=== PATIENT | male | born 1950 | race Caucasian/White ===

== ENCOUNTER 2016-04-19 01:25 | Emergency (ER) | payer OTHER ==
[~2016-04-19] VITALS: Ht 160 cm; Wt 86.2 kg
[~2016-04-19 01:25] MED LIST: ADVAIR 250-501 EACH INH; ADVAIR DISKUS 21 DSK INH; ALBUTEROL 3 ML3 ML INH; ALBUTEROL0.09 MG/A1 INH; ASPIR 8181 MG PO; ATIVAN1 M1 PO; ATROVENT 0.02%2.5 ML INH; BYSTOLIC10 MG PO; BYSTOLIC20 MG PO; CEFTIN500 M1 PO; CILOSTAZOL100 MG PO; CRESTOR20 M2 PO; FUROSEMIDE40 MG PO; GABAPENTIN100 M2 PO; HYDRODIURIL 112.5 MG PO; HYDROXYZINE PAM25 MG PO; KLOR-CON 10MEQ10 MEQ PO; LASIX20 MG PO; LASIX40 MG PO; LIDOCAINE1 EACH TOP; METOLAZONE2.5 M1 PO; METOLAZONE5 M1 PO; MORPHINE SULFAT10 M1 PO; MORPHINE SULFAT15 M2 PO; NAC600 MG PO; NATURAL IRON65 MG PO; NITROSTAT0.4 M1 SL; NOVOLOG FL100 UNIT/1 SC; Nitro-Bid TOP; OMEPRAZOLE10 M1 PO; OMEPRAZOLE40 MG PO; PLAVIX 75MG TAB75 MG PO; PREDNISONE 10MG10 M1 PO; PREDNISONE10 M2 PO; RANEXA1000 MG PO; ROCEPHIN1000 MG IV; TUDORZA PR400 MCG/Ac INH; VALSARTAN AND H1 TA1 PO; VALSARTAN320 MG PO; VITAMIN D1000 IU PO; ZETIA10 MG PO; ZITHROMAX500 M2 PO; ZOFRAN4 M1 SL; ZONTIVITY2.08 MG PO
--- NOTE | 2016-04-19 01:32 | ED UPPER/LOWER EXTREMITY COMPL ---
History of Present Illness General Chief Complaint: Foot or Ankle Injury Stated Complaint: RIGHT ANKLE PAIN Source: patient Exam Limitations: no limitations Vital Signs & Intake/Output Vital Signs & Intake/Output Vital Signs Date Time Temp Pulse Resp B/P Pulse O2 O2 Flow FiO2 Ox Delivery Rate 04/19 0130 97.0 73 20 111/63 91 Nasal 2.0L Cannula Allergies Coded Allergies: amoxicillin (Severe, TROUBLE BREATHING AND RASH 08/01/15) Penicillins (UNKNOWN 08/01/15) Opioids - Morphine Analogues (SENSITIVITY 08/01/15) Uncoded Allergies: ANTIBIOTIC THAT STARTS WITH AN "A" (UNKNOWN 05/05/12) Reconcile Medications Aclidinium [place] (Tudorza Pressair) 400 MCG/Actuation MARTIN 400 MCG INH BID BRTH (Reported) Albuterol Sulfate (Albuterol Sulfate Hfa) 0.09 MG/Actuation MARTIN 2 PUFF INH Q4- 6 PRN PRN SHORTNESS OF BREATH (Reported) 90 MCG PER PUFF Aspirin (Ecotrin) 81 MG TABLET.DR 1 TAB PO DAILY HEART (Reported) Cefuroxime Axetil (Ceftin) 500 MG TABLET 1 TAB PO BID PNUEMONIA with food Cholecalciferol (Vitamin D3) 1,000 IU TAB 1,000 IU PO DAILY VITAMIN D SUPPLEMET (Reported) Clopidogrel Bisulfate (Plavix) 75 MG TABLET 1 TAB PO DAILY HEART (Reported) FERROUS SULFATE (IRON) 325 MG (65 MG IRON) TABLET 1 TAB PO DAILY SUPPLEMENT ( Reported) FLUTICASONE/SALMETEROL (Advair 250-50 Diskus) 250 MCG-50 MCG/DOSE BLST.W.DEV 1 PUF INH BID copd (Reported) Furosemide 40 MG TAB 1 TAB PO DAILY WATER PILL (Reported) Gabapentin 100 MG CAPSULE 1 CAP PO TID BACK PAIN Hydromorphone HCl (Dilaudid) 4 MG TABLET 1 TAB PO 4XDP PRN PAIN TEN...[id number] Insulin Aspart, Recombinant (Novolog Flexpen) 100 UNIT/1 ML INSULN.PEN 1 UNIT SC SI steroid induced hyperglycemia BEFORE MEALS Blood Insulin Sugar Units <80 0 81-100 0 101-200 2 201-250 4 251-300 6 301-350 8 351-400 10 >400 Call Doctor AT BEDTIME Blood Insulin Sugar Units <80 0 81-100 0 101-200 0 201-250 2 251-300 3 301-350 4 351-400 5 >400 Call Doctor Lidocaine 1 EACH ADH..PATCH 1 PAT TOP DAILY PRN DIABETIC NUEROPATHY PLEASE PUT PATCH EVERYDAY IN THE AREA OF PAIN(WHEN IN PAIN), KEEP IT FOR 10 TO 12 HOURS AMD REMOVE IT NIGHT TIME OR FOR FEW HOURS BEFORE USING THE NEXT PATCH THE FOLLOWING DAY. Lorazepam (Ativan) 1 MG TABLET 1 TAB PO BID PRN anxiety (Reported) Metolazone 5 MG TABLET 1 TAB PO EOD WATERPILL (Reported) Nebivolol Hydrochloride (Bystolic) 10 MG TAB 1 TAB PO DAILY HEART (Reported) Nitroglycerin (Nitrostat) 0.4 MG TAB.SUBL 1 TAB SL SI chest pain (Reported) 1st sign of attack; may repeat every 5 minutes until relief; if pain persists after 3 tablets in 15 minutes, prompt medical att Omeprazole 40 MG CAPSULE.DR 1 TAB PO DAILY STOMACH (Reported) Omeprazole 10 MG CAPSULE.DR 1 CAP PO DAILY STOMACH UPSET PLEASE TAKE ONE TABLET 30 MINS PRIOR TO TAKING PAIN MEDICATION TO PREVENT STOMACH UPSET. POTASSIUM CHLORIDE (KLOR-CON 10mEq TAB) 10 MEQ TABLET.ER 2 TAB PO DAILY SUPPLEMENT (Reported) Prednisone 10 MG TABLET 1 TAB PO SI SHORTNESS OF BREATH On Take 11/27-11/28 3 TABS 11/29-11/30 2 TABS 12/01-12/02 1 TAB, THEN STOP Rosuvastatin Calcium (Crestor) 20 MG TABLET 1 TAB PO DAILY hld (Reported) Valsartan 320 MG TAB 1 TAB PO DAILY HEART (Reported) Vorapaxar Sulfate (Zontivity) 2.08 MG TABLET 1 TAB PO DAILY blood thinner ( Reported) Triage Nurses Notes Reviewed? yes Onset: Abrupt Duration: day(s):, constant Timing: recent history Severity: mild, moderate Pain/Injury Location: Right: Ankle. Method of Injury: fall Modifying Factors: Improves With: rest. Worsens With: movement. HPI: 66-year-old gentleman history of O2 dependent COPD presents with right ankle pain. He states that yesterday he stepped off a step. He felt that his right ankle twisted. During the day continued to her all he walked. He comes to the emergency department, "just to get it checked out to make sure it is not broken. " He notes no other injury. He notes his right ankle is slightly swollen and hurts when he moves it. He is otherwise well Past History Travel History Traveled to [place] past 21 day No Medical History Any Pertinent Medical History? 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 No Review of Systems Review of Systems Constitutional: Reports: no symptoms. EENTM: Reports: no symptoms. Respiratory: Reports: no symptoms. Cardiovascular: Reports: no symptoms. Gastrointestinal/Abdominal: Reports: no symptoms. Genitourinary: Reports: no symptoms. Musculoskeletal: Reports: no symptoms. Skin: Reports: no symptoms. Neurological/Psychological: Reports: no symptoms. Hematologic/Endocrine: Reports: no symptoms. Immunological: Reports: no symptoms. All Other Systems: Reviewed and Negative Physical Exam Physical Exam General Appearance: well developed/nourished, mild distress Head: atraumatic Eyes: Bilateral: normal appearance. Ears, Nose, Throat: normal pharynx, normal ENT inspection, hearing grossly normal Neck: normal inspection, supple Cardiovascular/Respiratory: regular rate/rhythm Back: normal inspection Foot Right: diffuse tenderness around right ankle. Mild swelling around the right lateral malleolus with mild tenderness to palpation. Skin: intact, normal color, warm/dry Lymphatic: no anterior cervical magnolia Progress Differential Diagnosis: contusion, fracture, sprain, tendon injury Plan of Care: Orders Procedure Date/time Status XRY-ANKLE 3 OR MORE VIEWS R 04/19 138 Active Comments: PATIENT: MARY FLORES JR PRESENT AGE: 66 PATIENT ACCOUNT NO: [id number] : 51 LOCATION: [facility] ORDERING PHYSICIAN: SAM KHALIL MD SERVICE DATE: 04/19/16 EXAM TYPE: RAD - XRY-ANKLE 3 OR MORE VIEWS R EXAMINATION: 3 views of the right ankle CLINICAL INFORMATION: Right ankle pain COMPARISON: None TECHNIQUE: AP, lateral, and mortise views of the right ankle. FINDINGS: No fractures. Bony articulations are maintained. There is soft tissue swelling overlying the medial malleolus. Ankle mortise is intact. No ankle joint effusion. No radiopaque foreign bodies. IMPRESSION: Soft tissue swelling overlying the left medial malleolus. There are no acute osseous findings. DICTATED BY: NABEEL FERGUSON MD DATE/TIME DICTATED:04/19/16225 GUEST SERVICES ATTENDANT:CRESENCIO DATE/TIME TRANSCRIBED:04/19/16225 CONFIDENTIAL, DO NOT COPY WITHOUT APPROPRIATE AUTHORIZATION. <Electronically signed in Other Vendor System> SIGNED BY: NABEEL FERGUSON MD 04/19/16229 Departure Departure Disposition: HOME OR SELF CARE Condition: Stable Clinical Impression Primary Impression: Sprained ankle Referrals: RICHIE BARRIENTOS,SHANNON Maldonado (PCP/Family) Departure Forms: Customer Survey General Discharge Information Prescriptions: Current Visit Scripts Hydromorphone HCl (Dilaudid) 1 TAB PO 4XDP PRN PAIN #10 TAB TEN...[id number] Comments 04/19/16, 2:45am... pt without fx... discussed at length... pt to follow up with his orthopedist. Rx for dilaudid sent in to pharmacy. Close follow up advised.
--- NOTE | 2016-04-19 02:30 | RADIOLOGY REPORT ---
EXAMINATION: 3 views of the right ankle CLINICAL INFORMATION: Right ankle pain COMPARISON: None TECHNIQUE: AP, lateral, and mortise views of the right ankle. FINDINGS: No fractures. Bony articulations are maintained. There is soft tissue swelling overlying the medial malleolus. Ankle mortise is intact. No ankle joint effusion. No radiopaque foreign bodies. IMPRESSION: Soft tissue swelling overlying the left medial malleolus. There are no acute osseous findings.
[2016-04-19] MEDS ORDERED: DILAUDID4 M1 PO (02:38)
[2016-04-19] MEDS ORDERED: ZOFRAN ODT4 M1 SL (02:58)
[2016-04-19 03:05] VITALS: BP 115/74
== END 2016-04-19 03:06 ==
LOC: ERH 01:25
DX: S93.401A Sprain of unspecified ligament of right ankle, initial encounter (principal); W18.43XA Slipping, tripping and stumbling without falling due to stepping from one level to another, initial encounter
CPT/HCPCS: 73610-RT

== ENCOUNTER 2016-09-27 05:47 | Inpatient (IN) | payer OTHER ==
[~2016-09-27] VITALS: Ht 157.5 cm; Wt 87.5 kg
[~2016-09-27 05:47] MED LIST changes: +DILAUDID4 M1 PO; +ZOFRAN ODT4 M1 SL
[2016-09-27 06:34] LABS: ABSOLUTE BASOPHIL COUNT 0 /CUMM (0.0-0.2); ABSOLUTE EOSINOPHIL COUNT 0.2 /CUMM (0.0-0.7); ABSOLUTE GRANULOCYTE CT 10.1 /CUMM (1.4-6.5); ABSOLUTE LYMPH COUNT 0.6 /CUMM (1.2-3.4); ABSOLUTE MONOCYTE COUNT 1.1 /CUMM (0.10-0.60); BASOPHIL % 0.1 % (0.0-2.0); EOSINOPHIL % 1.8 % (0-5); GRANULOCYTE % 83.5 % (42.2-75.2); HEMATOCRIT 41.5 % (42-52); MEAN CORPUSCULAR HGB 32.3 PG (27.0-31.0); MEAN CORPUSCULAR HGB CONC 33.7 G/DL (33.0-37.0); MEAN CORPUSCULAR VOLUME 95.7 FL (80.0-94.0); MEAN PLATELET VOLUME 8.3 FL (7.4-10.4); PLATELET COUNT 111 /CUMM (130-400); RBC DISTRIBUTION WIDTH 14.1 % (11.5-14.5); RED BLOOD CELL CT 4.33 /CUMM (4.70-6.10); WHITE BLOOD CELL COUNT 12.1 /CUMM (4.8-10.8)
[2016-09-27 06:40] LABS: PT 11.5 SEC (9.4-12.5); PTT 32 SEC (25-37)
--- NOTE | 2016-09-27 06:52 | ED DYSPNEA/ASTHMA COMPLAINT ---
History of Present Illness General Chief Complaint: Dyspnea (COPD, CHF, Other) Stated Complaint: "PER PT COPD, TROUBLE BREATHING" Source: patient Exam Limitations: no limitations Vital Signs & Intake/Output Vital Signs & Intake/Output Vital Signs Date Time Temp Pulse Resp B/P B/P Pulse O2 O2 Flow FiO2 Mean Ox Delivery Rate 09/27 1107 100 20 140/80 93 Nasal 2.0L Cannula 09/27 1039 99.0 101 22 166/66 92 Nasal 2.0L Cannula 09/27 0945 98.7 103 20 140/80 / 0937 103 20 140/80 97 Nasal 2.0L Cannula 09/27 0729 94 Nasal 2.0L Cannula 09/27 0728 98.7 73 20 170/90 97 Nasal 2.0L Cannula 09/27 0607 98.6 102 24 186/77 88 Nasal 2.0L Cannula Allergies Coded Allergies: amoxicillin (Severe, TROUBLE BREATHING AND RASH 08/01/15) Penicillins (UNKNOWN 08/01/15) Opioids - Morphine Analogues (SENSITIVITY 08/01/15) Uncoded Allergies: ANTIBIOTIC THAT STARTS WITH AN "A" (UNKNOWN 05/05/12) Triage Note: PER PT SOB X 2 DAYS, REPORTS USUUALLY ON 2LITERS NC WITH GOOD SATS THIS AM "LOW READINGS" EKG DONE O2 SAT 8 ON USUAL 2 LITERS Triage Nurses Notes Reviewed? yes HPI: Patient presents for evaluation of moderate to severe and worsening shortness of breath secondary to COPD began gradually over the past 2 days. Patient states his COPD has been exacerbated due to a combination of seasonal allergy symptoms (runny nose, sneezing) and the humidity. He is on chronic home O2 therapy. He has had a cough productive of a whitish phlegm. He felt chills this morning prompting him to come to the emergency department because of a concern over pneumonia (patient has had pneumonia in the past). He denies any associated chest pain. Although he has chronic leg swelling that has been no acute change. (LIDA BARRIENTOS,NABEEL Travis) Reconcile Medications Aclidinium [place] (Tudorza Pressair) 400 MCG/Actuation MARTIN 400 MCG INH BID BRTH (Reported) Aspirin (Ecotrin) 81 MG TABLET.DR 1 TAB PO DAILY HEART (Reported) Cholecalciferol (Vitamin D3) 1,000 IU TAB 1,000 IU PO DAILY VITAMIN D SUPPLEMET (Reported) Clopidogrel Bisulfate (Plavix) 75 MG TABLET 1 TAB PO DAILY HEART (Reported) FERROUS SULFATE (IRON) 325 MG (65 MG IRON) TABLET 1 TAB PO DAILY SUPPLEMENT ( Reported) FLUTICASONE/SALMETEROL (Advair 250-50 Diskus) 250 MCG-50 MCG/DOSE BLST.W.DEV 1 PUF INH BID copd (Reported) Furosemide 40 MG TAB 1 TAB PO DAILY WATER PILL (Reported) Lorazepam (Ativan) 1 MG TABLET 1 TAB PO BID PRN anxiety (Reported) Metolazone 5 MG TABLET 1 TAB PO EOD WATERPILL (Reported) Nebivolol Hydrochloride (Bystolic) 10 MG TAB 1 TAB PO DAILY HEART (Reported) POTASSIUM CHLORIDE (KLOR-CON 10mEq TAB) 10 MEQ TABLET.ER 2 TAB PO DAILY SUPPLEMENT (Reported) Rosuvastatin Calcium (Crestor) 20 MG TABLET 1 TAB PO DAILY hld (Reported) Valsartan 320 MG TAB 1 TAB PO DAILY HEART (Reported) (GERMAINE BARRIENTOS,ORLANDO Canchola) Past History Travel History Traveled to [place] past 21 day No Medical History Any Pertinent Medical History? 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 No (LIDA BARRIENTOS,NABEEL Travis) Review of Systems Review of Systems Constitutional: Reports: no symptoms. EENTM: Reports: no symptoms. Respiratory: Reports: see HPI. Cardiovascular: Reports: no symptoms. GI: Reports: no symptoms. Genitourinary: Reports: no symptoms. Musculoskeletal: Reports: no symptoms. Skin: Reports: no symptoms. Neurological/Psychological: Reports: no symptoms. Hematologic/Endocrine: Reports: no symptoms. Immunologic/Allergic: Reports: no symptoms. All Other Systems: Reviewed and Negative (LDIA BARRIENTOS,NABEEL Travis) Physical Exam Physical Exam Respiratory: see below Comments: Gen.: Well-nourished, well-developed, no acute respiratory distress. Head: Normocephalic, atraumatic. Eyes: Normal inspection bilaterally Ears: Normal inspection bilaterally Nose: Normal inspection Throat/mouth : Moist mucosa Neck: Supple, full range of motion, no goiter Heart: Regular rate and rhythm, no murmurs rubs or gallops Lungs: Globally diminished air entry with rales and rhonchi over the left chest and scattered end expiratory wheezing posteriorly Chest: Nontender Back: Normal range of motion Abdomen: Soft, nontender, nondistended, normal bowel sounds Extremities: Normal range of motion grossly, equal radial pulses, no cyanosis, mild pitting pretibial edema bilaterally Neurologic: Cranial nerves grossly intact, speech is clear Skin: warm and dry Psychiatric: Calm, cooperative, no apparent delusions or hallucinations (LIDA BARRIENTOS,NABEEL Travis) Core Measures ACS in differential dx? No Severe Sepsis Present: No Septic Shock Present: No (GERMAINE BARRIENTOS,OR[place]O Canchola) Progress Differential Diagnosis: asthma, AMI, bronchitis, CHF, COPD, pneumonia, unstable angina Plan of Care: Orders Procedure Date/time Status Regular Diet 09/27 L Active Add-on Test (ER Only) 09/27 0624 Active PARTIAL THROMBOPLASTIN TIME 09/27 0620 Complete PROTHROMBIN TIME 09/27 0620 Complete TROPONIN LEVEL 09/27 0609 Complete COMPREHENSIVE METABOLIC PANEL 09/27 0609 Complete CBC WITHOUT DIFFERENTIAL 09/27 0609 Complete B-TYPE NATRIURETIC PEP (BNP) 09/27 0609 Complete EKG 09/27 0550 Active Current Medications Sig/Carlito Start time Last Medication Dose Stop Time Status Admin Aspirin Buffered 81 MG DAILY 09/27 1000 UNVr 09/27 (Ecotrin) 0945 Budesonide/ 2 PUF BID 09/27 1000 AC 09/27 Formoterol Fumarate 0945 (Symbicort) Clopidogrel Bisulfate 75 MG DAILY 09/27 1000 UNVr 09/27 (Plavix) 0945 Ferrous Sulfate 325 MG DAILY 09/27 1000 UNVr 09/27 (Feosol) 0945 Furosemide 40 MG DAILY 09/27 1000 UNVr 09/27 (Lasix) 0945 Metolazone 5 MG DAILY 09/27 1000 UNVr 09/27 (Zaroxolyn) 0945 Nebivolol 10 MG DAILY 09/27 1000 UNVr 09/27 (Bystolic) 0945 Laboratory Tests 09/27/16 0620: Anion Gap 13, Estimated GFR 44 L, BUN/Creatinine Ratio 24.4, Glucose 108 H, Calcium 9.9, Total Bilirubin 0.6, AST 24, ALT 27, Alkaline Phosphatase 57, Troponin I 0.04, Prg-P-Lohtxcqxehz Pept 480 H, Total Protein 6.2 L, Albumin 4.0, Globulin 2.2, Albumin/Globulin Ratio 1.8, PT 11.5, INR 1.10, APTT 32, CBC w Diff NO MAN DIFF REQ, RBC 4.33 L, MCV 95.7 H, MCH 32.3 H, RDW 14.1, MPV 8.3, Gran % 83.5 H, Lymphocytes % 5.3 L, Monocytes % 9.3, Eosinophils % 1.8, Basophils % 0.1, Absolute Granulocytes 10.1 H, Absolute Lymphocytes 0.6 L, Absolute Monocytes 1.1 H, Absolute Eosinophils 0.2, Absolute Basophils 0, PUBS MCHC 33.7 Diagnostic Imaging: Discussed w/RAD: Radiology Read. CXR Impression: PATIENT: MARY FLORES JR PRESENT AGE: 66 PATIENT ACCOUNT NO: [id number] : 51 LOCATION: [facility] ORDERING PHYSICIAN: NABEEL HILTON MD SERVICE DATE: 09/27/16 EXAM TYPE: RAD - XRY-CHEST XRAY, PA AND LATERAL EXAMINATION: XR CHEST CLINICAL INFORMATION: Shortness of breath. Low O2 saturation. COMPARISON: Chest x-ray 11/24/2015, , 04/23/2013 TECHNIQUE: 2 views of the chest were obtained. FINDINGS: There is mild increased interstitial lung markings. These are similar to the chest x-ray of 04/23/2013 but less pronounced than the chest x-ray of 2015. Mild interstitial edema without overt pulmonary edema. Heart size is normal. There is vascular wall calcifications of aorta. No large pleural effusion. No focal dense consolidation. Surgical clips in right oz with linear scarring in right midlung. There are surgical clips in the lower neck. IMPRESSION: Mild increased interstitial lung markings suggesting a mild interstitial edema without overt pulmonary edema. DICTATED BY: REINA HAWTHORNE MD DATE/TIME DICTATED:09/27/16644 PATROL INSPECTOR:CRESENCIO DATE/TIME TRANSCRIBED:09/27/16644 CONFIDENTIAL, DO NOT COPY WITHOUT APPROPRIATE AUTHORIZATION. <Electronically signed in Other Vendor System> SIGNED BY: REINA HAWTHORNE MD 09/27/16 0651 Initial ED EKG: NSR, rate (97), nonspecific ST T wave chg (inferiorly) Comments: 09/27/2016 7:48:18 AM patient signed out to Dr. Contreras at shift exchange consultant. (LIDA BARRIENTOS,NABEEL Travis) Comments: pt's ambulatory saturation dropped to 80%. Pt will be admitted for copd exacerbation. (GERMAINE BARRIENTOS,OR[place]O Canchola) Departure Departure Referrals: RICHIE BARRIENTOS,SHANNON Maldonado (PCP/Family) Departure Forms: Customer Survey General Discharge Information (LIDA BARRIENTOS,NABEEL Travis) Departure Disposition: STILL A PATIENT Condition: Guarded Clinical Impression Primary Impression: COPD exacerbation Admission Note Spoke With: GERMAIN BARRIENTOS,YULIET Documentation of Exam: Documentation of any treatments & extenuating circumstances including Concerns Regarding Discharge (functional status, medication knowledge or non-compliance, living conditions, etc.) that warrant an admission rather than observation: [IV abx, iv steroids, nebs, pum consult, o2] (GERMAINE BARRIENTOS,OR[place]O Canchola) Critical Care Note Critical Care Note Critical Care Time: non-applicable ([place] CONTRERAS MD)
--- NOTE | 2016-09-27 13:25 | History & Physical ---
SUDHA MILTON 09/27/16 1250: General Information and HPI MD Statement: I have seen and personally examined MARY FLORES Paul GO and documented this H&P. The patient is a 66 year old M who presented with a patient stated chief complaint of SOB. Source of Information: patient Exam Limitations: no limitations History of Present Illness: Patient is a 66-year-old gentleman with complicated past medical history significant for stage I lung cancer status post right middle lobe resection in 2005, history of chronic respiratory failure due to COPD on 2 L oxygen at home, history of coronary artery disease status post CA and LAD stent placement in 2012 on dual antiplatelet therapy, history of mitral valve prolapse , significant peripheral vascular disease status post bilateral lower stay with the angioplasty and stent placement complicated with compartment syndrome requiring fasciotomy ,history of hypertension and hyperlipidemia, she of chronic kidney disease stage IIIB,hepatitis C in remission since 2013, steroid induced diabetes presented, admitted to [facility] in October 2015 due to acute on chronic hypoxic respiratory failure due to community for pneumonia , presented the ED for the evaluation of worsening shortness of breath, cough for the last 1 week. Patient mentioned that this year he had been getting sick with seasonal allergies multiple times. Since last week he had been having stuffy nose/ sneezing associated with humidity. For the last 2 days he has been having shortness of breath mostly on exertion associated with productive cough yellowish/whitish in color, not associated with any chest discomfort palpitations. This morning at around 3 AM he had chills without any fever that prompted him to come to the ER for further evaluation as he was concerned that he is developing another episode of pneumonia(of the note patient had been admitted multiple times due to pneumonia and COPD exacerbation in the past). He usually follows of the die repair Dr. Dawson Avila at [facility] recent PFT done at his office showed worsening COPD with FEV1 decreased to 33% In the ED patient was afebrile pulse 102, blood pressure 186/77 saturating on 88 % on 2 L. Patient received one-time dose of IV Solu-Medrol 125 mg in the ED along with azithromycin and ceftriaxone that resulted in improvement of his symptoms Allergies/Medications Allergies: Coded Allergies: amoxicillin (Severe, TROUBLE BREATHING AND RASH 08/01/15) Penicillins (UNKNOWN 08/01/15) Opioids - Morphine Analogues (SENSITIVITY 08/01/15) Uncoded Allergies: ANTIBIOTIC THAT STARTS WITH AN "A" (UNKNOWN 05/05/12) Home Med list Aclidinium [place] (Tudorza Pressair) 400 MCG/Actuation MARTIN 400 MCG INH BID BRTH (Reported) Aspirin (Ecotrin) 81 MG TABLET.DR 1 TAB PO DAILY HEART (Reported) Azithromycin 250 MG TABLET 250 MG PO DAILY COPD Cholecalciferol (Vitamin D3) 1,000 IU TAB 1,000 IU PO DAILY VITAMIN D SUPPLEMET (Reported) Clopidogrel Bisulfate (Plavix) 75 MG TABLET 1 TAB PO DAILY HEART (Reported) FERROUS SULFATE (IRON) 325 MG (65 MG IRON) TABLET 1 TAB PO DAILY SUPPLEMENT ( Reported) FLUTICASONE/SALMETEROL (Advair 250-50 Diskus) 250 MCG-50 MCG/DOSE BLST.W.DEV 1 PUF INH BID copd (Reported) Furosemide 40 MG TAB 1 TAB PO DAILY WATER PILL (Reported) Heparin Sodium,Porcine/D5w (Heparin-D5w 25,000 Unit/250 Ml) 25,000 UNIT/250 ML ( 100 UNIT/ML) IV.SOLN 0 IV TITR ACS Ipratropium [place] (Atrovent Hfa) 17 MCG/ACTUATION HFA.AER.AD 2 PUFF INH Q4 HRS NEEDED PRN SHORTNESS OF BREATH (Reported) Lorazepam (Ativan) 1 MG TABLET 1 TAB PO BID PRN anxiety (Reported) Metolazone 5 MG TABLET 1 TAB PO EOD WATERPILL (Reported) Nebivolol Hydrochloride (Bystolic) 10 MG TAB 1 TAB PO DAILY HEART (Reported) Nitroglycerin (Nitro-Bid) 2 % OINT...G. 0.5 GM TOP Q6 CHEST PAIN Omeprazole 40 MG CAPSULE.DR 1 CAP PO DAILY ACID REFLUX (Reported) POTASSIUM CHLORIDE (KLOR-CON 10mEq TAB) 10 MEQ TABLET.ER 2 TAB PO DAILY SUPPLEMENT (Reported) Rosuvastatin Calcium (Crestor) 20 MG TABLET 1 TAB PO DAILY hld (Reported) Ticagrelor (Brilinta) 90 MG TABLET 90 MG PO BID CAD Valsartan 320 MG TAB 1 TAB PO DAILY HEART (Reported) Past History Travel History Traveled to [place] past 21 day No Medical History Neurological: BLE NEUROPATHY TRIGEMINAL NEURALGIA EENT: NONE Cardiovascular: CAD, diastolic CHF, hypertension, hyperlipidemia, myocardial infarction, NSTEMI Respiratory: COPD, LUNG CANCER 2005 Gastrointestinal: GERD Hepatic: hepatitis C Renal: chronic kidney disease, STAGE 3 Musculoskeletal: chronic back pain, osteoarthritis Psychiatric: NONE Endocrine: diabetes Blood Disorders: NONE Cancer(s): 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 self Services at Home: Oxygen Primary Language: Kiswahili Living Will? yes Functional Ability ADLs Independent: dressing, eating, toileting, bathing. Ambulation: independent IADLs Independent: shopping, housework, finances, food prep, telephone, transportation , medication admin. Review of Systems Review of Systems Constitutional: Reports: chills. Denies: diaphoresis, fever, malaise. EENTM: Denies: double vision, visual changes. Cardiovascular: Denies: chest pain, edema, orthopena. Respiratory: Reports: short of breath. Denies: cough, hemoptysis, sputum production, stridor. GI: Denies: abdominal pain, bloating, constipation. Genitourinary: Denies: discharge, frequency, hematuria. Musculoskeletal: Denies: back pain, gout, joint pain. Skin: Denies: cysts, change in hair/nails. Neurological/Psychological: Denies: anxiety, ataxia, cognitive dysfunction. Hematologic/Endocrine: Denies: bruising, bleeding. Exam & Diagnostic Data Last 24 Hrs of Vital Signs/I&O Vital Signs Date Time Temp Pulse Resp B/P B/P Pulse O2 O2 Flow FiO2 Mean Ox Delivery Rate 09/27 1158 95 Nasal 2.0L Cannula 09/27 1107 100 20 140/80 93 Nasal 2.0L Cannula 09/27 1039 99.0 101 22 166/66 92 Nasal 2.0L Cannula 09/27 0945 98.7 103 20 140/80 09/27 0937 103 20 140/80 97 Nasal 2.0L Cannula 09/27 0729 94 Nasal 2.0L Cannula 09/27 0728 98.7 73 20 170/90 97 Nasal 2.0L Cannula 09/27 0607 98.6 102 24 186/77 88 Nasal 2.0L Cannula Intake & Output 09/27 1600 09/27 0800 09/27 0000 Intake Total 250 Output Total 850 Balance -600 Intake, IV 250 Output, Urine 850 Patient 192 lb Weight Physical Exam General Appearance Alert, Oriented X3, No Acute Distress Skin No Rashes, No Breakdown Skin Temp/Moisture Exam: Cool/Dry Sepsis Skin Exam (color): Cyanotic HEENT Atraumatic, PERRLA, EOMI Cardiovascular Regular Rate, Normal S1, Normal S2 Lungs bilateral wheeze on lung exam Abdomen Normal Bowel Sounds, Soft, No Tenderness Neurological Normal Gait, Normal Speech, Strength at 5/5 X4 Ext Last 24 Hrs of Labs/Leonel: Laboratory Tests 09/27/16 0620: Anion Gap 13, Estimated GFR 44 L, BUN/Creatinine Ratio 24.4, Glucose 108 H, Calcium 9.9, Total Bilirubin 0.6, AST 24, ALT 27, Alkaline Phosphatase 57, Troponin I 0.04, Tsy-K-Jvieyexloom Pept 480 H, Total Protein 6.2 L, Albumin 4.0, Globulin 2.2, Albumin/Globulin Ratio 1.8, PT 11.5, INR 1.10, APTT 32, CBC w Diff NO MAN DIFF REQ, RBC 4.33 L, MCV 95.7 H, MCH 32.3 H, RDW 14.1, MPV 8.3, Gran % 83.5 H, Lymphocytes % 5.3 L, Monocytes % 9.3, Eosinophils % 1.8, Basophils % 0.1, Absolute Granulocytes 10.1 H, Absolute Lymphocytes 0.6 L, Absolute Monocytes 1.1 H, Absolute Eosinophils 0.2, Absolute Basophils 0, PUBS MCHC 33.7 Microbiology 09/27 1255 BLOOD: Blood Culture - RECD 09/27 1210 LOWER RESP: Respiratory Culture - ORD 09/27 1210 LOWER RESP: Gram Stain - ORD 09/27 1210 BLOOD: Blood Culture - ORD Assessment/Plan Assessment: This is a 66-year-old gentleman with with multiple comorbidities including stage I lung cancer status post right middle lobe resection in 2005, history of chronic respiratory failure due to COPD on 2 L oxygen at home, history of coronary artery disease status post CA and LAD stent placement in 2012 on dual antiplatelet therapy, history of mitral valve prolapse , significant peripheral vascular disease status post bilateral lower stay with the angioplasty and stent placement complicated with compartment syndrome requiring fasciotomy ,history of hypertension and hyperlipidemia, history of of chronic kidney disease stage IIIB ,hepatitis C in remission since 2013, steroid induced diabetes presented, admitted to [facility] in October 2015 due to acute on chronic hypoxic respiratory failure due to community for pneumonia , presented the ED for the evaluation of worsening shortness of breath, cough for the last 1 week. Vitals on admission 2098.6, pulse of 102, blood pressure 186/77, respiration rate 24, saturating initially 88% on 2 L improved to percent on 2 L after getting IV steroids. Labs on admission WBC count 12.4 with a granulocytosis, H&H is stable low platelet count 111, hypokalemia 3.3, BUN and creatinine 39/1.6. Close to the baseline, proBNP 480 EKG showed normal sinus rhythm without any STT changes IN 148, QTC 468 Chest x-ray done in the ED: Mild increased interstitial lung markings suggesting a mild interstitial edema without overt pulmonary edema. Problem list: 1. Acute on chronic hypoxic respiratory failure due to COPD exacerbation 2. History of ischemic cardiomyopathy status post CA and LAD placement in 2012 3. .History of steroid-induced doses diabetes 4.. History of chronic kidney disease stage IIIB 5. History of hypertension hyperlipidemia 6. History of systolic heart failure(EF checked in October 2015 was 50%)7. History of severe 7.peripheral vascular disease status post post bilateral lower stay with the angioplasty and stent placement 8. History of chronic mastoiditis of the back. plan : 1. Acute on chronic hypoxic respiratory failure due to COPD exacerbation: * We will admit the patient to the [facility] floor. * Patient received one-time dose of IV Solu-Medrol in the ED still appears dyspneic with bilateral wheeze on exam ,will continue with IV Solu-Medrol 40 mg every 8 hours. * Continue with azithromycin for its anti-inflammatory properties * Chest x-ray is not consistent with any evolving pneumonia we will hold off ceftriaxone for now will send blood cultures and sputum cultures. * And vitals every 4 hours * Continue oxygen keep saturations above 92% * Watch for any hemodynamic instability 2.Hstory of ischemic cardiomyopathy status post CA and LAD placement in 2012: * Continue to hold antiplatelet therapy with aspirin and Plavix. * Continue Bystolic, valsartan(losartan 50 mg daily here) and Crestor. 3. .History of steroid-induced doses diabetes: * Will keep the patient on low-dose NovoLog sliding scale with Accu-Cheks. 4.. History of chronic kidney disease stage IIIB: * BUN/creatinine is close to baseline * Repeat BEP tomorrow avoid any nephrotoxic agents. 5. History of hypertension hyperlipidemia : * Continue Crestor and other antihypertensive agents. 6. History of systolic heart failure(EF checked in October 2015 was 50%) * Continue home dose of Lasix and metolazone . 7. History of severe peripheral vascular disease status post post bilateral lower stay with the angioplasty and stent placement . * Continue aspirin and Plavix * Patient will be registered for outpatient extensive exercise program( recommended by his vascular surgeon as an outpatient) [id number] pain control with Tylenol DVT prophylaxis with subcutaneous heparin please monitor , thrombocytopenia, a platelet count goes below 100 stop subcutaneous heparin Patient is full code. As Ranked By This Provider Problem List: 1. COPD Core Measures/Miscellaneous Acute Coronary Syndrome ACS Diagnosis: No Cerebrovascular Accident CVA/TIA Diagnosis: No Congestive Heart Failure CHF Diagnosis: No VTE (View Protocol) VTE Risk Factors: Acute medical illness, Age > 40 [facility] prophylaxis d/t: No contraindications No VTE Pharm Prophylaxis d/t: No contraindications VTE Diagnosis: No VTE Type: NONE VTE Confirmed by (Test): NONE Sepsis (View Protocol) Severe Sepsis Present: No BC x2: Yes Lactic Acid x2: Yes IV ABX Broad Spectrum: Yes Septic Shock Septic Shock Present: No Miscellaneous Documentation Attending Case Discussed With: AMBAR BARRIENTOS,WES Irvin Primary Care Physician: SHANNON QUIROZ MD Patient sees these Specialists Dr Davis Level of Patient Care: Telemetry WES VILLALTA MD 09/27/16 1454: Attending MD Review Statement Attending Statement Attending MD Statement: examined this patient, discuss w/resident/PA/MACHINE APPLICATOR CEMENTER, agreed w/resident/PA/MACHINE APPLICATOR CEMENTER, discussed with nursing, reviewed images Attending Assessment/Plan: This is a correction to the residents H&P. The patient has stage I presumed and not stage IV lung cancer treated with surgery in the past. Also COPD with chronic respiratory failure on home oxygen and diastolic heart failure with elevated PA pressures chronic right heart failure. He takes Lasix and metolazone and the outside along with oxygen and has steroid induced secondary diabetes. He is here with what looks like an acute exacerbation of COPD as evidenced by shortness of breath, wheezing on physical exam, acute on chronic hypoxemic respiratory failure with a oxygen sat that went down to the low 80s on ambulation on 3 L and a chest x-ray negative for an infiltrate or CHF. At this point will bring him into [facility], treat him with IV steroids by mouth antibiotics for a bacterial bronchitis given his cough with yellow sputum and TRC with nebs. Will replete his hypokalemia, continue his diuretics and put him on heparin for DVT prophylaxis. We'll keep a low threshold to get pulmonary involved as in 2013 he was intubated in the setting of a COPD exacerbation and will need to follow that closely. His CKD is stable and will continue his arb
[2016-09-27 13:45] VITALS: BP 164/62
[2016-09-27] MEDS ORDERED: ATROVENT HFA12.9 GM INH (14:08)
[2016-09-27] MEDS ORDERED: OMEPRAZOLE40 M1 PO (14:26)
--- NOTE | 2016-09-27 14:54 | Admission Certification ---
Admission Certification Certification Statement - As attending physician, I certify that at the time of - admission, based on clinical presentation, severity of - symptoms, need for further diagnostic testing and - therapeutic interventions, and risk of adverse outcomes - without in-hospital treatment, in my clinical assessment, - this patient requires an acute hospital stay for a minimum - of two nights or longer. I have also considered psychsocial - factors such as support system, advanced age, financial - issues, cognitive issues, and failed out-patient treatments, - past re-admission history, safety of patient, and lack of - compliance as applicable. Specific rationale supporting this admission is: Acute hypoxemic respiratory failure with COPD exacerbation needs IV steroids.
[2016-09-27 17:06] VITALS: BP 150/60
[2016-09-27 21:20] VITALS: BP 180/80
--- NOTE | 2016-09-27 21:25 | Event Note ---
Event Note Event Note: S: Notiifeid by nurse, pateint was complianing of Chest Pain B:This is a 66 y/o admitted 09/26 for COPD, currently on Solu-Medrol and azithromycin. Patient was complaining of a 5 out of 10 chest pain substernal in location. Radiating to left arm. Patient states that this pain is dull and feels pressure-like. He does have an extensive history of coronary artery disease. A/R: Immediately following bedside evaluation ordered the following tests EKG Stat, Troponins stat. BEP and Magnesium Stat. We also gave a one-time nitroglycerin sublingual. Patient's electrolytes were deranged and so magnesium and potassium were ordered. Awaiting lab results prior to calling inbound sales consultant roll on man. 11.01 pm. Visited patient, reports symptoms improved, although still feels chest discmofort. 11.03 pm Called roll on man physician requested a call back from Office of Cariologisat. Dr Davis. Dr Hendricks roll on man, requested a stat call back. Recomendations from Dr Hendricks: IV Heparin per ACS protocol Nitroglycerin as needed for relief. Immediate transfer to telemetry. 11.40 pm Patient updated 1150 pm: Spoke extensively with the patient's daughter Denise and explained to her the sequence of events as well as our intention behind transferring Mr. Angel to telemetry. 12.10 pm Transferred patient to Tele, will sign out to resident.
[2016-09-27 23:01] VITALS: BP 180/80
[2016-09-27 23:58] VITALS: BP 184/82
[2016-09-28 00:40] VITALS: BP 180/70
[2016-09-28 02:16] VITALS: BP 150/70
--- NOTE | 2016-09-28 03:44 | Event Note ---
Event Note Event Note: Transfer accepted from general medicine. Dr. Hendricks contacted by Dr. Quinteros, plan to start IV heparin infusion for presumed ACS. Stool guiaic performed with negative result before initation of heparin drip. Also, blood glucose >400 at the time of transfer due to steroid treatment for COPD exacerbation and patient was treated with 10units of insulin, following accucheck approx 250. Discussed the plan with patient and family. Echocardiogram ordered for 09/28/16
[2016-09-28 04:35] LABS: MEAN PLATELET VOLUME 8.8 FL (7.4-10.4)
[2016-09-28 04:44] LABS: HEMATOCRIT 41.3 % (42-52); MEAN CORPUSCULAR HGB 32.3 PG (27.0-31.0); MEAN CORPUSCULAR HGB CONC 33.7 G/DL (33.0-37.0); MEAN CORPUSCULAR VOLUME 95.8 FL (80.0-94.0); PLATELET COUNT 127 /CUMM (130-400); RBC DISTRIBUTION WIDTH 14.1 % (11.5-14.5); RED BLOOD CELL CT 4.32 /CUMM (4.70-6.10)
[2016-09-28 04:45] LABS: ABSOLUTE BASOPHIL COUNT 0 /CUMM (0.0-0.2); ABSOLUTE EOSINOPHIL COUNT 0 /CUMM (0.0-0.7); ABSOLUTE GRANULOCYTE CT 13.5 /CUMM (1.4-6.5); ABSOLUTE LYMPH COUNT 0.6 /CUMM (1.2-3.4); ABSOLUTE MONOCYTE COUNT 0.9 /CUMM (0.10-0.60); BASOPHIL % 0 % (0.0-2.0); EOSINOPHIL % 0 % (0-5); GRANULOCYTE % 90.1 % (42.2-75.2)
[2016-09-28 05:41] VITALS: BP 140/80
--- NOTE | 2016-09-28 06:04 | Event Note ---
Event Note Event Note: We were informed by the nursing staff about critical value of elevated troponins for Mr. russell to 12.8 from less than 0.06. Patient was seen and examined. He was comfortable, asymptomatic without any chest pain. Repeat EKG was not changed from previous. Attending Montserrat Aj MD was informed decision was made to transfer patient to ICU. Dr. Shea was also informed and he agrees to transfer patient to ICU. he might go for cardiac cath but final decision would be made after Dr. Hendricks will see the patient. We'll keep him nothing by mouth for now. Family was also updated. Of note patient is already on heparin drip.
--- NOTE | 2016-09-28 06:18 | Discharge Summary ---
Visit Information Visit Dates Admission Date: 09/27/16 Discharge Date: 09/29/16 Hospital Course Course Attending Physician: AMBAR BARRIENTOS,WES Irvin Primary Care Physician: RICHIE BARRIENTOS,SHANNON Maldonado Consulting Request: Consulting Specialty: Cardiology Consulting Physician: Dr. Hendricks Reason for Consult: elevated troponins Hospital Course: Patient is a 66-year-old gentleman with complicated past medical history significant for stage I lung cancer status post right middle lobe resection in 2005, history of chronic respiratory failure due to COPD on 2 L oxygen at home, history of coronary artery disease status post ME and LAD stent placement in 2012 on dual antiplatelet therapy, history of mitral valve prolapse , significant peripheral vascular disease status post bilateral lower stay with the angioplasty and stent placement complicated with compartment syndrome requiring fasciotomy ,history of hypertension and hyperlipidemia, she of chronic kidney disease stage IIIB,hepatitis C in remission since 2013, steroid induced diabetes presented, admitted to [facility] 2015 due to acute on chronic hypoxic respiratory failure due to community acquired pneumonia , presented the ED for the evaluation of worsening shortness of breath, cough for the last 1 week. In the ED patient was afebrile pulse 102, blood pressure 186/77 saturating on 88 % on 2 L. Patient received one-time dose of IV Solu-Medrol 125 mg in the ED along with azithromycin and ceftriaxone that resulted in improvement of his symptoms. He was first admitted on general medical floor for treatment of COPD exacerbation and was started on azithromycin, Solu-Medrol, TRC and nebulization. His home medications including Plavix, aspirin, nebivolol, Lasix, metolazone were continued. Around 11 PM patient was complaining of substernal chest pain/pressure 5 out of 10 radiating to left arm. His symptoms were improved with nitroglycerin. EKG showed new T-wave changes. Patient was transferred to telemetry floor. He was symptom-free later. First 2 sets of troponins were negative but third set around 5:30 AM came back positive for 12.8 and patient was transferred to ICU. Troponins/EKG were trended until they peaked at 27.20 without any new EKG changes. Patient remained in the ICU for observation and denied any further episodes of chest pain or worsened shortness of breath, for which an urgent cathetizeration was deferred at that time. Patient was discontinued from plavix and loaded with Brilinta and continued on 90mg PO BID. Patient was evaluated by his primary roving frame tender whom discussed performing a cardiac catheterization on the patient, whom agreed and consented to the procedure. Patient will be transferred to [facility] under the care of Dr. Duong for a cardiac cathetherization. Patient has a history of CKD with creatinine baseline of 1.7 and was informed of the potential worsening of his renal disease due to contrast media from the procedure. He is continued on the heparin drip and intravenous solumedrol on discharge. Complications: none Allergies: Coded Allergies: amoxicillin (Severe, TROUBLE BREATHING AND RASH 08/01/15) Penicillins (UNKNOWN 08/01/15) Opioids - Morphine Analogues (SENSITIVITY 08/01/15) Uncoded Allergies: ANTIBIOTIC THAT STARTS WITH AN "A" (UNKNOWN 05/05/12) Significant Procedures: SERVICE DATE: 09/27/16 EXAM TYPE: RAD - XRY-CHEST XRAY, PA AND LATERAL EXAMINATION: XR CHEST CLINICAL INFORMATION: Shortness of breath. Low O2 saturation. COMPARISON: Chest x-ray 11/24/2015, 12/14/2013, 04/23/2013 TECHNIQUE: 2 views of the chest were obtained. FINDINGS: There is mild increased interstitial lung markings. These are similar to the chest x-ray of 04/23/2013 but less pronounced than the chest x-ray of 11/24/2015. Mild interstitial edema without overt pulmonary edema. Heart size is normal. There is vascular wall calcifications of aorta. No large pleural effusion. No focal dense consolidation. Surgical clips in right oz with linear scarring in right midlung. There are surgical clips in the lower neck. IMPRESSION: Mild increased interstitial lung markings suggesting a mild interstitial edema without overt pulmonary edema. Disposition Summary Disposition Principal Diagnosis: COPD exacerbation Additional Diagnosis: NSTEMI Discharge Disposition: other general hospital Discharge Instructions General Discharge Information Code Status: Full Code Patient's Diet: Heart healthy diet currently nothing by mouth for presumptive cardiac cath Patient's Activity: As tolerated Follow-Up Instructions/Appts: Please follow-up with your primary care physician in one week of discharge Please follow-up with her neurologist in 1 week of discharge Medications at Discharge Discharge Medications: Stop taking the following medications: Clopidogrel Bisulfate (Plavix) 75 MG TABLET ORAL DAILY Continue taking these medications: FLUTICASONE/SALMETEROL (Advair 250-50 Diskus) 250 MCG-50 MCG/DOSE BLST.W.DEV 1 Puff Inhale through mouth TWICE DAILY Comments: NOT GIVEN IN HOSPITAL Aspirin (Ecotrin) 81 MG TABLET. 1 Tablet ORAL DAILY Comments: NOT GIVEN Rosuvastatin Calcium (Crestor) 20 MG TABLET 1 Tablet ORAL DAILY Comments: Last Taken: 09-28-16 Time: 4PM Lorazepam (Ativan) 1 MG TABLET 1 Tablet ORAL TWICE DAILY as needed for anxiety Comments: Last Taken: 09-29-16 Time: MIDNIGHT POTASSIUM CHLORIDE (KLOR-CON 10mEq TAB) 10 MEQ TABLET.ER 2 Tablet ORAL DAILY Comments: Last Taken: 12/19 Time: 1000 FERROUS SULFATE (IRON) 325 MG (65 MG IRON) TABLET 1 Tablet ORAL DAILY Comments: Last Taken: 12/19 Time: 1000 Aclidinium [place] (Tudorza Pressair) 400 MCG/Actuation MARTIN 400 Microgram Inhale through mouth TWICE DAILY Qty = 3 Valsartan (Valsartan) 320 MG TAB 1 Tablet ORAL DAILY Qty = 90 Nebivolol Hydrochloride (Bystolic) 10 MG TAB 1 Tablet ORAL DAILY Furosemide (Furosemide) 40 MG TAB 1 Tablet ORAL DAILY Qty = 90 Cholecalciferol (Vitamin D3) 1,000 IU TAB 1,000 International Unit ORAL DAILY Metolazone (Metolazone) 5 MG TABLET 1 Tablet ORAL Every other day Days = 1 Comments: Last Taken: 09-29-16 Time: 9 AM Ipratropium [place] (Atrovent Hfa) 17 MCG/ACTUATION HFA.AER.AD 2 PUFF Inhale through mouth EVERY 4 HOURS NEEDED as needed for SHORTNESS OF BREATH Omeprazole (Omeprazole) 40 MG CAPSULE. 1 Capsule ORAL DAILY Comments: NOT GIVEN WHILE IN HOSPITAL Start taking the following new medications: Azithromycin (Azithromycin) 250 MG TABLET 250 Milligram ORAL DAILY Days = 4 No Refills Comments: Last Taken: 09-29-16 Time: 9AM Nitroglycerin (Nitro-Bid) 2 % OINT...G. 0.5 Gram On the skin EVERY SIX HOURS Qty = 1 No Refills Comments: Last Taken: 09-29-16 Time: 6 AM Ticagrelor (Brilinta) 90 MG TABLET 90 Milligram ORAL TWICE DAILY Qty = 14 No Refills Comments: Last Taken: 09-29-16 Time: 9 AM Methylprednisolone Sod Succ/Pf (Solu-Medrol 40 MG Vial) 40 MG/ML VIAL 40 Milligram INTRAVEN EVERY 12 HOURS Qty = 5 No Refills Comments: Last Taken: 09-29-16 Time: 9 AM Heparin Sodium,Porcine/D5w (Heparin-D5w 25,000 Unit/250 Ml) 25,000 UNIT/250 ML ( 100 UNIT/ML) IV.SOLN 0 INTRAVEN TITRATE Qty = 1 No Refills Comments: Last Taken: 09-29-16 Time: 9 AM LAST PTT 63 AT MIDNIGHT ON 09-29-16 Copies To: RICHIE BARRIENTOS,SHANNON Maldonado Attending MD Review Statement Documenting Attending: AMBAR BARRIENTOS,EWS Irvin
[2016-09-28] MEDS ORDERED: AZITHROMYCIN250 M1 PO (06:22)
[2016-09-28] MEDS ORDERED: NITRO-BID1 GM TOP (06:22)
--- NOTE | 2016-09-28 06:24 | Patient Discharge Instructions ---
Discharge Instructions General Discharge Information You were seen/treated for: COPD exacerbation NSTEMI Special Instructions: Please follow-up with her primary care physician in one week of discharge Please follow-up with your senior linux systems engineer in 1 week of discharge follow-up with Workers Compensation Examiner in 1-2 weeks of discharge Diet Recommended Diet: Heart Healthy Activity Additional ACTIVITY Info: as tolerated Acute Coronary Syndrome Inclusion Criteria At DC or during hospital stay patient has or had the following: ACS DIAGNOSIS Yes Discharge Core Measures Meds if any: Prescribed or Continued at Discharge Aspirin Yes Beta-Kiesha Yes Statin Yes Meds if any: NOT Prescribed or Continued at Discharge Congestive Heart Failure Inclusion Criteria At DC or during hospital stay patient has or had the following: CHF DIAGNOSIS No Discharge Core Measures Meds if any: Prescribed or Continued at Discharge Meds if any: NOT Prescribed or Continued at Discharge Cerebrovascular accident Inclusion Criteria At DC or during hospital stay patient has or had the following: CVA/TIA Diagnosis No Discharge Core Measures Meds if any: Prescribed or Continued at Discharge Meds if any: NOT Prescribed or Continued at Discharge Venous thromboembolism Inclusion Criteria VTE Diagnosis No VTE Type NONE VTE Confirmed by (Test) NONE Discharge Core Measures - Per Current guidelines, there needs to be overlap - treatment for the first 5 days of Warfarin therapy. - If discharged on Warfarin prior to 5 days of - overlap therapy, the patient will need to be - assessed for post discharge needs including - *Post discharge parental anticoagulation - *Warfarin and/or parental anticoagulation education - *Follow up date to check INR post discharge At least 5 days overlap therapy as Inpatient No Meds if any: Prescribed or Continued at Discharge Note: Overlap Therapy is Warfarin and Anticoagulant Meds if any: NOT Prescribed or Continued at Discharge
--- NOTE | 2016-09-28 07:35 | Cons- CRCU ---
General Information and HPI History of Present Illness: 66 year old man with multiple medical problems significant for COPD on 2.0L home O2, CAD/[place] s/p PCI with LAD stent (2012), and Lung CA s/p RML resection (2005) admitted on 09/27/16 for acute hypoxic respiratory failure secondary to a COPD exacerbation. Patient was admitted to the general medicine floor and continued on supplemental oxygen, intravenous steroids, and antibiotics. Patient reports eating dinner last night around 6PM and developing 5/10 acute onset left sided chest pressure radiating to his left arm with associated worsening of his shortness of breath and palpitations. Patient was transfered to the telemetry floor at this time for further monitoring. Level Vial Inspector Dr. Hendricks was contacted regarding this by the night team whom recommended starting patient on intravenous heparin for presumed ACS, stool guiac was reportedly negative. Patient was given nitroglycerin and ativan that resolved his chest pain and associated symptoms. Troponins/EKG were trended, troponin around 11:00PM on 09/27/16 returned to 0.06. Next troponin around 4AM on 09/28/16 returned to 12.80. Patient denied any further symptoms at this time but was transfered to the ICU for closer observation and care. Presently patient states that his chest pain has resolved, but admits to persistent/worse shortness of breath. He otherwise denies any headache, fever, chills, blurred/double vision, lightheadedness/dizzines, nause,a vomiting, diarrhea PMHx: Stage I Lung Cancer s/p RML resection (2005), COPD on 2.0L home O2, CAD/[place] s/p PCI with LAD Stent (2012), MVP, PVD, CKD IIIB, Hepatitis C s/p treatment, Hypertension, Hyperlipidemia Allergies/Medications Allergies: Coded Allergies: amoxicillin (Severe, TROUBLE BREATHING AND RASH 08/01/15) Penicillins (UNKNOWN 08/01/15) Opioids - Morphine Analogues (SENSITIVITY 08/01/15) Uncoded Allergies: ANTIBIOTIC THAT STARTS WITH AN "A" (UNKNOWN 05/05/12) Home Med List: Aclidinium [place] (Tudorza Pressair) 400 MCG/Actuation MARTIN 400 MCG INH BID BRTH (Reported) Aspirin (Ecotrin) 81 MG TABLET.DR 1 TAB PO DAILY HEART (Reported) Azithromycin 250 MG TABLET 250 MG PO DAILY COPD Cholecalciferol (Vitamin D3) 1,000 IU TAB 1,000 IU PO DAILY VITAMIN D SUPPLEMET (Reported) Clopidogrel Bisulfate (Plavix) 75 MG TABLET 1 TAB PO DAILY HEART (Reported) FERROUS SULFATE (IRON) 325 MG (65 MG IRON) TABLET 1 TAB PO DAILY SUPPLEMENT ( Reported) FLUTICASONE/SALMETEROL (Advair 250-50 Diskus) 250 MCG-50 MCG/DOSE BLST.W.DEV 1 PUF INH BID copd (Reported) Furosemide 40 MG TAB 1 TAB PO DAILY WATER PILL (Reported) Ipratropium [place] (Atrovent Hfa) 17 MCG/ACTUATION HFA.AER.AD 2 PUFF INH Q4 HRS NEEDED PRN SHORTNESS OF BREATH (Reported) Lorazepam (Ativan) 1 MG TABLET 1 TAB PO BID PRN anxiety (Reported) Metolazone 5 MG TABLET 1 TAB PO EOD WATERPILL (Reported) Nebivolol Hydrochloride (Bystolic) 10 MG TAB 1 TAB PO DAILY HEART (Reported) Nitroglycerin (Nitro-Bid) 2 % OINT...G. 0.5 GM TOP Q6 CHEST PAIN Omeprazole 40 MG CAPSULE.DR 1 CAP PO DAILY ACID REFLUX (Reported) POTASSIUM CHLORIDE (KLOR-CON 10mEq TAB) 10 MEQ TABLET.ER 2 TAB PO DAILY SUPPLEMENT (Reported) Rosuvastatin Calcium (Crestor) 20 MG TABLET 1 TAB PO DAILY hld (Reported) Valsartan 320 MG TAB 1 TAB PO DAILY HEART (Reported) Past History Travel History Traveled to [place] past 21 day No Medical History Blood Transfusion Hx: Yes Neurological: BLE NEUROPATHY TRIGEMINAL NEURALGIA EENT: NONE Cardiovascular: CAD, diastolic CHF, hypertension, hyperlipidemia, myocardial infarction, NSTEMI, PVD Respiratory: bronchitis, COPD, LUNG CANCER 2005 Gastrointestinal: GERD Hepatic: cholelithiasis, hepatitis C Renal: chronic kidney disease, STAGE 3 Musculoskeletal: chronic back pain, osteoarthritis, DEGENERATIVE DISK D/O Psychiatric: anxiety Endocrine: STEROID INDUCED DM Blood Disorders: NONE Cancer(s): lung cancer CONSUMER RELATIONS SPECIALIST/Reproductive: NONE Surgical History Surgical History: fasciotomy for L calf compartment syndrome,b/l carotid endarterectomy, angioplasty of coronary artery and femoral artery b/l CARDIAC STENT PLACEMENT Psychosocial History Where Do You Live? Home Who Do You Live With? self Services at Home: Oxygen Primary Language: Emir[place] Smoking Status: Former Smoker Living Will? yes Functional Ability ADLs Independent: dressing, eating, toileting, bathing. Ambulation: independent IADLs Independent: shopping, housework, finances, food prep, telephone, transportation , medication admin. Assessment/Plan Consult Acknowledgment - Thank you for your consult request.
[2016-09-28 08:00] VITALS: BP 160/76
[2016-09-28 09:05] LABS: PTT 53 SEC (25-37)
--- NOTE | 2016-09-28 10:47 | PN- Housestaff ---
ELINA BARRIENTOS,CORINNE 09/28/16 1017: Subjective Follow-up For: Acute Hypoxic Respiratory Failure COPD Exacerbation NSTEMI Tele-Events Since Last Visit: NSR/ST HR 80-114 Sys BP 122-155 Correa BP 56-78 O2 86-98% RR 19-20% Subjective: Patient seen and examined. He is seen sitting upright in bed resting comfortably maintained on supplemental oxygen via nasal cannula. He appears tired, but in no acute distress. He reports that his shortness of breath is worse than when he was admitted, but that he chest pain that he expierenced overnight has resolved with the "medicine" he was given. Otherwise he feels no better or worse than yesterday and denies any blurred/ double vision, lightheadedness/dizziness, headache, fever, chills, further chest pain/discomfort, nausea, vomiting, diarrhea. Review of Systems Constitutional: Reports: see HPI. Objective Last 24 Hrs of Vital Signs/I&O Vital Signs Date Time Temp Pulse Resp B/P B/P Pulse O2 O2 Flow FiO2 Mean Ox Delivery Rate 09/28 1019 99 134/56 09/28 1019 99 138/56 09/28 0720 93 Nasal 2.0L Cannula 09/28 0541 98.5 112 24 140/80 93 Nasal 2.0L Cannula 09/28 0216 150/70 09/28 0205 Nasal 2.0L Cannula 09/28 0205 Nasal 2.0L Cannula 09/28 0040 97.8 114 24 180/70 95 Nasal 2.0L Cannula 07/ 2358 97.6 118 20 184/82 93 07/ 2301 97.8 120 22 180/80 93 Nasal 2.0L Cannula 09/27 2120 122 180/80 07/ 1706 100 20 150/60 95 Nasal 2.0L Cannula 07/ 1620 95 Nasal 2.0L Cannula 07/ 1600 93 Nasal 2.0L Cannula 07/ 1456 102 164/62 07/03 1444 Nasal 2.0L Cannula 07 1345 Nasal 2.0L Cannula 07/ 1345 98.8 102 20 164/62 93 Nasal 2.0L Cannula 07/03 1304 98.0 109 20 150/60 93 Nasal 2.0L Cannula 07 1158 95 Nasal 2.0L Cannula 07/ 1107 100 20 140/80 93 Nasal 2.0L Cannula 09/27 1039 99.0 101 22 166/66 92 Nasal 2.0L Cannula Intake & Output 09/28 1600 09/28 0800 09/28 0000 Intake Total 280 350 Output Total 750 300 Balance -470 50 Intake, IV 280 150 Intake, Oral 200 Number 0 Bowel Movements Output, Urine 750 300 Patient 87.543 kg Weight Weight Standing Scale Measurement Method Physical Exam General Appearance: Alert, Oriented X3, Cooperative, No Acute Distress Other Physical Findings: General-well developed, well nourished obse middled aged man in no acute distress HEENT-NCAT, PERRL, EOMI, anicteric sclera, nasal cannula in place Neck-Supple, no JVD Cardio-S1, S2 w/o m/g/r; RRR Lung-Diffuse wheezing without crackles Abdomen-Soft, obese, nontender, nondistended, bowel sounds intact Neuro-Awake and alert, CN II - XII grossly intact Ext-normal pulses, no cyanosis/clubbing/edema Current Medications: Current Medications Sig/Carlito Start time Last Medication Dose Route Stop Time Status Admin Acetaminophen 650 MG Q6P PRN 09/27 1215 AC PO Acetaminophen 1,000 MG Q6P PRN 09/27 1215 AC IV Albuterol Sulfate 3 ML EVERY 4 HRS/AWAKE 09/27 1600 AC 09/28 INH 0719 Albuterol Sulfate 3 ML ONCE ONE 09/27 1145 DC 09/27 INH 09/27 1146 1158 Aspirin Buffered 81 MG DAILY 09/27 1000 AC 09/28 PO 1019 Atorvastatin Calcium 20 MG 1700 09/27 1700 AC 09/27 PO 1723 Azithromycin 250 MG DAILY 09/28 1000 AC 09/28 PO 1019 Budesonide/ 2 PUF BID 09/27 2200 CAN Formoterol Fumarate INH Budesonide/ 2 PUF BID 09/27 1000 AC 09/28 Formoterol Fumarate INH 1020 Cholecalciferol 1,000 IU DAILY 09/27 1315 AC 09/28 PO 1019 Clopidogrel Bisulfate 75 MG DAILY 09/27 1000 AC 09/28 PO 1019 Ferrous Sulfate 325 MG DAILY 09/27 1000 AC 09/28 PO 1019 Furosemide 40 MG DAILY 09/27 1000 AC 09/28 PO 1019 Heparin Sodium 2,625 UNIT ONE ONE 09/28 0940 DC 09/28 (Porcine) IV 07/ 0941 0958 Heparin Sodium 25,000 UNIT .STK-MED ONE 09/28 0112 DC (Porcine) IV 09/28 0113 Heparin Sodium 25,000 UNIT Q24H / 2345 AC 09/28 (Porcine) IV 0141 Sodium Chloride 500 ML Heparin Sodium 5,000 UNIT Q8 09/27 2200 DC (Porcine) SC Insulin Aspart 0 Q6 09/28 0039 DC 09/28 SC 0539 Insulin Aspart 0 TIDAC 07/ 1700 DC 07 SC 1820 Insulin Human Regular 0 Q6 07/ 0706 AC SC Ketorolac 15 MG Q8P PRN 07 1300 DC Tromethamine IV Ketorolac 30 MG Q8P PRN 09/27 1215 CAN Tromethamine IV Lorazepam 1 MG ONE ONE 09/28 0200 DC 07 PO 09/28 0201 0151 Lorazepam 1 MG BID PRN 09/27 1315 AC 09/27 PO 2150 Losartan Potassium 50 MG DAILY 09/27 1330 AC 07 PO 1019 Magnesium Sulfate 1 GM ONCE ONE 09/28 0900 AC 07 Dextrose/Water 100 ML IV 07 1259 0950 Magnesium Sulfate 1 GM Q2H 09/27 2130 DC 09/28 Dextrose/Water 100 ML IV 09/28 0129 0106 Methylprednisolone 40 MG Q8 / 2200 AC 09/28 IV 0539 Metolazone 5 MG Q48 09/29 1000 AC PO Metolazone 5 MG DAILY 09/27 1000 DC 09/27 PO 0945 Nebivolol 10 MG DAILY 09/27 1000 AC 09/28 PO 1019 Nitroglycerin 0.5 GM Q6 09/28 0230 AC 09/28 TOP 0536 Nitroglycerin 0.4 MG ONCE ONE 09/27 2345 DC 09/27 SL 09/27 2346 2348 Nitroglycerin 0.4 MG ONCE ONE 09/27 2130 DC 09/27 SL 09/27 2131 2148 Potassium Chloride 20 MEQ DAILY 09/28 1000 AC 07 PO 1019 Potassium Chloride 10 MEQ Q1H 09/27 2200 DC 07 IV 09/27 2301 2337 Potassium Chloride 20 MEQ Q1H 09/27 2130 DC IV 07 2231 Potassium Chloride 40 MEQ 1315 07 1315 DC 07/03 PO 09/27 1316 1452 Tiotropium [place] 1 PUF DAILY 09/28 1000 AC 09/28 INH 1020 Last 24 Hrs of Lab/Leonel Results Last 24 Hrs of Labs/Mics: Laboratory Tests 09/28/16 0740: APTT 53 H 09/28/16 0415: Anion Gap 11, Estimated GFR 41 L, BUN/Creatinine Ratio 24.1, Magnesium 1.7, Troponin I 12.80 *H, CBC w Diff MAN DIFF ORDERED, RBC 4.32 L, MCV 95.8 H, MCH 32.3 H, RDW 14.1, MPV 8.8, Gran % 90.1 H, Lymphocytes % 3.9 L, Monocytes % 6.0, Eosinophils % 0, Basophils % 0 L, Absolute Granulocytes 13.5 H, Absolute Lymphocytes 0.6 L, Absolute Monocytes 0.9 H, Absolute Eosinophils 0, Absolute Basophils 0, Platelet Estimate DECREASED, Polychromasia 1+, PUBS MCHC 33.7 09/27/16 2154: Anion Gap 17 H, Estimated GFR 41 L, BUN/Creatinine Ratio 23.5, Magnesium 1.0 L, Troponin I 0.06 09/27/16 2116: Troponin I Cancelled Microbiology 09/28 0829 LOWER RESP: Respiratory Culture - ORD 09/28 0829 LOWER RESP: Gram Stain - ORD 09/28 0730 UPPER RESP: Surveillance Culture - RECD 09/27 1305 BLOOD: Blood Culture - RECD 09/27 1255 BLOOD: Blood Culture - RECD 09/27 1210 LOWER RESP: Respiratory Culture - COLB 09/27 1210 LOWER RESP: Gram Stain - COLB Assessment/Plan Assessment: 66 year old man with multiple medical problems significant for COPD on 2.0L home oxygen, lung cancer s/p RML resection in 2005, and CAD with AR s/p PCI with LAD stent in 2012 seen for evaluation on 09/27/16 for shortness of breath and cough for one week. Patient was admitted to the general medicine floor for further evaluation and treatment of acute hypoxic respiratory failure secondary to a COPD exacerbation with treatment of supplemental oxygen and intravenous steroids /antibioitcs. Patient reported acute onset left sided 5/10 chest pressure around 7 Pm the night of admission for which he was transfered to the telemetry floor for further monitoring. Cardiology consult was placed and patient was begun on plavix/heparin drip. Second set of troponin was found to be elevated to 12.80 for which he was transfered to the ICU and kept nothing by mouth. Problem List: -Acute Hypoxic Respiratory Failure -COPD Exacerbation -NSTEMI -History of Stage I Lung Cancer s/o RML resection (2005) -CAD/[place] s/p PCI with LAD stent (2012), on dual antiplatelets -Peripheral vascular disease -CKD Stage III -Hypertension -Hyperlipidemia Plan: -ICU -Supplemental oxygen, goal > 92%, taper to 2.0L baseline -TRC with Nebs PRN -Heparin drip -Aspirin/NTG -Plavix discontinued, Ticagrelor loaded -Ativan 1mg PO BID PRN -Continue Losartan/Nebivolol -Continue Atorvastatin -Continue Lasix/Metolazone -Solumedrol 40mg IV decreased to Q12H -Symbicort/Spiriva -Azithromycin 250mg PO Daily -Novolog/Accuchecks TIDAC/HS while eating -Trend troponin/EKG until peak -Cardiology consult -NPO overnight for possible cardiac cath -DVT PPx with Heparin Problem List: 1. Acute on chronic respiratory failure with hypoxia 2. NSTEMI (non-ST elevated myocardial infarction) Pain Ratin Pain Location: None Pain Goal: Pain 4 or less Pain Plan: See assessment Tomorrow's Labs & Rationales: CBC/ICU bundle Consulting Request: Consulting Specialty: Cardiology Consulting Physician: Dr. Hendricks Reason for Consult: elevated troponins AMBAR BARRIENTOS,WES 09/28/16 1421: Attending MD Review Statement Attending Statement Attending MD Statement: examined this patient, discuss w/resident/PA/TEENAGE PROGRAM DIRECTOR, agreed w/resident/PA/TEENAGE PROGRAM DIRECTOR, reviewed EMR data (avail), discussed with nursing Attending Assessment/Plan: Events overnight noted. Patient transferred to the ICU after troponin was rising. He had this episode last night of arm/chest pain that resolved but the troponin was then seen to rise all the way to 12 and now 27. He has no more pain and has been pain-free ever since that one episode and no dynamic EKG changes. He was evaluated by Dr. Hendricks, process development chemist. The plan is to keep him on the IV heparin with aspirin, stop the Plavix and load him with Brillanta and likely cardiac cath in a.m for an acute non-ST elevation AR.. His shortness of breath is about the same and we can decrease the Solu-Medrol safely to 40mg IV every 12 watching closely for his COPD exacerbation. Continue his statin, beta charis. Continue his by mouth azithromycin and follow closely.
--- NOTE | 2016-09-28 11:04 | Cons- Cardiology ---
General Information and HPI Consulting Request Date of Consult: 09/28/16 Requested By: WES VILLALTA MD Reason for Consult: NSTEMI History of Present Illness: The patient is a 66-year-old male with history of lung cancer status post right middle lobe resection, COPD, CAD status post stent to the LAD who presented with complaint of shortness of breath, cough, and wheezing. He was admitted for COPD exacerbation. Overnight, he developed chest discomfort radiating to the left arm. The chest discomfort responded to sublingual nitroglycerin, and resolved after several hours. The patient is now pain-free. He notes intermittent episodes of angina Allergies/Medications Allergies: Coded Allergies: amoxicillin (Severe, TROUBLE BREATHING AND RASH 08/01/15) Penicillins (UNKNOWN 08/01/15) Opioids - Morphine Analogues (SENSITIVITY 08/01/15) Uncoded Allergies: ANTIBIOTIC THAT STARTS WITH AN "A" (UNKNOWN 05/05/12) Home Med List: Aclidinium [place] (Tudorza Pressair) 400 MCG/Actuation MARTIN 400 MCG INH BID BRTH (Reported) Aspirin (Ecotrin) 81 MG TABLET.DR 1 TAB PO DAILY HEART (Reported) Azithromycin 250 MG TABLET 250 MG PO DAILY COPD Cholecalciferol (Vitamin D3) 1,000 IU TAB 1,000 IU PO DAILY VITAMIN D SUPPLEMET (Reported) Clopidogrel Bisulfate (Plavix) 75 MG TABLET 1 TAB PO DAILY HEART (Reported) FERROUS SULFATE (IRON) 325 MG (65 MG IRON) TABLET 1 TAB PO DAILY SUPPLEMENT ( Reported) FLUTICASONE/SALMETEROL (Advair 250-50 Diskus) 250 MCG-50 MCG/DOSE BLST.W.DEV 1 PUF INH BID copd (Reported) Furosemide 40 MG TAB 1 TAB PO DAILY WATER PILL (Reported) Ipratropium [place] (Atrovent Hfa) 17 MCG/ACTUATION HFA.AER.AD 2 PUFF INH Q4 HRS NEEDED PRN SHORTNESS OF BREATH (Reported) Lorazepam (Ativan) 1 MG TABLET 1 TAB PO BID PRN anxiety (Reported) Metolazone 5 MG TABLET 1 TAB PO EOD WATERPILL (Reported) Nebivolol Hydrochloride (Bystolic) 10 MG TAB 1 TAB PO DAILY HEART (Reported) Nitroglycerin (Nitro-Bid) 2 % OINT...G. 0.5 GM TOP Q6 CHEST PAIN Omeprazole 40 MG CAPSULE.DR 1 CAP PO DAILY ACID REFLUX (Reported) POTASSIUM CHLORIDE (KLOR-CON 10mEq TAB) 10 MEQ TABLET.ER 2 TAB PO DAILY SUPPLEMENT (Reported) Rosuvastatin Calcium (Crestor) 20 MG TABLET 1 TAB PO DAILY hld (Reported) Valsartan 320 MG TAB 1 TAB PO DAILY HEART (Reported) Current Medications: Current Medications Sig/Carlito Start time Last Medication Dose Route Stop Time Status Admin Acetaminophen 650 MG Q6P PRN 09/27 1215 AC PO Acetaminophen 1,000 MG Q6P PRN 09/27 1215 AC IV Albuterol Sulfate 3 ML EVERY 4 HRS/AWAKE 09/27 1600 AC 09/28 INH 0719 Albuterol Sulfate 3 ML ONCE ONE 09/27 1145 DC 09/27 INH 09/27 1146 1158 Aspirin Buffered 81 MG DAILY 09/27 1000 AC 09/28 PO 1019 Atorvastatin Calcium 20 MG 1700 09/27 1700 AC 09/27 PO 1723 Azithromycin 250 MG DAILY 09/28 1000 AC 09/28 PO 1019 Budesonide/ 2 PUF BID 09/27 2200 CAN Formoterol Fumarate INH Budesonide/ 2 PUF BID 09/27 1000 AC 09/28 Formoterol Fumarate INH 1020 Cholecalciferol 1,000 IU DAILY 09/27 1315 AC 09/28 PO 1019 Clopidogrel Bisulfate 75 MG DAILY 09/27 1000 AC 09/28 PO 1019 Ferrous Sulfate 325 MG DAILY 09/27 1000 AC 09/28 PO 1019 Furosemide 40 MG DAILY 09/27 1000 AC 09/28 PO 1019 Heparin Sodium 2,625 UNIT ONE ONE 09/28 0940 DC 09/28 (Porcine) IV 09/28 0941 0958 Heparin Sodium 25,000 UNIT .STK-MED ONE / 0112 DC (Porcine) IV 09/28 0113 Heparin Sodium 25,000 UNIT Q24H 09/27 2345 AC 09/28 (Porcine) IV 0141 Sodium Chloride 500 ML Heparin Sodium 5,000 UNIT Q8 09/27 2200 DC (Porcine) SC Insulin Aspart 0 TIDAC 07 1200 AC SC Insulin Aspart 0 Q6 / 0039 DC 09/28 SC 0539 Insulin Aspart 0 TIDAC 09/27 1700 DC 09/27 SC 1820 Insulin Human Regular 0 Q6 09/28 0706 DC SC Ketorolac 15 MG Q8P PRN 09/27 1300 DC Tromethamine IV Ketorolac 30 MG Q8P PRN 09/27 1215 CAN Tromethamine IV Lorazepam 1 MG ONE ONE 09/28 0200 DC 07 PO 09/28 0201 0151 Lorazepam 1 MG BID PRN 09/27 1315 AC 09/27 PO 2150 Losartan Potassium 50 MG DAILY 09/27 1330 AC 09/28 PO 1019 Magnesium Sulfate 1 GM ONCE ONE 09/28 0900 AC 09/28 Dextrose/Water 100 ML IV 09/28 1259 0950 Magnesium Sulfate 1 GM Q2H 09/27 2130 DC 09/28 Dextrose/Water 100 ML IV 09/28 0129 0106 Methylprednisolone 40 MG Q8 09/27 2200 AC 09/28 IV 0539 Metolazone 5 MG Q48 09/29 1000 AC PO Metolazone 5 MG DAILY 09/27 1000 DC 09/27 PO 0945 Nebivolol 10 MG DAILY 09/27 1000 AC 09/28 PO 1019 Nitroglycerin 0.5 GM Q6 09/28 0230 AC 09/28 TOP 0536 Nitroglycerin 0.4 MG ONCE ONE 09/27 2345 DC 09/27 SL 09/27 2346 2348 Nitroglycerin 0.4 MG ONCE ONE 09/27 2130 DC 09/27 SL 09/27 2131 2148 Potassium Chloride 20 MEQ DAILY 09/28 1000 AC 09/28 PO 1019 Potassium Chloride 10 MEQ Q1H 09/27 2200 DC 09/27 IV 09/27 2301 2337 Potassium Chloride 20 MEQ Q1H 09/27 2130 DC IV 09/27 2231 Potassium Chloride 40 MEQ 1315 09/27 1315 DC 09/27 PO 09/27 1316 1452 Tiotropium [place] 1 PUF DAILY 09/28 1000 AC 09/28 INH 1020 Review of Systems Review of Systems: No rash. No tremor. No melena. All other systems were reviewed, and were noted to be negative. 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 Home Who Do You Live With? self Services at Home: Oxygen Primary Language: Peruvian Smoking Status: Former Smoker Living Will? yes Functional Ability ADLs Independent: dressing, eating, toileting, bathing. Ambulation: independent IADLs Independent: shopping, housework, finances, food prep, telephone, transportation , medication admin. Exam & Diagnostic Data Vital Signs and I&O Vital Signs Date Time Temp Pulse Resp B/P B/P Pulse O2 O2 Flow FiO2 Mean Ox Delivery Rate 09/28 1019 99 134/56 09/28 1019 99 138/56 09/28 0720 93 Nasal 2.0L Cannula 09/28 0541 98.5 112 24 140/80 93 Nasal 2.0L Cannula 09/28 0216 150/70 09/28 0205 Nasal 2.0L Cannula 09/28 0205 Nasal 2.0L Cannula 09/28 0040 97.8 114 24 180/70 95 Nasal 2.0L Cannula 09/27 2358 97.6 118 20 184/82 93 07/03 2301 97.8 120 22 180/80 93 Nasal 2.0L Cannula 09/27 2120 122 180/80 / 1706 100 20 150/60 95 Nasal 2.0L Cannula 09/27 1620 95 Nasal 2.0L Cannula 09/27 1600 93 Nasal 2.0L Cannula 09/27 1456 102 164/62 07/ 1444 Nasal 2.0L Cannula 09/27 1345 Nasal 2.0L Cannula 09/27 1345 98.8 102 20 164/62 93 Nasal 2.0L Cannula / 1304 98.0 109 20 150/60 93 Nasal 2.0L Cannula 09/27 1158 95 Nasal 2.0L Cannula 09/27 1107 100 20 140/80 93 Nasal 2.0L Cannula Intake & Output 09/28 1600 /04 0800 /04 0000 09/27 1600 09/27 0800 09/27 0000 Intake Total 280 350 250 Output Total 750 300 850 Balance -470 50 -600 Intake, IV 280 150 250 Intake, Oral 200 Number 0 Bowel Movements Output, Urine 750 300 850 Patient 193 lb 192 lb 192 lb Weight Weight Standing Scale Reported by Patient Measurement Method Physical Exam: Gen: The patient is in no acute distress HEENT: Normal nose, ears, and oropharynx. Pupils equal bilaterally. Conjunctiva normal. Neck: Supple with no JVD, no masses, and no thyromegaly Lungs: Bilateral wheezing with normal respiratory effort Heart: RRR, S1, S2, 1/6 systolic murmur. No peripheral edema, 2+ pulses in the lower extremities bilaterally Abdomen: Soft, nontender, no masses. No hepatomegaly. No splenomegaly Extremities: No clubbing or cyanosis. Normal muscle strength in the upper and lower extremities Skin: Normal skin turgor with no skin ulcers or lesions noted. Neuro: Cranial nerves intact. Sensation intact Psych: Alert and oriented 3 with appropriate affect Labs/Leonel Results: Laboratory Tests 09/28 09/28 09/28 1025 0740 0415 Chemistry Sodium (137 - 145 mmol/L) 140 Potassium (3.5 - 5.1 mmol/L) 3.9 Chloride (98 - 107 mmol/L) 100 Carbon Dioxide (22 - 30 mmol/L) 29 Anion Gap (5 - 16) 11 BUN (9 - 20 mg/dL) 41 H Creatinine (0.7 - 1.2 mg/dL) 1.7 H Estimated GFR (>60 ml/min) 41 L BUN/Creatinine Ratio (7 - 25 %) 24.1 Magnesium (1.6 - 2.3 mg/dL) 1.7 Troponin I (<0.11 ng/ml) Pending 12.80 *H Coagulation APTT (25 - 37 SEC) 53 H Hematology CBC w Diff MAN DIFF ORDERED WBC (4.8 - 10.8 /CUMM) 15.0 H RBC (4.70 - 6.10 /CUMM) 4.32 L Hgb (14.0 - 18.0 G/DL) 13.9 L Hct (42 - 52 %) 41.3 L MCV (80.0 - 94.0 FL) 95.8 H MCH (27.0 - 31.0 PG) 32.3 H RDW (11.5 - 14.5 %) 14.1 Plt Count (130 - 400 /CUMM) 127 L MPV (7.4 - 10.4 FL) 8.8 Gran % (42.2 - 75.2 %) 90.1 H Lymphocytes % (20.5 - 51.1 %) 3.9 L Monocytes % (1.7 - 9.3 %) 6.0 Eosinophils % (0 - 5 %) 0 Basophils % (0.0 - 2.0 %) 0 L Absolute Granulocytes (1.4 - 6.5 /CUMM) 13.5 H Absolute Lymphocytes (1.2 - 3.4 /CUMM) 0.6 L Absolute Monocytes (0.10 - 0.60 /CUMM) 0.9 H Absolute Eosinophils (0.0 - 0.7 /CUMM) 0 Absolute Basophils (0.0 - 0.2 /CUMM) 0 Platelet Estimate (ADEQUATE) DECREASED Polychromasia 1+ PUBS MCHC (33.0 - 37.0 G/DL) 33.7 0709/27 2154 2116 0620 Chemistry Sodium (137 - 145 mmol/L) 135 L 140 Potassium (3.5 - 5.1 mmol/L) 3.7 3.3 L Chloride (98 - 107 mmol/L) 96 L 99 Carbon Dioxide (22 - 30 mmol/L) 22 28 Anion Gap (5 - 16) 17 H 13 BUN (9 - 20 mg/dL) 40 H 39 H Creatinine (0.7 - 1.2 mg/dL) 1.7 H 1.6 H Estimated GFR (>60 ml/min) 41 L 44 L BUN/Creatinine Ratio (7 - 25 %) 23.5 24.4 Glucose (65 - 99 mg/dL) 108 H Calcium (8.4 - 10.2 mg/dL) 9.9 Phosphorus (2.5 - 4.5 mg/dL) 3.1 Magnesium (1.6 - 2.3 mg/dL) 1.0 L 1.2 L Total Bilirubin (0.2 - 1.3 mg/dL) 0.6 AST (17 - 59 U/L) 24 ALT (21 - 72 U/L) 27 Alkaline Phosphatase (< 127 U/L) 57 Troponin I (<0.11 ng/ml) 0.06 Cancelled 0.04 [id number] Pept (<125 pg/mL) 480 H Total Protein (6.3 - 8.2 g/dL) 6.2 L Albumin (3.5 - 5.0 g/dL) 4.0 Globulin (1.9 - 4.2 gm/dL) 2.2 Albumin/Globulin Ratio (1.1 - 2.2 %) 1.8 Coagulation PT (9.4 - 12.5 SEC) 11.5 INR (0.90 - 1.17) 1.10 APTT (25 - 37 SEC) 32 Hematology CBC w Diff NO MAN DIFF REQ WBC (4.8 - 10.8 /CUMM) 12.1 H RBC (4.70 - 6.10 /CUMM) 4.33 L Hgb (14.0 - 18.0 G/DL) 14.0 Hct (42 - 52 %) 41.5 L MCV (80.0 - 94.0 FL) 95.7 H MCH (27.0 - 31.0 PG) 32.3 H RDW (11.5 - 14.5 %) 14.1 Plt Count (130 - 400 /CUMM) 111 L MPV (7.4 - 10.4 FL) 8.3 Gran % (42.2 - 75.2 %) 83.5 H Lymphocytes % (20.5 - 51.1 %) 5.3 L Monocytes % (1.7 - 9.3 %) 9.3 Eosinophils % (0 - 5 %) 1.8 Basophils % (0.0 - 2.0 %) 0.1 Absolute Granulocytes (1.4 - 6.5 /CUMM) 10.1 H Absolute Lymphocytes (1.2 - 3.4 /CUMM) 0.6 L Absolute Monocytes (0.10 - 0.60 /CUMM) 1.1 H Absolute Eosinophils (0.0 - 0.7 /CUMM) 0.2 Absolute Basophils (0.0 - 0.2 /CUMM) 0 PUBS MCHC (33.0 - 37.0 G/DL) 33.7 Diagnostic Data EKG Results EKG tracings are independently reviewed. The EKG from 2126 on 09/27 showed sinus tachycardia at [address] depression. EKG from 1014 today reveals sinus tachycardia at 100 with premature ventricular contractions and no acute ST abnormalities CXR Results Mild increased interstitial lung markings suggesting a mild interstitial edema without overt pulmonary edema. Other Results Echocardiogram 11/26/15: Mild increased interstitial lung markings suggesting a mild interstitial edema without overt pulmonary edema. Assessment/Plan Assessment/Plan Assessment: 1. Lung cancer 2. History of CAD, status post LAD stent 3. COPD exacerbation 4. Acute NSTEMI, likely precipitated by COPD exacerbation 5. Chronic renal insufficiency Plan: * Continue aspirin * Continue Plavix. If further chest discomfort, may consider changing to Brilinta. * Echocardiogram * Continue other cardiac medications * The patient will likely need cardiac catheterization prior to discharge. * Nothing by mouth after midnight Consult Acknowledgment - Thank you for your consult request.
[2016-09-28 12:00] VITALS: BP 130/58
[2016-09-28 16:00] VITALS: BP 130/72
[2016-09-28 17:08] LABS: PTT 93 SEC (25-37)
[2016-09-29] VITALS: BP 140/78
[2016-09-29 01:02] LABS: PTT 63 SEC (25-37)
[2016-09-29 06:14] LABS: ABSOLUTE BASOPHIL COUNT 0 /CUMM (0.0-0.2); ABSOLUTE EOSINOPHIL COUNT 0 /CUMM (0.0-0.7); ABSOLUTE GRANULOCYTE CT 9.9 /CUMM (1.4-6.5); ABSOLUTE LYMPH COUNT 0.3 /CUMM (1.2-3.4); ABSOLUTE MONOCYTE COUNT 0.2 /CUMM (0.10-0.60); BASOPHIL % 0 % (0.0-2.0); EOSINOPHIL % 0 % (0-5); GRANULOCYTE % 95.2 % (42.2-75.2); HEMATOCRIT 39.4 % (42-52); MEAN CORPUSCULAR HGB 32.4 PG (27.0-31.0); MEAN CORPUSCULAR HGB CONC 33.2 G/DL (33.0-37.0); MEAN CORPUSCULAR VOLUME 97.6 FL (80.0-94.0); MEAN PLATELET VOLUME 9.2 FL (7.4-10.4); PLATELET COUNT 117 /CUMM (130-400); RBC DISTRIBUTION WIDTH 14.3 % (11.5-14.5); RED BLOOD CELL CT 4.04 /CUMM (4.70-6.10); WHITE BLOOD CELL COUNT 10.4 /CUMM (4.8-10.8)
--- NOTE | 2016-09-29 07:52 | PN- Housestaff ---
ELINA BARRIENTOS,CORINNE 09/29/16 0752: Subjective Follow-up For: Acute Hypoxic Respiratory Failure COPD Exacerbation NSTEMI Subjective: Patient seen and examined. He is seen sitting upright in bed resting comfortably maintained on supplemental oxygen via nasal cannula. He appears to be in no acute distress. He reports persistent shortness of breath that is no better or worse than yesterday. He denies any further episodes of chest pain. Additionally he denies any headache, fever, chills, palpitations, nausea, vomiting, diarrhea. Review of Systems Constitutional: Reports: see HPI. Objective Last 24 Hrs of Vital Signs/I&O Vital Signs Date Time Temp Pulse Resp B/P B/P Pulse O2 O2 Flow FiO2 Mean Ox Delivery Rate 09/29 0956 94 Nasal 2.0L Cannula 09/29 0906 84 118/55 09/29 0906 84 118/55 09/29 0800 Nasal 2.0L Cannula 09/29 0800 98.8 88 20 124/60 96 Nasal 2.0L Cannula 09/29 0400 92 Nasal 3.0L Cannula 09/29 0000 93 Nasal 2.0L Cannula 09/29 0000 98.3 96 20 140/78 93 Nasal 2.0L Cannula Intake & Output 09/29 1600 09/29 0800 07/05 0000 Intake Total 254 647 Output Total 1000 Balance 254 -353 Intake, IV 154 167 Intake, Oral 100 480 Number 0 Bowel Movements Output, Urine 1000 Physical Exam General Appearance: Alert, Oriented X3, Cooperative, No Acute Distress Other Physical Findings: General-well developed, well nourished obse middled aged man in no acute distress HEENT-NCAT, PERRL, EOMI, anicteric sclera, nasal cannula in place Neck-Supple, no JVD Cardio-S1, S2 w/o m/g/r; RRR Lung-Diffuse wheezing without crackles Abdomen-Soft, obese, nontender, nondistended, bowel sounds intact Neuro-Awake and alert, CN II - XII grossly intact Ext-normal pulses, no cyanosis/clubbing/edema Current Medications: Current Medications Sig/Carlito Start time Last Medication Dose Route Stop Time Status Admin Acetaminophen 650 MG Q6P PRN 09/27 1215 DCD PO Acetaminophen 1,000 MG Q6P PRN 09/27 1215 DCD IV Albuterol Sulfate 3 ML EVERY 4 HRS/AWAKE 09/27 1600 DCD 07 INH 0830 Aspirin Buffered 81 MG DAILY 09/27 1000 DCD 07/ PO 0906 Atorvastatin Calcium 20 MG 1700 07 1700 DCD 07/ PO 1602 Azithromycin 250 MG DAILY 09/28 1000 DCD 07/ PO 0906 Budesonide/ 2 PUF BID 09/27 1000 DCD 07/ Formoterol Fumarate INH 0905 Cholecalciferol 1,000 IU DAILY 09/27 1315 DCD 07/ PO 0905 Ferrous Sulfate 325 MG DAILY 09/27 1000 DCD 07/ PO 0906 Furosemide 40 MG DAILY 09/27 1000 DCD 07/ PO 0906 Heparin Sodium 25,000 UNIT Q24H 09/27 2345 DCD 07 (Porcine) IV 2349 Sodium Chloride 500 ML Insulin Aspart 0 TIDAC 09/28 1200 DC 07 SC 1821 Insulin Human Regular 0 Q6 09/29 0600 DCD 07 SC 0642 Lorazepam 1 MG BID PRN 09/27 1315 DCD 07 PO 2356 Losartan Potassium 50 MG DAILY 09/27 1330 DCD 07 PO 0906 Methylprednisolone 40 MG Q12 09/28 2200 DCD 07 IV 0905 Metolazone 5 MG Q48 09/29 1000 DCD 07/ PO 0906 Nebivolol 10 MG DAILY 09/27 1000 DCD 07 PO 0906 Nitroglycerin 0.5 GM Q6 09/28 0230 DCD 07 TOP 0635 Potassium Chloride 40 MEQ ONCE ONE 09/29 2345 DC PO 09/29 2346 Potassium Chloride 40 MEQ ONCE ONE 09/29 0030 DC 07 PO 07 0031 0023 Potassium Chloride 20 MEQ DAILY 09/28 1000 DCD 07/ PO 0906 Ticagrelor 90 MG BID 09/28 2300 DCD 07 PO 0906 Tiotropium Rosine 1 PUF DAILY 09/28 1000 DCD 09/29 INH 0905 Last 24 Hrs of Lab/Leonel Results Last 24 Hrs of Labs/Mics: Laboratory Tests 09/29/16 1200: APTT Cancelled 09/29/16 0435: Anion Gap 10, Estimated GFR 44 L, Glucose 243 H, Calcium 8.8, Phosphorus 2.9, Magnesium 1.9, Total Bilirubin 0.5, AST 75 H, ALT 39, Troponin I 12.20 *H, Albumin 3.6, CBC w Diff NO MAN DIFF REQ, RBC 4.04 L, MCV 97.6 H, MCH 32.4 H, RDW 14.3, MPV 9.2, Gran % 95.2 H, Lymphocytes % 3.0 L, Monocytes % 1.8, Eosinophils % 0, Basophils % 0 L, Absolute Granulocytes 9.9 H, Absolute Lymphocytes 0.3 L, Absolute Monocytes 0.2, Absolute Eosinophils 0, Absolute Basophils 0, PUBS MCHC 33.2 09/29/16 0010: APTT 63 H Assessment/Plan Assessment: 66 year old man with multiple medical problems significant for COPD on 2.0L home oxygen, lung cancer s/p RML resection in 2005, and CAD with MO s/p PCI with LAD stent in 2012 seen for evaluation on 09/27/16 for shortness of breath and cough for one week. Patient was admitted to the general medicine floor for further evaluation and treatment of acute hypoxic respiratory failure secondary to a COPD exacerbation with treatment of supplemental oxygen and intravenous steroids /antibioitcs. Patient reported acute onset left sided 5/10 chest pressure around 7 Pm the night of admission for which he was transfered to the telemetry floor for further monitoring. Cardiology consult was placed and patient was begun on plavix/heparin drip. Second set of troponin was found to be elevated to 12.80 for which he was transfered to the ICU and kept nothing by mouth. Troponin/EKG were trended until they peaked at 27.20. Patient denied any further chest pain. He was continued on the heparin drip and loaded with Brilinta; plavix was held. Patients primary cardiology evaluated the patient and determined that he would benefit from a cardiac catheterization; patient was counseled extensively about this procedure whom then signed consent. Patients baseline creatinine is elevated to 1.7; he was counseled regarding the potential harm the constrast media may have on his kidneys; he verbalized understanding of these risks. Patient consented to transfer to [facility] for further evaluation and cardiac catheterization. Problem List: -Acute Hypoxic Respiratory Failure -COPD Exacerbation -NSTEMI -History of Stage I Lung Cancer s/o RML resection (2005) -CAD/MO s/p PCI with LAD stent (2012), on dual antiplatelets -Peripheral vascular disease -CKD Stage III -Hypertension -Hyperlipidemia Plan: -ICU -Supplemental oxygen, goal > 92%, taper to 2.0L baseline -TRC with Nebs PRN -Heparin drip -Aspirin/NTG -Plavix discontinued, Ticagrelor loaded -Ativan 1mg PO BID PRN -Continue Losartan/Nebivolol -Continue Atorvastatin -Continue Lasix/Metolazone -Solumedrol 40mg IV decreased to Q12H -Symbicort/Spiriva -Azithromycin 250mg PO Daily -Novolog/Accuchecks TIDAC/HS while eating -Trend troponin/EKG until peak -Cardiology consult -NPO overnight for possible cardiac cath -DVT PPx with Heparin Problem List: 1. Acute on chronic respiratory failure with hypoxia Pain Ratin Pain Location: None Pain Goal: Remain pain free Pain Plan: See assessment Tomorrow's Labs & Rationales: None Consulting Request: Consulting Specialty: Cardiology Consulting Physician: Dr. Hendricks Reason for Consult: elevated troponins AMBAR BARRIENTOS,WES 09/29/16 1430: Attending MD Review Statement Attending Statement Attending MD Statement: examined this patient, discuss w/resident/PA/DIETETICS PROFESSOR, agreed w/resident/PA/DIETETICS PROFESSOR, reviewed EMR data (avail), discussed with nursing, reviewed images Attending Assessment/Plan: Pt continues to be chest pain-free. His only issue is his cough and his shortness of breath. His troponin peaked at 27 and is now down to 12. I spoke to Dr. Nir Davis MD and he is being transferred today for possible cath later today. He is a 66-year-old male with known coronary artery disease, peripheral arterial disease, hypertension, hyperlipidemia, COPD who was admitted with a COPD exacerbation, transiently developed chest pain without EKG changes and no more ongoing episodes of chest pain but a large rise in troponin. We have him on aspirin, brillinta, heparin with a statin, beta charis and arb and outpatient follow-up after cath.
[2016-09-29 08:00] VITALS: BP 124/60
[2016-09-29] MEDS ORDERED: BRILINTA90 M1 PO (08:04)
[2016-09-29] MEDS ORDERED: HEPARIN-D525000 UNIT IV (08:04)
[2016-09-29 09:06] VITALS: BP 118/55
[2016-09-29] MEDS ORDERED: SOLU-MEDRO40 MG/1 ML IV (11:03)
--- NOTE | 2016-09-29 11:34 | PN- Cardiology ---
Subjective Subjective: Patient resting comfortably. On nasal cannula oxygen. No recurrent chest pain. Objective Vital Signs and I&Os Vital Signs Date Time Temp Pulse Resp B/P B/P Pulse O2 O2 Flow FiO2 Mean Ox Delivery Rate 09/29 0956 94 Nasal 2.0L Cannula 09/29 0906 84 118/55 09/29 0906 84 118/55 09/29 0800 Nasal 2.0L Cannula 09/29 0800 98.8 88 20 124/60 96 Nasal 2.0L Cannula 09/29 0400 92 Nasal 3.0L Cannula 09/29 0000 93 Nasal 2.0L Cannula 09/29 0000 98.3 96 20 140/78 93 Nasal 2.0L Cannula 09/28 2030 95 Nasal 2.0L Cannula 09/28 1641 94 Nasal 2.0L Cannula 09/28 1600 Nasal 2.0L Cannula 09/28 1600 97.4 92 22 130/72 92 Nasal 2.0L Cannula 09/28 1200 Nasal 2.0L Cannula 09/28 1200 98.2 103 20 130/58 93 Nasal 2.0L Cannula Intake & Output 09/29 0800 09/29 0000 09/28 1600 09/28 0800 09/28 0000 Intake Total 254 647 914 280 350 Output Total 1000 850 750 300 Balance 254 -353 64 -470 50 Intake, IV 154 167 314 280 150 Intake, Oral 100 480 600 200 Number 0 0 0 Bowel Movements Output, Urine 1000 850 750 300 Patient 193 lb Weight Weight Standing Scale Measurement Method Physical Exam: General: no apparent distress. Alert. Nasal cannula oxygen. Eyes: No obvious scleral icterus. HEENT: No jugular venous distention or abnormal jugular venous pulsations. Cardiovascular: Normal intensity S1/S2. PMI not grossly displaced. Respiratory: No rales or rhonchi Abdomen: Soft, nontender with no guarding or rebound tenderness. Musculoskeletal: No clubbing or cyanosis noted, decreased peripheral pulses Skin: Warm. Neurologic: No gross focal deficits noted. Lymph: No gross lymphadenopathy. Current Medications: Current Medications Sig/Carlito Start time Last Medication Dose Route Stop Time Status Admin Acetaminophen 650 MG Q6P PRN 09/27 1215 AC PO Acetaminophen 1,000 MG Q6P PRN 09/27 1215 AC IV Albuterol Sulfate 3 ML EVERY 4 HRS/AWAKE 09/27 1600 AC 09/29 INH 0830 Aspirin Buffered 81 MG DAILY 09/27 1000 AC 09/29 PO 0906 Atorvastatin Calcium 20 MG 1700 07/ 1700 AC 07 PO 1602 Azithromycin 250 MG DAILY 09/28 1000 AC 09/29 PO 0906 Budesonide/ 2 PUF BID 09/27 1000 AC 07 Formoterol Fumarate INH 0905 Cholecalciferol 1,000 IU DAILY 09/27 1315 AC 09/29 PO 0905 Clopidogrel Bisulfate 75 MG DAILY 09/27 1000 DC 09/28 PO 1019 Ferrous Sulfate 325 MG DAILY 09/27 1000 AC 09/29 PO 0906 Furosemide 40 MG DAILY 09/27 1000 AC 09/29 PO 0906 Heparin Sodium 25,000 UNIT Q24H 09/27 2345 AC 09/28 (Porcine) IV 2349 Sodium Chloride 500 ML Insulin Aspart 0 TIDAC 09/28 1200 DC 09/28 SC 1821 Insulin Human Regular 0 Q6 09/29 0600 AC 09/29 SC 0642 Lorazepam 1 MG BID PRN 09/27 1315 AC 09/28 PO 2356 Losartan Potassium 50 MG DAILY 09/27 1330 AC 09/29 PO 0906 Magnesium Sulfate 1 GM ONCE ONE 09/28 0900 DC 09/28 Dextrose/Water 100 ML IV 09/28 1259 0950 Methylprednisolone 40 MG Q12 09/28 2200 AC 09/29 IV 0905 Methylprednisolone 40 MG Q8 09/27 2200 DC 09/28 IV 0539 Metolazone 5 MG Q48 09/29 1000 AC 09/29 PO 0906 Nebivolol 10 MG DAILY 09/27 1000 AC 09/29 PO 0906 Nitroglycerin 0.5 GM Q6 09/28 0230 AC 09/29 TOP 0635 Potassium Chloride 40 MEQ ONCE ONE 09/29 2345 DC PO 09/29 2346 Potassium Chloride 40 MEQ ONCE ONE 09/29 0030 DC 09/29 PO 09/29 0031 0023 Potassium Chloride 20 MEQ DAILY 09/28 1000 AC 09/29 PO 0906 Ticagrelor 90 MG BID 09/28 2300 AC 09/29 PO 0906 Ticagrelor 180 MG ONCE ONE 09/28 1430 DC 09/28 PO 09/28 1431 1602 Tiotropium [place] 1 PUF DAILY 09/28 1000 AC 09/29 INH 0905 Results Last 48 Hrs of Labs/Mics: Laboratory Tests 09/29/16 0435: Anion Gap 10, Estimated GFR 44 L, Glucose 243 H, Calcium 8.8, Phosphorus 2.9, Magnesium 1.9, Total Bilirubin 0.5, AST 75 H, ALT 39, Troponin I 12.20 *H, Albumin 3.6, CBC w Diff NO MAN DIFF REQ, RBC 4.04 L, MCV 97.6 H, MCH 32.4 H, RDW 14.3, MPV 9.2, Gran % 95.2 H, Lymphocytes % 3.0 L, Monocytes % 1.8, Eosinophils % 0, Basophils % 0 L, Absolute Granulocytes 9.9 H, Absolute Lymphocytes 0.3 L, Absolute Monocytes 0.2, Absolute Eosinophils 0, Absolute Basophils 0, PUBS MCHC 33.2 09/29/16 0010: APTT 63 H 09/28/16 2230: Troponin I 17.30 *H 09/28/16 2230: Anion Gap 14, Estimated GFR 44 L, Glucose 248 H, Calcium 9.3, Phosphorus 2.3 L, Magnesium 2.0, Total Bilirubin 0.5, AST 101 H, ALT 41, Albumin 4.0 09/28/16 1550: Troponin I 26.90 *H, APTT 93 H 09/28/16 1025: Troponin I 27.20 *H 09/28/16 0740: APTT 53 H 09/28/16 0415: Anion Gap 11, Estimated GFR 41 L, BUN/Creatinine Ratio 24.1, Magnesium 1.7, Troponin I 12.80 *H, CBC w Diff MAN DIFF ORDERED, RBC 4.32 L, MCV 95.8 H, MCH 32.3 H, RDW 14.1, MPV 8.8, Gran % 90.1 H, Lymphocytes % 3.9 L, Monocytes % 6.0, Eosinophils % 0, Basophils % 0 L, Absolute Granulocytes 13.5 H, Absolute Lymphocytes 0.6 L, Absolute Monocytes 0.9 H, Absolute Eosinophils 0, Absolute Basophils 0, Platelet Estimate DECREASED, Polychromasia 1+, PUBS MCHC 33.7 09/27/16 2154: Anion Gap 17 H, Estimated GFR 41 L, BUN/Creatinine Ratio 23.5, Magnesium 1.0 L, Troponin I 0.06 09/27/166: Troponin I Cancelled Microbiology 09/28 729 UPPER RESP: Surveillance Culture - COMP Recent Imaging Studies: Telemetry tracings were personally reviewed and shows sinus rhythm with a 4 beat ventricular run CXR 09/27 IMPRESSION: Mild increased interstitial lung markings suggesting a mild interstitial edema without overt pulmonary edema. Assessment/Plan Assessment/Plan 1. Lung cancer with prior resection; on chronic oxygen 2. History of CAD, with prior myocardial infarction, PCI to the left circumflex , known prior RCA occlusion 3. COPD exacerbation 4. Acute NSTEMI, likely precipitated by COPD exacerbation 5. Chronic renal insufficiency 6. History of ischemic cardiomyopathy with mild LV dysfunction 7. History of carotid and peripheral vascular disease Patient remains hemodynamically stable without recurrent chest discomfort. Troponins are down trending. Creatinine is stable. Continue with dual antiplatelet therapy and intravenous heparin. He is being scheduled for transfer to [facility] to undergo cardiac catheterization with possible PCI. Recommend maximal tolerable statin dose. Risks versus benefits of cardiac catheterization including the risk of contrast-induced nephropathy were discussed at length. Benigno Davis MD [facility] Continue telemetry? Yes
--- NOTE | 2016-09-29 13:52 | ECHOCARDIOGRAM REPORT ---
MARY FLORES Age: 66 : 1950 Gender: M Exam Date: 09/29/2016 09:11 Exam Location: [facility] Ht (in): 62 Wt (lb): 192 BSA: 1.99 BP: 140 / 78 Ordering Physician: WINIFRED LOVETT MD Referring Physician: WINIFRED LOVETT MD Technologist: Zaid Morales [facility] Room Number: 105 Indications: Chest Pain Rhythm: Technical Quality: Technically difficult study FINDINGS Left Ventricle Left ventricular cavity size normal. Left ventricular wall thickness mildly increased. Mild inferolateral hypokinesis. Left ventricular ejection fraction is estimated at > 55 %. Abnormal relaxation filling pattern of the left ventricle for age (stage 1 diastolic dysfunction). Right Ventricle Right ventricle not well visualized, grossly normal. Right Atrium Normal right atrial size. Left Atrium Normal left atrial size. Mitral Valve Mild mitral annular calcification. No mitral stenosis. Mild mitral regurgitation. Aortic Valve Trileaflet aortic valve. No aortic stenosis. Tricuspid Valve Structurally normal tricuspid valve. Trace tricuspid regurgitation. Unable to estimate the right ventricular systolic pressure. Pulmonic Valve Pulmonic valve not well visualized, grossly normal. Pericardium No pericardial effusion. Great Vessels Normal size aortic root. CONCLUSIONS Technically difficult study. Left ventricular cavity size normal. Left ventricular wall thickness mildly increased. Mild inferolateral hypokinesis. Left ventricular ejection fraction is estimated at > 55 %. Abnormal relaxation filling pattern of the left ventricle for age (stage 1 diastolic dysfunction). Right ventricle not well visualized, grossly normal. Unable to estimate the right ventricular systolic pressure. No pericardial effusion. Nir Davis M.D. (Electronically Signed) Final Date: 29 September 2016 13:51 MEASUREMENTS (Male / Female) Normal Values 2D ECHO LV Diastolic Diameter PLAX 4.3 cm 4.2 - 5.9 / 3.9 - 5.3 cm LV Systolic Diameter PLAX 2.8 cm 2.1 - 4.0 cm LV Fractional Shortening PLAX 34.9 % 25 - 46 % LV Ejection Fraction 2D Teich 64.4 % IVS Diastolic Thickness 1.4 cm LVPW Diastolic Thickness 1.3 cm LV Relative Wall Thickness 0.6 RV Internal Dim ED PLAX 3.5 cm 1.9 - 3.8 cm LVOT Diameter 1.9 cm Aortic Root Diameter 2.3 cm LA Systolic Diameter LX 3.6 cm 3.0 - 4.0 / 2.7 - 3.8 cm Ascending Aorta Diameter 2.4 cm DOPPLER AV Peak Velocity 167.0 cm/s AV Peak Gradient 11.2 mmHg AV Mean Velocity 107.0 cm/s AV Mean Gradient 5.0 mmHg AV Velocity Time Integral 35.5 cm LVOT Peak Velocity 123.0 cm/s LVOT Peak Gradient 6.1 mmHg LVOT Mean Velocity 74.8 cm/s LVOT Mean Gradient 3.0 mmHg LVOT Velocity Time Integral 27.9 cm LVOT Stroke Volume 79.1 cm AV Area Cont Eq vti 2.2 cm AV Area Cont Eq pk 2.1 cm MV Peak Velocity 178.0 cm/s MV Peak Gradient 12.7 mmHg MV Mean Velocity 97.6 cm/s MV Mean Gradient 5.0 mmHg Mitral E Point Velocity 120.0 cm/s Mitral A Point Velocity 171.0 cm/s Mitral E to A Ratio 0.7 MV PHT Velocity 129.0 cm/s MV Deceleration [place] 552.0 cm/s MV Pressure Half Time 70.1 ms MV Area PHT 3.1 cm MV Deceleration Time 236.0 ms MR Peak Velocity 546.0 cm/s MR Peak Gradient 119.2 mmHg PV Peak Velocity 121.0 cm/s PV Peak Gradient 5.9 mmHg PV Mean Velocity 85.7 cm/s PV Mean Gradient 3.0 mmHg PV Velocity Time Integral 28.9 cm LV E' Lateral Velocity 9.0 cm/s Mitral E to LV E' Lateral Ratio 13.4 LV E' Septal Velocity 7.1 cm/s Mitral E to LV E' Septal Ratio 16.9
== END 2016-09-29 12:15 | disposition short-term general hospital (02) | DRG 189 ==
LOC: ERH 05:47 → CRI 12:17 → 2NB 12:17 → ERHI 12:17 → ENRESERV 12:52 → ENTRNSPT 13:11 → EDTRNSPTSTS 13:35 → 2NB 13:39 → CRI 13:39 → CMPTRNSPT 13:46 → 1NO 09-28 00:22 → CRI 09-28 06:42
PROVIDERS: Emergency Medicine; Internal Medicine Critical Care Medicine; Internal Medicine Interventional Cardiology; Student in an Organized Health Care Education/Training Program; ADMIT Internal Medicine
DX: J96.21 Acute and chronic respiratory failure with hypoxia (principal); I21.4 Non-ST elevation (NSTEMI) myocardial infarction; I13.0 Hypertensive heart and chronic kidney disease with heart failure and stage 1 through stage 4 chronic kidney disease, or unspecified chronic kidney disease; I50.32 Chronic diastolic (congestive) heart failure; E09.22 Drug or chemical induced diabetes mellitus with diabetic chronic kidney disease; J44.1 Chronic obstructive pulmonary disease with (acute) exacerbation; Z99.81 Dependence on supplemental oxygen; N18.3 Chronic kidney disease, stage 3 (moderate); J44.9 Chronic obstructive pulmonary disease, unspecified; I25.10 Atherosclerotic heart disease of native coronary artery without angina pectoris; I25.2 Old myocardial infarction; I34.1 Nonrheumatic mitral (valve) prolapse; I73.9 Peripheral vascular disease, unspecified; T38.0X5S Adverse effect of glucocorticoids and synthetic analogues, sequela; E78.5 Hyperlipidemia, unspecified; B18.2 Chronic viral hepatitis C; G50.0 Trigeminal neuralgia; I25.5 Ischemic cardiomyopathy; E87.6 Hypokalemia; K21.9 Gastro-esophageal reflux disease without esophagitis; Z85.118 Personal history of other malignant neoplasm of bronchus and lung
CPT/HCPCS: 2NBSP; CCU; 36415; 82436; 87040; 87070; 93005; 93010; 93306; J0456; J0696; J1644; J1815; J1885; J2920; J2930; J3490; J7040

== ENCOUNTER 2017-05-24 05:13 | Inpatient (IN) | payer OTHER ==
[~2017-05-24] VITALS: Ht 160 cm; Wt 72.1 kg
[~2017-05-24 05:13] MED LIST changes: -ADVAIR DISKUS 21 DSK INH; -ASPIR 8181 MG PO; +ASPIRIN EC81 M1 PO; +ATROVENT HFA12.9 GM INH; +AZITHROMYCIN250 M1 PO; +BRILINTA90 M1 PO; +CARVEDILOL25 M1 PO; -CRESTOR20 M2 PO; +CRESTOR40 M2 PO; +DILAUDID2 M1 PO; +DIOVAN80 M1 PO; +FERROUS SULFAT325 M3 PO; +FUROSEMIDE40 M1 PO; -FUROSEMIDE40 MG PO; +HEPARIN-D525000 UNIT IV; +ISOSORBIDE MONO30 M1 PO; -KLOR-CON 10MEQ10 MEQ PO; +KLOR-CON M2020 ME1 PO; +MEDROL4 M2 PO; -NATURAL IRON65 MG PO; +NITRO-BID1 GM TOP; +OMEPRAZOLE40 M1 PO; +PROAIR HFA8.5 GM INH; +SOLU-MEDRO40 MG/1 ML IV; +TUDORZA PRESS400 MCG PO; -VALSARTAN320 MG PO; -VITAMIN D1000 IU PO; +VITAMIN D31000 UNI2 PO
--- NOTE | 2017-05-24 05:18 | ED DYSPNEA/ASTHMA COMPLAINT ---
See Addendum History of Present Illness General Chief Complaint: Dyspnea (COPD, CHF, Other) Stated Complaint: SOB Source: patient, old records, EMS Exam Limitations: no limitations Vital Signs & Intake/Output Vital Signs & Intake/Output Vital Signs Date Time Temp Pulse Resp B/P B/P Pulse O2 O2 Flow FiO2 Mean Ox Delivery Rate 05/24 0531 101/58 05/24 0617 107 24 96/50 100 CPAP 60% 05/24 0610 92/50 05/24 0603 78/52 05/24 0551 100 BIPAP 60% 05/24 0550 111 24 97/54 100 BIPAP 60% 05/24 0542 112 99 05/24 0530 130/70 05/24 0516 99.5 124 16 168/85 92 CPAP 100% 05/24 0515 118 100 Allergies Coded Allergies: amoxicillin (Severe, TROUBLE BREATHING AND RASH 08/01/15) Penicillins (UNKNOWN 08/01/15) Opioids - Morphine Analogues (SENSITIVITY 08/01/15) Uncoded Allergies: ANTIBIOTIC THAT STARTS WITH AN "A" (UNKNOWN 05/05/12) Reconcile Medications Aclidinium [place] (Tudorza Pressair) 400 MCG/ACTUATION AER.POW.BA 1 PUFF PO BID BREATHING PROBLEMS (Reported) Albuterol Sulfate (Proair Hfa) 90 MCG HFA.AER.AD 2 PUF INH Q4-6 PRN PRN SHORTNESS OF BREATH (Reported) Aspirin (Ecotrin*) 81 MG TABLET.DR 1 TAB PO DAILY HEART HEALTH (Reported) Carvedilol 12.5 MG TABLET 1 TAB PO BID HEART (Reported) Cholecalciferol (Vitamin D3) 1,000 UNIT TABLET 1 TAB PO DAILY VITAMIN SUPPORT (Reported) Ferrous Sulfate 325 MG (65 MG IRON) TABLET 1 TAB PO DAILY SUPPLEMENT ( Reported) Fluticasone/Salmeterol (Advair 250-50 Diskus) 250 MCG-50 MCG/DOSE BLST.W.DEV 1 PUF INH BID BREATHING PROBLEMS (Reported) Isosorbide Mononitrate (Isosorbide Mononitrate ER) 30 MG TAB.ER.24H 1 TAB PO DAILY HEART (Reported) LORazepam (Ativan) 1 MG TABLET 1 TAB PO BID PRN anxiety (Reported) Nitroglycerin (Nitro-Bid) 2 % OINT...G. 0.5 GM TOP Q6 CHEST PAIN Omeprazole 40 MG CAPSULE. 1 CAP PO DAILY ACID REFLUX (Reported) Ondansetron (Zofran Odt) 4 MG TAB.RAPDIS 1 TAB SL TID PRN NAUSEA Potassium Chloride (Klor-Con M20) 20 MEQ TAB.ER.PRT 2 TAB PO BID SUPPLEMENT ( Reported) Rosuvastatin Calcium (Crestor) 20 MG TABLET 1 TAB PO DAILY hld (Reported) Ticagrelor (Brilinta) 90 MG TABLET 90 MG PO BID CAD Valsartan (Diovan) 40 MG TABLET 1 TAB PO DAILY HEART (Reported) Triage Nurses Notes Reviewed? yes HPI: Patient was rolled from sleep with sudden onset of orthopnea and difficulty breathing. Patient is on chronic O2. His initial saturation on 4 L nasal cannula upon EMS arrival was 72%. Patient had rales in all lang. Patient has been intubated for pulmonary edema in the past. Patient was started on BiPAP and given 8 sublingual nitros as well as 2 inches of paste. Patient states that he is feeling slightly better however he still acutely short of breath. He denies any chest pain or chest tightness. No fevers or chills. There've been no cough. Past History Travel History Traveled to [place] past 21 day No Medical History Any Pertinent Medical History? 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 No Review of Systems Review of Systems Constitutional: Reports: no symptoms. EENTM: Reports: no symptoms. Respiratory: Reports: see HPI, short of breath. Cardiovascular: Reports: no symptoms. GI: Reports: no symptoms. Genitourinary: Reports: no symptoms. Musculoskeletal: Reports: no symptoms. Skin: Reports: no symptoms. Neurological/Psychological: Reports: no symptoms. Hematologic/Endocrine: Reports: no symptoms. Immunologic/Allergic: Reports: no symptoms. All Other Systems: Reviewed and Negative Physical Exam Physical Exam General Appearance: well developed/nourished, alert, awake, anxious, severe distress Head: atraumatic Eyes: Bilateral: PERRL, EOMI. Ears, Nose, Throat: normal pharynx, normal ENT inspection, hearing grossly normal Neck: supple, JVD Respiratory: rales (ALL LANG), respiratory distress Cardiovascular: normal peripheral pulses, tachycardia Gastrointestinal: normal bowel sounds, soft, non-tender, no organomegaly Extremities: normal inspection, normal capillary refill, normal range of motion, pedal edema Neurologic/Psych: no motor/sensory deficits, awake, alert, oriented x 3, normal mood/affect Skin: diaphoresis Lymphatic: no anterior cervical magnolia Core Measures ACS in differential dx? Yes CVA/TIA Diagnosis No Sepsis Present: No Sepsis Focused Exam Completed? No Progress Differential Diagnosis: AMI, CHF, pulmonary embolism, pneumonia, pneumothorax Plan of Care: Orders Procedure Date/time Status BIPAP 05/24 0544 Complete BLOOD CULTURE 05/24 0536 Active EKG 05/24 0521 Active ARTERIAL BLOOD GAS (GEN) 05/24 0520 Complete Telemetry/Textile Engineer 05/24 0520 Active URINALYSIS 05/24 0520 Complete TROPONIN LEVEL 05/24 0520 Complete COMPREHENSIVE METABOLIC PANEL 05/24 0520 Complete CBC WITHOUT DIFFERENTIAL 05/24 0520 Complete B-TYPE NATRIURETIC PEP (BNP) 05/24 0520 Complete BIPAP 05/24 0515 Complete Current Medications Sig/Carlito Start time Last Medication Dose Stop Time Status Admin Sodium Chloride 250 ML BOLUS ONE 05/24 0615 AC 05/24 (Normal Saline 0.9%) 05/24 0714 0617 Laboratory Tests 05/24/17 0556: Urinalysis MOD H, Urine Color YEL, Urine Clarity HAZY H, Urine pH 6.5, Ur Specific [place] 1.025, Urine Protein 100 H, Urine Ketones NEG, Urine Nitrite NEG, Urine Bilirubin NEG, Urine Urobilinogen 1.0, Ur Leukocyte Esterase NEG, Ur Microscopic SEDIMENT EXAMINED, Urine RBC 3-5, Urine WBC 1-3 H, Ur Epithelial Cells FEW, Urine Bacteria RARE H, Granular Casts 3-5 H, Urine Mucus RARE, Urine Hemoglobin SMALL H, Urine Glucose NEG 05/24/17 0530: Anion Gap 14, Estimated GFR 38 L, BUN/Creatinine Ratio 15.6, Glucose 157 H, Calcium 9.7, Total Bilirubin 0.8, AST 26, ALT 24, Alkaline Phosphatase 69, Troponin I 0.08, Lcq-O-Vfsujgkiyaf Pept 2400 H, Total Protein 5.9 L, Albumin 3.8, Globulin 2.1, Albumin/Globulin Ratio 1.8, CBC w Diff NO MAN DIFF REQ, RBC 4.53 L, MCV 95.7 H, MCH 31.5 H, MCHC 32.9 L, RDW 14.2, MPV 8.9, Gran % 82.4 H, Lymphocytes % 6.4 L, Monocytes % 8.1, Eosinophils % 3.0, Basophils % 0.1, Absolute Granulocytes 5.2, Absolute Lymphocytes 0.4 L, Absolute Monocytes 0.5, Absolute Eosinophils 0.2, Absolute Basophils 0 05/24/17 0520: pH 7.33 L, pCO2 44, pO2 251 H, HCO3 23, ABG O2 Sat (Measured) 98.0, P-50 (Temp Corrected) Y, Carboxyhemoglobin 0.9 L, O2 Concentration % 100%, Temperature 99.5, Respiration Rate 24, O2 Delivery Method VISION-FFM, Vent Mode ST, Expiratory Pressure 6, Inspiratory Pressure 18, Phlebotomy Draw Site LEFT RADIAL Microbiology 05/24 539 BLOOD: Blood Culture - RECD 05/24 529 BLOOD: Blood Culture - RECD Diagnostic Imaging: Viewed by Me: Radiology Read. Discussed w/RAD: Radiology Read. CXR Impression: PATIENT: MARY FLORES PRESENT AGE: 67 PATIENT ACCOUNT NO: [id number] : 51 LOCATION: [facility] ORDERING PHYSICIAN: Herman Contreras MD SERVICE DATE: 05/24/17 EXAM TYPE: RAD - XRY- PORTABLE CHEST XRAY EXAMINATION: XR PORTABLE CHEST CLINICAL INFORMATION: Shortness of breath COMPARISON: 09/27/2016 TECHNIQUE: Portable frontal view of the chest was obtained. FINDINGS: Cardiac lead overlies the chest. Lung volumes are low. There is a right mid to lower lung airspace opacity. Retrocardiac opacity. No pneumothorax. The cardiomediastinal silhouette is unchanged, with a calcified aorta. IMPRESSION: Multifocal airspace opacities at the right mid to lower lung and left base. Considerations include multifocal pneumonia versus alveolar edema. DICTATED BY: Jersey Christian MD DATE/TIME DICTATED:05/24/17553 EXECUTIVE ADMINISTRATOR:CRESENCIO DATE/TIME TRANSCRIBED:05/24/17553 CONFIDENTIAL, DO NOT COPY WITHOUT APPROPRIATE AUTHORIZATION. <Electronically signed in Other Vendor System> SIGNED BY: Jersey Christian MD 05/24/1777 Initial ED EKG: ST, IVCD, NSSTT CHANGES, NO CHANGE FROM PRIOR Prior EKG: unchanged Rhythm Strip: sinus tachycardia Hand-Off Endorsed To: Duglas Garza MD Endorsed Time: 0700 Pending: other (CONSULT) Comments: Patient's blood pressure dropped. The nitro paste has been removed. Patient is much more comfortable. There is no diaphoresis. He is speaking in complete sentences. Patient transiently dropped his blood pressure to 78/60. Patient received 200 mL of normal saline and his blood pressure came back up. D/W DR. DE LA GARZA: PT TO BE SEEN BY DR. EID WILL SEE HIM FIRST THING THIS MORNING TO DETERMINE IF HE NEEDS TO GO TO THE [facility] OR IF HE CAN BE ADMITTED HERE. Departure Departure Disposition: STILL A PATIENT Condition: Stable Clinical Impression Primary Impression: Pulmonary edema Referrals: Rayray BARRIENTOS,Nacho Maldonado (PCP/Family) Departure Forms: Customer Survey General Discharge Information Critical Care Note Critical Care Note Critical Care Time: mins: (120 MIN)
[2017-05-24 05:54] LABS: ABSOLUTE BASOPHIL COUNT 0 /CUMM (0.0-0.2); ABSOLUTE EOSINOPHIL COUNT 0.2 /CUMM (0.0-0.7); ABSOLUTE GRANULOCYTE CT 5.2 /CUMM (1.4-6.5); ABSOLUTE LYMPH COUNT 0.4 /CUMM (1.2-3.4); ABSOLUTE MONOCYTE COUNT 0.5 /CUMM (0.10-0.60); BASOPHIL % 0.1 % (0.0-2.0); GRANULOCYTE % 82.4 % (42.2-75.2); HEMATOCRIT 43.4 % (42-52); MEAN CORPUSCULAR HGB 31.5 PG (27.0-31.0); MEAN CORPUSCULAR HGB CONC 32.9 G/DL (33.0-37.0); MEAN CORPUSCULAR VOLUME 95.7 FL (80.0-94.0); MEAN PLATELET VOLUME 8.9 FL (7.4-10.4); PLATELET COUNT 135 /CUMM (130-400); RBC DISTRIBUTION WIDTH 14.2 % (11.5-14.5); RED BLOOD CELL CT 4.53 /CUMM (4.70-6.10); WHITE BLOOD CELL COUNT 6.3 /CUMM (4.8-10.8)
--- NOTE | 2017-05-24 05:58 | RADIOLOGY REPORT ---
EXAMINATION: XR PORTABLE CHEST CLINICAL INFORMATION: Shortness of breath COMPARISON: 09/27/2016 TECHNIQUE: Portable frontal view of the chest was obtained. FINDINGS: Cardiac lead overlies the chest. Lung volumes are low. There is a right mid to lower lung airspace opacity. Retrocardiac opacity. No pneumothorax. The cardiomediastinal silhouette is unchanged, with a calcified aorta. IMPRESSION: Multifocal airspace opacities at the right mid to lower lung and left base. Considerations include multifocal pneumonia versus alveolar edema.
[2017-05-24] MEDS ORDERED: FUROSEMIDE40 M1 PO (08:39)
--- NOTE | 2017-05-24 10:49 | Cons- Cardiology ---
General Information and HPI Consulting Request Date of Consult: 05/24/17 Requested By: Napoleon Coe MD Reason for Consult: Congestive heart failure Source of Information: patient Exam Limitations: no limitations History of Present Illness: The patient is a 67-year-old male with a known history of COPD on home O2, hypertension, hyperlipidemia, peripheral arterial disease, and coronary artery disease status post PCI to the circumflex November 2013, DUNIA to the LAD September 2016, and repeat catheterization 03/11/2017 with PCI to the LAD with a drug- eluting stent, his right coronary artery is chronically occluded and fills by collateral, nonflow limiting disease of the circumflex and ramus. Echocardiogram performed 12/27/2016 demonstrated ejection fraction of 55%. Patient states he had been feeling well until this morning when he awoke in the middle of the night acutely short of breath with chills. She did have a similar episode a few weeks ago but the symptoms resolved quickly. This morning they persisted and therefore EMS was summoned. He was found to be hypoxic with rales. He was treated with SL [id number] along with nitropaste. He was treated with Lasix and placed on BiPAP. He denied chest discomfort. Allergies/Medications Allergies: Coded Allergies: amoxicillin (Severe, TROUBLE BREATHING AND RASH 08/01/15) Penicillins (UNKNOWN 08/01/15) Opioids - Morphine Analogues (SENSITIVITY 08/01/15) Uncoded Allergies: ANTIBIOTIC THAT STARTS WITH AN "A" (UNKNOWN 05/05/12) Home Med List: Aclidinium [place] (Tudorza Pressair) 400 MCG/ACTUATION AER.POW.BA 1 PUFF PO BID BREATHING PROBLEMS (Reported) Albuterol Sulfate (Proair Hfa) 90 MCG HFA.AER.AD 2 PUF INH Q4-6 PRN PRN SHORTNESS OF BREATH (Reported) Aspirin (Ecotrin*) 81 MG TABLET.DR 1 TAB PO DAILY HEART HEALTH (Reported) Carvedilol 25 MG TABLET 1 TAB PO BID HEART (Reported) Cholecalciferol (Vitamin D3) 1,000 UNIT TABLET 1 TAB PO DAILY VITAMIN SUPPORT (Reported) Ferrous Sulfate 325 MG (65 MG IRON) TABLET 1 TAB PO DAILY SUPPLEMENT ( Reported) Fluticasone/Salmeterol (Advair 250-50 Diskus) 250 MCG-50 MCG/DOSE BLST.W.DEV 1 PUF INH BID BREATHING PROBLEMS (Reported) Furosemide 40 MG TABLET 1 TAB PO DAILY WATER RETENTION (Reported) Isosorbide Mononitrate (Isosorbide Mononitrate ER) 30 MG TAB.ER.24H 1 TAB PO DAILY HEART (Reported) LORazepam (Ativan) 1 MG TABLET 1 TAB PO BID PRN anxiety (Reported) Omeprazole 40 MG CAPSULE.DR 1 CAP PO DAILY ACID REFLUX (Reported) Ondansetron (Zofran Odt) 4 MG TAB.RAPDIS 1 TAB SL TID PRN NAUSEA Potassium Chloride (Klor-Con M20) 20 MEQ TAB.ER.PRT 1 TAB PO BID SUPPLEMENT ( Reported) Rosuvastatin Calcium (Crestor) 40 MG TABLET 1 TAB PO DAILY CHOLESTEROL ( Reported) Ticagrelor (Brilinta) 90 MG TABLET 90 MG PO BID CAD Valsartan (Diovan) 80 MG TABLET 1 TAB PO DAILY HEART (Reported) Current Medications: Current Medications Sig/Carlito Start time Last Medication Dose Route Stop Time Status Admin Furosemide 80 MG ONCE ONE 05/24 529 DC 05/24 IV 05/24 0431 0529 Furosemide 0 .STK-MED ONE 05/24 0428 DC IV Sodium Chloride 250 ML BOLUS ONE 05/24 0515 DC 05/24 IV 05/24 0714 0617 Review of Systems Review of Systems: Eyes no blurred or double vision Ears no deafness or ringing Nose and throat no recurrent sinusitis Lungs per history of present illness Heart per history of present illness Abdomen no nausea vomiting Musculoskeletal occasional muscle and joint pains Psych no anxiety or depression Neuro without recurrent headache or seizures Endocrine no heat or cold intolerance Past History Travel History Traveled to [place] past 21 day No Medical History Neurological: BLE NEUROPATHY TRIGEMINAL NEURALGIA EENT: NONE Cardiovascular: CAD, diastolic CHF, hypertension, hyperlipidemia, myocardial infarction, NSTEMI, PVD Respiratory: bronchitis, COPD, LUNG CANCER 2006 Gastrointestinal: GERD Hepatic: cholelithiasis, hepatitis C Renal: chronic kidney disease, STAGE 3 Musculoskeletal: chronic back pain, osteoarthritis, DEGENERATIVE DISK D/O Psychiatric: anxiety Endocrine: STEROID INDUCED DM Blood Disorders: NONE Cancer(s): lung cancer [employer]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 self Services at Home: Oxygen Primary Language: Thai ETOH Use: denies use Illicit Drug Use: denies illicit drug use Living Will? yes Functional Ability ADLs Independent: dressing, eating, toileting, bathing. Ambulation: independent IADLs Independent: shopping, housework, finances, food prep, telephone, transportation , medication admin. Exam & Diagnostic Data Vital Signs and I&O Vital Signs Date Time Temp Pulse Resp B/P B/P Pulse O2 O2 Flow FiO2 Mean Ox Delivery Rate 05/24 0941 98.4 93 22 128/60 95 Nasal 2.0L Cannula 05/24 0850 98 20 127/55 95 Nasal 2.0L Cannula 05/24 0830 89 100 05/24 0817 98.0 90 20 101/58 100 BIPAP 05/24 0712 99.7 95 24 118/55 100 BIPAP 05/24 0645 110/55 05/24 0631 101/58 05/24 0617 107 24 96/50 100 CPAP 60% 05/24 0610 92/50 05/24 0603 78/52 05/24 0551 100 BIPAP 60% 05/24 0550 111 24 97/54 100 BIPAP 60% 05/24 0542 112 99 05/24 0530 130/70 05/24 0516 99.5 124 16 168/85 92 CPAP 100% 05/24 0515 118 100 Intake & Output 05/24 1600 05/24 0800 05/24 0000 05/23 1600 05/23 0800 05/23 0000 Intake Total Output Total 225 430 Balance -225 -430 Output, Urine 225 430 Patient 200 lb Weight Weight Reported by Patient Measurement Method Physical Exam: Patient is a well-developed well-nourished male appearing in moderate respiratory distress on BiPAP HEENT is unremarkable Neck is supple there is no JVD Lungs Rales bilaterally Heart regular rhythm S1 and S2 are normal no murmurs gallops or rubs Abdomen bowel sounds positive Extremities 2+ edema Labs/Leonel Results: Laboratory Tests 05/24 05/24 0556 0530 Chemistry Sodium (137 - 145 mmol/L) 143 Potassium (3.5 - 5.1 mmol/L) 4.4 Chloride (98 - 107 mmol/L) 104 Carbon Dioxide (22 - 30 mmol/L) 26 Anion Gap (5 - 16) 14 BUN (9 - 20 mg/dL) 28 H Creatinine (0.7 - 1.2 mg/dL) 1.8 H Estimated GFR (>60 ml/min) 38 L BUN/Creatinine Ratio (7 - 25 %) 15.6 Glucose (65 - 99 mg/dL) 157 H Calcium (8.4 - 10.2 mg/dL) 9.7 Total Bilirubin (0.2 - 1.3 mg/dL) 0.8 AST (17 - 59 U/L) 26 ALT (21 - 72 U/L) 24 Alkaline Phosphatase (< 127 U/L) 69 Troponin I (<0.11 ng/ml) 0.08 [id number] Pept (<125 pg/mL) 2400 H Total Protein (6.3 - 8.2 g/dL) 5.9 L Albumin (3.5 - 5.0 g/dL) 3.8 Globulin (1.9 - 4.2 gm/dL) 2.1 Albumin/Globulin Ratio (1.1 - 2.2 %) 1.8 Hematology CBC w Diff NO MAN DIFF REQ WBC (4.8 - 10.8 /CUMM) 6.3 RBC (4.70 - 6.10 /CUMM) 4.53 L Hgb (14.0 - 18.0 G/DL) 14.3 Hct (42 - 52 %) 43.4 MCV (80.0 - 94.0 FL) 95.7 H MCH (27.0 - 31.0 PG) 31.5 H MCHC (33.0 - 37.0 G/DL) 32.9 L RDW (11.5 - 14.5 %) 14.2 Plt Count (130 - 400 /CUMM) 135 MPV (7.4 - 10.4 FL) 8.9 Gran % (42.2 - 75.2 %) 82.4 H Lymphocytes % (20.5 - 51.1 %) 6.4 L Monocytes % (1.7 - 9.3 %) 8.1 Eosinophils % (0 - 5 %) 3.0 Basophils % (0.0 - 2.0 %) 0.1 Absolute Granulocytes (1.4 - 6.5 /CUMM) 5.2 Absolute Lymphocytes (1.2 - 3.4 /CUMM) 0.4 L Absolute Monocytes (0.10 - 0.60 /CUMM) 0.5 Absolute Eosinophils (0.0 - 0.7 /CUMM) 0.2 Absolute Basophils (0.0 - 0.2 /CUMM) 0 Urines Urinalysis MOD H Urine Color (YEL,AMB,STR) YEL Urine Clarity (CLEAR) HAZY H Urine pH (5.0 - 8.0) 6.5 Ur Specific [place] (1.001 - 1.035) 1.025 Urine Protein (NEG,<30 MG/DL) 100 H Urine Ketones (NEG) NEG Urine Nitrite (NEG) NEG Urine Bilirubin (NEG) NEG Urine Urobilinogen (0.1 - 1.0 EU/dl) 1.0 Ur Leukocyte Esterase (NEG) NEG Ur Microscopic SEDIMENT EXAMINED Urine RBC (0 - 5 /HPF) 3-5 Urine WBC (0 - 2 /HPF) 1-3 H Ur Epithelial Cells (NONE,FEW) FEW Urine Bacteria (NEG/NONE) RARE H Granular Casts (NONE /LPF) 3-5 H Urine Mucus (FEW,NONE) RARE Urine Hemoglobin (NEG) SMALL H Urine Glucose (N MG/DL) NEG 05/24 0520 Blood Gas pH (7.35 - 7.45 PH) 7.33 L pCO2 (35 - 45 TORR) 44 pO2 (80 - 100 TORR) 251 H HCO3 (21 - 28 MEQ/L) 23 ABG O2 Sat (Measured) (>96.0 %) 98.0 P-50 (Temp Corrected) Y Carboxyhemoglobin (1.5 - 5.0 %) 0.9 L O2 Concentration % 100% Temperature (97.0 - 100.0 FARH) 99.5 Respiration Rate (BPM) 24 O2 Delivery Method VISION-FFM Vent Mode ST Expiratory Pressure (CM H2O P) 6 Inspiratory Pressure (CM H2O P) 18 Miscellaneous Phlebotomy Draw Site LEFT RADIAL Diagnostic Data EKG Results Sinus rhythm lateral infarct age undetermined nonspecific T-wave changes CXR Results IMPRESSION: Multifocal airspace opacities at the right mid to lower lung and left base. Considerations include multifocal pneumonia versus alveolar edema. Assessment/Plan Assessment/Plan 1. Coronary disease as noted above with PCI to the circumflex November 2013, DUNIA to the LAD is September 2016 and DUNIA to the LAD in February 2017. Initial troponin is negative and there are no acute EKG changes suggestive of an acute infarct 2. Acute diastolic heart failure with an elevated BNP. EF of 55% 2016 3. COPD 4. Chronic renal insufficiency 5. Hyperlipidemia 6. Hypertension 7. Carcinoma lung status post lobectomy Recommendations 1. Patient will be admitted to telemetry to trend further troponins 2. Would repeat an echocardiogram to reassess his LV function. 3. Wean patient off BiPAP and placed on nasal cannula as tolerated 4. Diuresis monitoring renal function closely 5. There is no indication for acute coronary intervention at present. Further consideration will be made depending upon patient's course and blood work. 6. Continue outpatient valsartan, carvedilol, Imdur, Crestor, and Brilinta Thank you for allowing [facility] to participate in the care of your patient. Copies To: Rayray BARRIENTOS,Nacho Maldonado; Susan BARRIENTOS,Nir Consult Acknowledgment - Thank you for your consult request.
--- NOTE | 2017-05-24 10:57 | History & Physical ---
Uli Marroquin 05/24/17 1056: General Information and HPI MD Statement: I have seen and personally examined MARY FLORES and documented this H&P. The patient is a 67 year old M who presented with a patient stated chief complaint of acute shortness of breath early this morning. Source of Information: patient Exam Limitations: no limitations History of Present Illness: This is a 67-year-old male with past medical history significant for COPD on home oxygen 2 L, extensive cardiac history, coronary artery disease status post PCI to the circumflex November 2013, DUNIA to the LAD September 2016, and repeat catheterization 03/11/2017 with PCI to the LAD with a drug-eluting stent, his right coronary artery is chronically occluded and fills by collateral, nonflow limiting disease of the circumflex and ramus, Echocardiogram performed 02/2017 demonstrated ejection fraction of 55%. Inferolateral hypokinesis, stage I diastolic dysfunction, hypertension, hyperlipidemia, GERD, steroid-induced diabetes mellitus, chronic back pain, osteoarthritis, degenerative disc disease, stage III chronic kidney disease, mitral valve prolapse, ischemic cardiomyopathy and diastolic CHF, PVD was brought in by ambulance for evaluation of acute onset of shortness of breath and chills early this morning. Patient reports sudden onset of shortness of breath and chills this morning which woke him up in the middle of sleep early this morning. He uses 2 L oxygen at baseline for COPD. He increased his oxygen up to 4 L with no relief. He tried using his inhalers with minimal relief. EMS was called. He was found to be hypoxic 75% with the rales. He was given nitroglycerinx8 along with Nitropaste. He was brought in by ambulance to the emergency room. In the emergency room he received IV Lasix 80 mg, he was placed on BiPAP because of worsening saturations. Also his blood pressure droped to 70/40, responded with 250 mL bolus. On further questioning patient reports sudden onset of shortness of breath and chills this morning. He states that he had similar episode a few weeks back, resolved spontaneously. He denied any chest pain, palpitations, fever, productive cough. Denies any nausea, vomiting, abdomen pain, change in bladder or bowel habits. He reports bilateral lower extremity swelling, taking Lasix daily, complicated with medication. Denies any recent weight changes. Denies taking extra salt. He follows up with Nir Davis MD closely for heart disease. He denies any smoking, alcohol abuse, illicit drug abuse. Allergies/Medications Allergies: Coded Allergies: amoxicillin (Severe, TROUBLE BREATHING AND RASH 08/01/15) Penicillins (UNKNOWN 08/01/15) Opioids - Morphine Analogues (SENSITIVITY 08/01/15) Uncoded Allergies: ANTIBIOTIC THAT STARTS WITH AN "A" (UNKNOWN 05/05/12) Home Med list Aclidinium [place] (Tudorza Pressair) 400 MCG/ACTUATION AER.POW.BA 1 PUFF PO BID BREATHING PROBLEMS (Reported) Albuterol Sulfate (Proair Hfa) 90 MCG HFA.AER.AD 2 PUF INH Q4-6 PRN PRN SHORTNESS OF BREATH (Reported) Aspirin (Ecotrin*) 81 MG TABLET.DR 1 TAB PO DAILY HEART HEALTH (Reported) Carvedilol 25 MG TABLET 1 TAB PO BID HEART (Reported) Cholecalciferol (Vitamin D3) 1,000 UNIT TABLET 1 TAB PO DAILY VITAMIN SUPPORT (Reported) Ferrous Sulfate 325 MG (65 MG IRON) TABLET 1 TAB PO DAILY SUPPLEMENT ( Reported) Fluticasone/Salmeterol (Advair 250-50 Diskus) 250 MCG-50 MCG/DOSE BLST.W.DEV 1 PUF INH BID BREATHING PROBLEMS (Reported) Furosemide 40 MG TABLET 1 TAB PO DAILY WATER RETENTION (Reported) Isosorbide Mononitrate (Isosorbide Mononitrate ER) 30 MG TAB.ER.24H 1 TAB PO DAILY HEART (Reported) LORazepam (Ativan) 1 MG TABLET 1 TAB PO BID PRN anxiety (Reported) Omeprazole 40 MG CAPSULE.DR 1 CAP PO DAILY ACID REFLUX (Reported) Ondansetron (Zofran Odt) 4 MG TAB.RAPDIS 1 TAB SL TID PRN NAUSEA Potassium Chloride (Klor-Con M20) 20 MEQ TAB.ER.PRT 1 TAB PO BID SUPPLEMENT ( Reported) Rosuvastatin Calcium (Crestor) 40 MG TABLET 1 TAB PO DAILY CHOLESTEROL ( Reported) Ticagrelor (Brilinta) 90 MG TABLET 90 MG PO BID CAD Valsartan (Diovan) 80 MG TABLET 1 TAB PO DAILY HEART (Reported) Compliance With Home Meds: GOOD Past History Travel History Traveled to [place] past 21 day No Medical History Neurological: BLE NEUROPATHY TRIGEMINAL NEURALGIA EENT: NONE Cardiovascular: CAD, diastolic CHF, hypertension, hyperlipidemia, myocardial infarction, NSTEMI, PVD Respiratory: bronchitis, COPD, LUNG CANCER 2006 Gastrointestinal: GERD Hepatic: cholelithiasis, hepatitis C Renal: chronic kidney disease, STAGE 3 Musculoskeletal: chronic back pain, osteoarthritis, DEGENERATIVE DISK D/O Psychiatric: anxiety Endocrine: STEROID INDUCED DM Blood Disorders: NONE Cancer(s): lung cancer ALLIED HEALTH INSTRUCTOR/Reproductive: NONE History of MRSA: No History of VRE: No History of CDIFF: No Influenza Vaccine: 11/26/16 Surgical History Surgical History: fasciotomy for L calf compartment syndrome,b/l carotid endarterectomy, angioplasty of coronary artery and femoral artery b/l CARDIAC STENT PLACEMENT Past Family/Social History Family History Relations & Conditions if any FATHER Coronary artery disease MOTHER Coronary artery disease Psychosocial History Who Do You Live With? self Services at Home: Oxygen Primary Language: Sudanese ETOH Use: denies use Illicit Drug Use: denies illicit drug use Living Will? yes Functional Ability ADLs Independent: dressing, eating, toileting, bathing. Ambulation: independent IADLs Independent: shopping, housework, finances, food prep, telephone, transportation , medication admin. Review of Systems Review of Systems Constitutional: Reports: chills. Denies: diaphoresis, fever, malaise, weakness, unexplained weight loss. EENTM: Denies: blurred vision, double vision, visual changes. Cardiovascular: Reports: peripheral edema. Denies: chest pain, edema, orthopena, palpitations, syncope. Respiratory: Reports: short of breath. Denies: cough, hemoptysis, orthopnea, sputum production, stridor, wheezing. GI: Denies: abdominal pain, bloating, constipation, diarrhea, nausea, bloody stool, vomiting. Genitourinary: Denies: discharge, dysuria, frequency. Musculoskeletal: Reports: back pain. Denies: gout, joint pain. Neurological/Psychological: Denies: anxiety, ataxia, confusion, depressed. Exam & Diagnostic Data Last 24 Hrs of Vital Signs/I&O Vital Signs Date Time Temp Pulse Resp B/P B/P Pulse O2 O2 Flow FiO2 Mean Ox Delivery Rate 05/24 1240 98.2 92 20 134/78 05/24 1126 98.2 92 20 119/63 95 Nasal 2.0L Cannula 05/24 0941 98.4 93 22 128/60 95 Nasal 2.0L Cannula 05/24 0850 98 20 127/55 95 Nasal 2.0L Cannula 05/24 0830 89 100 05/24 0817 98.0 90 20 101/58 100 BIPAP 05/24 0712 99.7 95 24 118/55 100 BIPAP 05/24 0645 110/55 05/24 0631 101/58 05/24 0617 107 24 96/50 100 CPAP 60% 05/24 0610 92/50 05/24 0603 78/52 05/24 0551 100 BIPAP 60% 05/24 0550 111 24 97/54 100 BIPAP 60% 05/24 0542 112 99 05/24 0530 130/70 05/24 0516 99.5 124 16 168/85 92 CPAP 100% 05/24 0515 118 100 Intake & Output 05/24 1600 05/24 0800 05/24 0000 Intake Total Output Total 450 430 Balance -450 -430 Output, Urine 450 430 Patient 90.718 kg Weight Weight Reported by Patient Measurement Method Physical Exam General Appearance Alert, Oriented X3, Cooperative, No Acute Distress Skin No Rashes, No Breakdown Skin Temp/Moisture Exam: Warm/Dry Sepsis Skin Exam (color): Normal for Ethnicity HEENT Atraumatic, PERRLA, EOMI, Mucous Membr. moist/pink Neck Supple, No JVD Lymphatic Cervical nl Cardiovascular Regular Rate, Normal S1, Normal S2 Lungs Normal Air Movement, b/l rales / crackles Abdomen Normal Bowel Sounds, Soft, No Tenderness Extremities No Clubbing, No Cyanosis, Normal Pulses, No Tenderness/Swelling, +1 pitting edema Vascular Normal Pulses, Pulses Symmetrical Sepsis Peripheral Pulse Location: Radial Sepsis Peripheral Pulse Exam: Normal Sepsis Cap Refill Exam: <2 Sec Last 24 Hrs of Labs/Leonel: Laboratory Tests 05/24/17 1200: Troponin I Pending 05/24/17 0556: Urinalysis MOD H, Urine Color YEL, Urine Clarity HAZY H, Urine pH 6.5, Ur Specific Britton 1.025, Urine Protein 100 H, Urine Ketones NEG, Urine Nitrite NEG, Urine Bilirubin NEG, Urine Urobilinogen 1.0, Ur Leukocyte Esterase NEG, Ur Microscopic SEDIMENT EXAMINED, Urine RBC 3-5, Urine WBC 1-3 H, Ur Epithelial Cells FEW, Urine Bacteria RARE H, Granular Casts 3-5 H, Urine Mucus RARE, Urine Hemoglobin SMALL H, Urine Glucose NEG 05/24/17 0530: Anion Gap 14, Estimated GFR 38 L, BUN/Creatinine Ratio 15.6, Glucose 157 H, Calcium 9.7, Total Bilirubin 0.8, AST 26, ALT 24, Alkaline Phosphatase 69, Troponin I 0.08, [id number] Pept 2400 H, Total Protein 5.9 L, Albumin 3.8, Globulin 2.1, Albumin/Globulin Ratio 1.8, CBC w Diff NO MAN DIFF REQ, RBC 4.53 L, MCV 95.7 H, MCH 31.5 H, MCHC 32.9 L, RDW 14.2, MPV 8.9, Gran % 82.4 H, Lymphocytes % 6.4 L, Monocytes % 8.1, Eosinophils % 3.0, Basophils % 0.1, Absolute Granulocytes 5.2, Absolute Lymphocytes 0.4 L, Absolute Monocytes 0.5, Absolute Eosinophils 0.2, Absolute Basophils 0 05/24/17 0520: pH 7.33 L, pCO2 44, pO2 251 H, HCO3 23, ABG O2 Sat (Measured) 98.0, P-50 (Temp Corrected) Y, Carboxyhemoglobin 0.9 L, O2 Concentration % 100%, Temperature 99.5, Respiration Rate 24, O2 Delivery Method VISION-FFM, Vent Mode ST, Expiratory Pressure 6, Inspiratory Pressure 18, Phlebotomy Draw Site LEFT RADIAL Microbiology 05/24 539 BLOOD: Blood Culture - RECD 05/24 529 BLOOD: Blood Culture - RECD Diagnostic Data EKG Results Sinus rhythm lateral infarct age undetermined nonspecific T-wave changes CXR Results IMPRESSION: Multifocal airspace opacities at the right mid to lower lung and left base. Considerations include multifocal pneumonia versus alveolar edema. Assessment/Plan Assessment: This is a 67-year-old male with past medical history significant for COPD on home oxygen 2 L, extensive cardiac history, coronary artery disease status post PCI to the circumflex November 2013, DUNIA to the LAD September 2016, and repeat catheterization 03/11/2017 with PCI to the LAD with a drug-eluting stent, his right coronary artery is chronically occluded and fills by collateral, nonflow limiting disease of the circumflex and ramus, Echocardiogram performed 02/2017 demonstrated ejection fraction of 55%. Inferolateral hypokinesis, stage I diastolic dysfunction, hypertension, hyperlipidemia, GERD, steroid-induced diabetes mellitus, chronic back pain, osteoarthritis, degenerative disc disease, stage III chronic kidney disease, mitral valve prolapse, ischemic cardiomyopathy and diastolic CHF, JONY was brought in by ambulance for evaluation of acute onset of shortness of breath and chills early this morning. Vitals at the time of admission afebrile, sinus tachycardia 110, respiratory rate 24, blood pressure 118/60, saturating at 95 on 2 L. Saturations improved after placing on BiPAP. CBCs within normal limits BUN 20, creatinine 1.8 ProBNP 2400 ABG 7.33, 23, 44 lft nl Troponin negative Chest x-ray showed Multifocal airspace opacities at the right mid to lower lung and left base. Considerations include multifocal pneumonia versus alveolar edema. EKG Results Sinus rhythm lateral infarct age undetermined nonspecific T-wave changes 1. Acute on chronic diastolic heart failure Patient presented with acute worsening shortness of breath, hypoxia, tachycardia. Patient desaturated up to 75 requiring BiPAP placement. He is hemodynamically stable. ProBNP elevated 2400. Chest x-ray findings suggestive of heart failure. Echocardiogram in February 2017 showed stage I diastolic dysfunction with inferolateral hypokinesis. * Patient will be admitted to telemetry for management of CHF. * Monitor vitals every shift. * Continuous telemetry monitoring. * serial troponin and EKG given his extensive cardiac history. * Patient usually takes Lasix 40 mg orally daily. * He received 80 mg IV in ER. Will start him IV lasix 40 from tomorrow. * Monitor ins and outs * monitor daily weights * monitor daily BUN and creatinine while on Lasix. * Follow-up cardiology Recommendations 2. CAD STATUS post stent placement coronary artery disease status post PCI to the circumflex November 2013, DUNIA to the LAD September 2016, and repeat catheterization 03/11/2017 with PCI to the LAD with a drug-eluting stent, his right coronary artery is chronically occluded and fills by collateral, nonflow limiting disease of the circumflex and ramus, Echocardiogram performed 02/2017 demonstrated ejection fraction of 55%. Inferolateral hypokinesis, stage I diastolic dysfunction. * Continue aspirin 81 daily * Continue brilinta 90 twice daily * Continue carvedilol 25 twice daily * Continue isosorbide 30 mg daily * Nitroglycerin patch if required for chest pain 3. Chronic kidney disease Creatinine 1.8. Baseline creatinine varies between 1.6-2. 4. COPD-continue home oxygen 2 L, TRC, inhaler treatments 5. Hypertension please hold valsartan for now given borderline blood pressure 6. Hyperlipidemia continue atorvastatin 40 daily 7. GERD continue omeprazole Full code DVT prophylaxis subcutaneous heparin Heart healthy diet As Ranked By This Provider Problem List: 1. Acute on chronic respiratory failure with hypoxia Core Measures/Misc (12/12) Acute Coronary Syndrome ACS Diagnosis: No Congestive Heart Failure Congestive Heart Failure Diagnosis No Cerebrovascular Accident CVA/TIA Diagnosis: No VTE (View Protocol) VTE Risk Factors Acute Medical Illness No Mechanical VTE Prophylaxis d/t N/A MechProphylax Ordered No VTE Pharm Prophylaxis d/t NA PharmProphylax ordered Sepsis (View protocol) Sepsis Present: No Napoleon Coe MD 05/24/17 1434: Attending MD Review Statement Attending Statement Attending MD Statement: examined this patient, discuss w/resident/PA/METAL MODEL BUILDER, agreed w/resident/PA/METAL MODEL BUILDER, discussed with family, reviewed EMR data (avail), discussed with nursing, amended to note Attending Assessment/Plan: Patient seen and examined. I reviewed and agree with the history and physical as well as assessment and plan as documented by the resident above. Patient is a pleasant 61-year-old male with history of coronary artery disease who presents with sudden onset of shortness of breath. he presented to the emergency room in acute on chronic hypoxic respiratory failure requiring BiPAP therapy transiently. He made significant improvement following diuresis in the ER and is currently maintaining saturation on nasal cannula. Imaging studies on admission consistent with volume overload. Sudden onset of symptoms raises concern for flash pulmonary edema. On examination he does not appear to be in any acute distress. Heart sounds are regular. He has diminished breath sounds in bilateral lung bases. He has trace peripheral edema right lower extremity compared to left. He gives a history of chronic right lower extremity swelling secondary to gout. Recommendations: -Admit to the inpatient medical service. - Place on telemetry monitoring. Trend cardiac enzymes. Obtain echocardiogram. -In view of his underlying renal dysfunction will avoid overtly aggressive diuresis. He has improved significantly following a total of 80 mg of Lasix in the ER. Will monitor patient off diuretic therapy for now. -Patient became hypotensive in the emergency room her blood pressure in the 70s following diuresis. He required volume resuscitation. Blood pressure is now stable in the low 100s. -Recommend holding his antihypertensive medications for now. We will also hold off further diuresis for now unless patient becomes symptomatic at which case we can try a dose of Lasix. -DVT prophylaxis with subcutaneous heparin.
--- NOTE | 2017-05-24 14:39 | Admission Certification ---
Admission Certification Certification Statement - As attending physician, I certify that at the time of - admission, based on clinical presentation, severity of - symptoms, need for further diagnostic testing and - therapeutic interventions, and risk of adverse outcomes - without in-hospital treatment, in my clinical assessment, - this patient requires an acute hospital stay for a minimum - of two nights or longer. I have also considered psychsocial - factors such as support system, advanced age, financial - issues, cognitive issues, and failed out-patient treatments, - past re-admission history, safety of patient, and lack of - compliance as applicable. Specific rationale supporting this admission is: Patient is being hospitalized for management of acute on chronic hypoxic respiratory failure.
[2017-05-24 16:10] VITALS: BP 114/62
[2017-05-24 22:25] VITALS: BP 112/68
[2017-05-25 07:20] VITALS: BP 118/68
[2017-05-25 08:22] LABS: ABSOLUTE BASOPHIL COUNT 0 /CUMM (0.0-0.2); ABSOLUTE EOSINOPHIL COUNT 0.1 /CUMM (0.0-0.7); ABSOLUTE GRANULOCYTE CT 4.8 /CUMM (1.4-6.5); ABSOLUTE LYMPH COUNT 0.5 /CUMM (1.2-3.4); ABSOLUTE MONOCYTE COUNT 0.7 /CUMM (0.10-0.60); BASOPHIL % 0.2 % (0.0-2.0); MEAN CORPUSCULAR HGB 32.4 PG (27.0-31.0); MEAN CORPUSCULAR VOLUME 95.3 FL (80.0-94.0); MEAN PLATELET VOLUME 9.4 FL (7.4-10.4); RBC DISTRIBUTION WIDTH 14.4 % (11.5-14.5); RED BLOOD CELL CT 3.72 /CUMM (4.70-6.10); WHITE BLOOD CELL COUNT 6.2 /CUMM (4.8-10.8)
--- NOTE | 2017-05-25 10:29 | PN- Housestaff ---
Albert Mustafa 05/25/17 1019: Subjective Follow-up For: 1. Coronary disease as noted above with PCI to the circumflex November 2013, DUNIA to the LAD is September 2016 and DUNIA to the LAD in February 2017. 2. Acute diastolic heart failure with an elevated BNP. EF of 55% 2016 3. COPD Complaints: no complaints Subjective: Reports better breathing. No chest pain. No overnight events. Troponins trending down. Reports disturbed sleep overnight, requests extra dose of Ativan. No other complaints. Review of Systems Constitutional: Reports: see HPI. Objective Last 24 Hrs of Vital Signs/I&O Vital Signs Date Time Temp Pulse Resp B/P B/P Pulse O2 O2 Flow FiO2 Mean Ox Delivery Rate 05/25 0902 88 118/68 05/25 0902 88 118/05/25 0720 98.0 88 18 118/68 95 Nasal Cannula 05/25 0000 Nasal 2.0L Cannula 05/24 2225 98.0 84 18 112/68 94 Nasal 2.0L Cannula 05/24 2149 84 112/68 05/24 2102 Nasal 2.0L Cannula 05/24 1610 98.8 92 18 114/62 92 Nasal 2.0L Cannula 05/24 1603 92 Nasal 2.0L Cannula 05/24 1505 99.5 87 18 103/58 96 Nasal 2.0L Cannula 05/24 1305 98.0 88 20 112/59 96 Nasal 2.0L Cannula 05/24 1240 98.2 92 20 134/78 05/24 1126 98.2 92 20 119/63 95 Nasal 2.0L Cannula Intake & Output 05/25 1600 05/25 0800 05/25 0000 Intake Total 220 600 Output Total 600 550 Balance -380 50 Intake, Oral 220 600 Output, Urine 600 550 Patient 165 lb 167 lb Weight Weight Bed scale Bed scale Measurement Method Physical Exam General Appearance: Alert, Oriented X3, Cooperative, No Acute Distress HEENT: Atraumatic Neck: Supple, No JVD Cardiovascular: Regular Rate, Normal S1, Normal S2 Lungs: Clear to Auscultation, Normal Air Movement Abdomen: Normal Bowel Sounds, Soft, No Tenderness Extremities: No Clubbing, No Cyanosis, Trace edema Current Medications: Current Medications Sig/Carlito Start time Last Medication Dose Route Stop Time Status Admin Acetaminophen 650 MG Q6P PRN 05/24 1100 AC 05/25 PO 0901 Albuterol Sulfate 2 PUF Q4P PRN 05/24 2130 AC 05/25 INH 0903 Albuterol Sulfate 2 PUF Q4-6 PRN PRN 05/24 1200 DC INH Aspirin Buffered 81 MG DAILY 05/24 1154 AC 05/25 PO 0901 Atorvastatin Calcium 40 MG 1700 05/24 1700 AC 05/24 PO 1637 Carvedilol 25 MG BID 05/24 2200 AC 05/25 PO 0902 Cholecalciferol 1,000 IU DAILY 05/24 1154 AC 05/25 PO 0901 Ferrous Sulfate 325 MG DAILY 05/25 1000 AC 05/25 PO 0901 Fluticasone 2 PUF BID 05/24 2200 AC Propionate INH Furosemide 40 MG DAILY 05/25 1000 AC 05/25 IV 0900 Heparin Sodium 0 .STK-MED ONE 05/24 1410 DC (Porcine) .ROUTE Heparin Sodium 5,000 UNIT Q8 05/24 1400 AC 05/25 (Porcine) SC 0650 Isosorbide 30 MG DAILY 05/24 1155 AC 05/25 Mononitrate PO 0902 Lorazepam 0.5 MG ONE ONE 05/25 1015 DC PO 05/25 1016 Lorazepam 1 MG BID PRN 05/24 1200 AC 05/25 PO 0400 Omeprazole 0 .STK-MED ONE 05/24 1241 DC PO Omeprazole 40 MG DAILY AC 05/24 1155 AC 05/25 PO 0651 Potassium Chloride 20 MEQ BID 05/24 2200 AC 05/25 PO 0901 Ticagrelor 90 MG BID 05/24 1156 AC 05/25 PO 0901 Last 24 Hrs of Lab/Leonel Results Last 24 Hrs of Labs/Mics: Laboratory Tests 05/25/17 0625: Anion Gap 11, Estimated GFR 41 L, BUN/Creatinine Ratio 16.5, CBC w Diff Pending , WBC Pending, RBC Pending, Hgb Pending, Hct Pending, MCV Pending, MCH Pending, MCHC Pending, RDW Pending, Plt Count Pending, MPV Pending 05/24/17 1807: Troponin I 0.75 *H 05/24/17 1200: Troponin I 0.84 *H Assessment/Plan Assessment: 67-year-old gentleman with coronary artery disease status post 3 stents, most recent February 2017, presented with sudden onset shortness of breath requiring BiPAP transiently and intravenous furosemide with subsequent improvement in his breathing symptoms. 1. Acute diastolic heart failure. No chest pain. No acute EKG changes. Troponins trending down, peaked at 0.88. Reviewed echocardiogram to assess LV function. Continue diuresis. Stable renal function. Continue current meds. Will restart valsartan today. 2. COPD. Off BiPAP. TRC nebs. 3. Hypertension/hyperlipidemia. Continue current meds. Problem List: 1. CAD Pain Ratin Pain Location: Legs Pain Goal: Remain pain free Pain Plan: PRN Tomorrow's Labs & Rationales: Troponin BEP (Kidney Function) Saravanan BARRIENTOS,Napoleon 05/25/17 1400: Attending MD Review Statement Attending Statement Attending MD Statement: examined this patient, discuss w/resident/PA/PROGRESS DEVELOPER, agreed w/resident/PA/PROGRESS DEVELOPER, reviewed EMR data (avail), discussed with nursing, discussed with case mgmt, amended to note Attending Assessment/Plan: Patient seen and examined. Resting comfortably not in acute distress reports feeling better compared to presentation. No issues overnight on telemetry monitoring. Hemodynamically stable this morning. Was negative about 1500 cc yesterday. On examination he has no jugular venous distention. Heart sounds are regular. Lungs are clear bilaterally. Bilateral lower extremity edema has improved. Cardiac enzymes are also trending downwards. We will continue diuresis with Lasix 40 mg IV daily. We will continue to hold his antihypertensive medications for now. Will monitor blood pressure closely as well as input output/daily weight. Anticipate transition patient to oral diuretics in the next 24-48 hours.
[2017-05-25 10:37] LABS: HEMATOCRIT 35.5 % (42-52)
[2017-05-25 10:38] LABS: PLATELET COUNT 102 /CUMM (130-400)
--- NOTE | 2017-05-25 11:10 | PN- Cardiology ---
Subjective Subjective: The patient is awake, alert, states continued dyspnea The events of the last 24 hours as well as telemetry were reviewed. Review of Systems: The review of systems is negative for chest pains, palpitations nor lightheadedness. The remainder of the 14 point review of systems is noncontributory with the exception of above. Objective Vital Signs and I&Os Vital Signs Date Time Temp Pulse Resp B/P B/P Pulse O2 O2 Flow FiO2 Mean Ox Delivery Rate 05/25 0902 88 118/05/25 0902 88 118/05/25 0720 98.0 88 18 118 95 Nasal Cannula 05/25 0000 Nasal 2.0L Cannula 05/24 2225 98.0 84 18 112 94 Nasal 2.0L Cannula 05/24 2149 84 112/68 05/24 2102 Nasal 2.0L Cannula 05/24 1610 98.8 92 18 114/62 92 Nasal 2.0L Cannula 05/24 1603 92 Nasal 2.0L Cannula 05/24 1505 99.5 87 18 103/58 96 Nasal 2.0L Cannula 05/24 1305 98.0 88 20 112/59 96 Nasal 2.0L Cannula 05/24 1240 98.2 92 20 134/78 05/24 1126 98.2 92 20 119/63 95 Nasal 2.0L Cannula Intake & Output 05/25 1600 05/25 0800 05/25 0000 05/24 1600 05/24 0800 05/24 0000 Intake Total 220 600 Output Total 891 486 5449 430 Balance -380 50 -1050 -430 Intake, Oral 220 600 Output, Urine 447 378 5064 430 Patient 165 lb 167 lb 200 lb Weight Weight Bed scale Bed scale Reported by Patient Measurement Method Physical Exam: General: Nontoxic, no apparent distress. HEENT: Sclera and conjunctiva within normal limits, without xanthelasmas. Neck: Carotids 2+ without bruits. Respiratory: Clear to auscultation, air movement is decreased throughout, without accessory respiratory muscle use. Heart: Regular rate and rhythm, without murmurs, without JVD. Abdomen: Soft, nontender, no masses, normoactive bowel sounds. Extremities: Without clubbing, cyanosis, without edema. Neuro: Nonfocal exam, strength, 5 out of 5 Skin: Within normal limits without lesions. Psych: Mood and affect: Normal Current Medications: Current Medications Sig/Carlito Start time Last Medication Dose Route Stop Time Status Admin Acetaminophen 650 MG Q6P PRN 05/24 1100 AC 05/25 PO 0901 Albuterol Sulfate 2 PUF Q4P PRN 05/24 2130 AC 05/25 INH 0903 Albuterol Sulfate 2 PUF Q4-6 PRN PRN 05/24 1200 DC INH Aspirin Buffered 81 MG DAILY 05/24 1154 AC 05/25 PO 0901 Atorvastatin Calcium 40 MG 1700 05/24 1700 AC 05/24 PO 1637 Carvedilol 25 MG BID 05/24 2200 AC 05/25 PO 0902 Cholecalciferol 1,000 IU DAILY 05/24 1154 AC 05/25 PO 0901 Ferrous Sulfate 325 MG DAILY 05/25 1000 AC 05/25 PO 0901 Fluticasone 2 PUF BID 05/24 2200 AC Propionate INH Furosemide 40 MG DAILY 05/25 1000 AC 05/25 IV 0900 Heparin Sodium 0 .STK-MED ONE 05/24 1410 DC (Porcine) .ROUTE Heparin Sodium 5,000 UNIT Q8 05/24 1400 AC 05/25 (Porcine) SC 0650 Isosorbide 30 MG DAILY 05/24 1155 AC 05/25 Mononitrate PO 0902 Lorazepam 0.5 MG ONE ONE 05/25 1015 DC 05/25 PO 05/25 1016 1025 Lorazepam 1 MG BID PRN 05/24 1200 AC 05/25 PO 0400 Losartan Potassium 25 MG DAILY 05/26 1000 AC PO Omeprazole 0 .STK-MED ONE 05/24 1241 DC PO Omeprazole 40 MG DAILY AC 05/24 1155 AC 05/25 PO 0651 Potassium Chloride 20 MEQ BID 05/24 2200 AC 05/25 PO 0901 Ticagrelor 90 MG BID 05/24 1156 AC 05/25 PO 0901 Results Last 48 Hrs of Labs/Mics: Laboratory Tests 05/25/17 0625: Anion Gap 11, Estimated GFR 41 L, BUN/Creatinine Ratio 16.5, CBC w Diff MAN DIFF ORDERED, RBC 3.72 L, MCV 95.3 H, MCH 32.4 H, MCHC 34.0, RDW 14.4, MPV 9.4, Gran % 78.0 H, Lymphocytes % 8.8 L, Monocytes % 12.0 H, Eosinophils % 1.0, Basophils % 0.2, Absolute Granulocytes 4.8, Segmented Neutrophils 73, Band Neutrophils 7 H, Absolute Lymphocytes 0.5 L, Lymphocytes 6 L, Monocytes 13 H , Absolute Monocytes 0.7 H, Eosinophils 1, Absolute Eosinophils 0.1, Absolute Basophils 0, Normocytic RBCs VERIFIED, Normochromic RBCs VERIFIED 05/24/17 1807: Troponin I 0.75 *H 05/24/17 1200: Troponin I 0.84 *H 05/24/17 0556: Urinalysis MOD H, Urine Color YEL, Urine Clarity HAZY H, Urine pH 6.5, Ur Specific [place] 1.025, Urine Protein 100 H, Urine Ketones NEG, Urine Nitrite NEG, Urine Bilirubin NEG, Urine Urobilinogen 1.0, Ur Leukocyte Esterase NEG, Ur Microscopic SEDIMENT EXAMINED, Urine RBC 3-5, Urine WBC 1-3 H, Ur Epithelial Cells FEW, Urine Bacteria RARE H, Granular Casts 3-5 H, Urine Mucus RARE, Urine Hemoglobin SMALL H, Urine Glucose NEG 05/24/17 0530: Anion Gap 14, Estimated GFR 38 L, BUN/Creatinine Ratio 15.6, Glucose 157 H, Calcium 9.7, Total Bilirubin 0.8, AST 26, ALT 24, Alkaline Phosphatase 69, Troponin I 0.08, Hxw-B-Sxtjeiczliv Pept 2400 H, Total Protein 5.9 L, Albumin 3.8, Globulin 2.1, Albumin/Globulin Ratio 1.8, CBC w Diff NO MAN DIFF REQ, RBC 4.53 L, MCV 95.7 H, MCH 31.5 H, MCHC 32.9 L, RDW 14.2, MPV 8.9, Gran % 82.4 H, Lymphocytes % 6.4 L, Monocytes % 8.1, Eosinophils % 3.0, Basophils % 0.1, Absolute Granulocytes 5.2, Absolute Lymphocytes 0.4 L, Absolute Monocytes 0.5, Absolute Eosinophils 0.2, Absolute Basophils 0 05/24/17 0520: pH 7.33 L, pCO2 44, pO2 251 H, HCO3 23, ABG O2 Sat (Measured) 98.0, P-50 (Temp Corrected) Y, Carboxyhemoglobin 0.9 L, O2 Concentration % 100%, Temperature 99.5, Respiration Rate 24, O2 Delivery Method VISION-FFM, Vent Mode ST, Expiratory Pressure 6, Inspiratory Pressure 18, Phlebotomy Draw Site LEFT RADIAL Assessment/Plan Assessment/Plan 1. Coronary disease as noted above with PCI to the circumflex November 2013, DUNIA to the LAD is September 2016 and DUNIA to the LAD in February 2017. Initial troponin is negative and there are no acute EKG changes suggestive of an acute infarct 2. Acute diastolic heart failure with an elevated BNP. EF of 55% 2016 3. COPD 4. Chronic renal insufficiency 5. Hyperlipidemia 6. Hypertension 7. Carcinoma lung status post lobectomy Dyspnea: Likely multifactorial including COPD, as well as acute on chronic congestive heart failure with preserved LV systolic function. The patient has diuresed approximately 1-1/2 L since admission, and we will continue targeting approximately 1 L net output per day. Continue treatment of underlying lung issues as per medical team and pulmonary. Troponin isoenzyme: The patient has known coronary artery disease and has mild troponin isoenzyme elevations. He presented hypoxic as well as hypotensive, and his overall course is consistent with an acute type II (supply demand mismatch) myocardial infarction. He has no otherwise ischemic symptoms, and we will therefore continue his current regimen. Once he is improved from a respiratory standpoint , further follow-up to determine an underlying burden of ischemia will need to be performed. They be performed as an outpatient. Continue telemetry? Yes
--- NOTE | 2017-05-25 12:34 | ECHOCARDIOGRAM REPORT ---
MARY FLORES Age: 67 : 1950 Gender: M Exam Date: 05/24/2017 19:15 Exam Location: [facility] Ht (in): 66 Wt (lb): 200 BSA: 2.09 BP: 134 / 78 Ordering Physician: Gaby Marroquin MD Referring Physician: Nir Davis M.D. Technologist: Christina Baez RDCS Room Number: 178 Indications: HEART FAILURE Rhythm: Technical Quality: FINDINGS Left Ventricle Normal LV chamber size with mild concentric LVH. The estimated LVEF is 50% there are no focal wall motion abnormalities. Right Ventricle Grossly normal appearing right ventricular structure and function Right Atrium Normal-appearing right atrium Left Atrium Normal-appearing left atrium Mitral Valve Mildly thickened and calcified mitral valvular leaflets and annulus. There is adequate leaflet opening. There is mild mitral regurgitation. Aortic Valve Mildly thickened and calcified aortic valve leaflets with normal leaflet opening. Tricuspid Valve Normal appearing tricuspid valvular leaflets, structure and function. There is mild tricuspid regurgitation. The estimated PA systolic pressure is 40 mmHg. Pulmonic Valve Normal-appearing pulmonic valvular leaflets, structure and function Pericardium Normal pericardium Great Vessels Grossly normal great vessels CONCLUSIONS Normal LV chamber size with mild concentric LVH. The estimated LVEF is 50% there are no focal wall motion abnormalities. Mildly thickened and calcified mitral valvular leaflets and annulus. There is adequate leaflet opening. There is mild mitral regurgitation. The estimated PA systolic pressure is 40 mmHg. Song Edmonds M.D. (Electronically Signed) Final Date: 25 May 2017 12:33 MEASUREMENTS (Male / Female) Normal Values 2D ECHO LV Diastolic Diameter PLAX 3.3 cm 4.2 - 5.9 / 3.9 - 5.3 cm LV Systolic Diameter PLAX 2.2 cm 2.1 - 4.0 cm LV Fractional Shortening PLAX 33.3 % 25 - 46 % LV Ejection Fraction 2D Teich 63.3 % IVS Diastolic Thickness 1.3 cm LVPW Diastolic Thickness 1.3 cm LV Relative Wall Thickness 0.8 RV Internal Dim ED PLAX 2.9 cm 1.9 - 3.8 cm LVOT Diameter 1.7 cm Aortic Root Diameter 2.5 cm LA Systolic Diameter LX 3.4 cm 3.0 - 4.0 / 2.7 - 3.8 cm LA Volume 32.0 cm 18 - 58 / 22 - 52 cm Ascending Aorta Diameter 2.6 cm DOPPLER AV Peak Velocity 156.0 cm/s AV Peak Gradient 9.7 mmHg AV Mean Velocity 104.0 cm/s AV Mean Gradient 5.0 mmHg AV Velocity Time Integral 29.4 cm LVOT Peak Velocity 134.0 cm/s LVOT Peak Gradient 7.2 mmHg LVOT Mean Velocity 83.4 cm/s LVOT Mean Gradient 3.0 mmHg LVOT Velocity Time Integral 26.0 cm LVOT Stroke Volume 59.0 cm AV Area Cont Eq vti 2.0 cm AV Area Cont Eq pk 1.9 cm MV Peak Velocity 152.0 cm/s MV Peak Gradient 9.2 mmHg MV Mean Velocity 75.4 cm/s MV Mean Gradient 3.0 mmHg Mitral E Point Velocity 92.3 cm/s Mitral A Point Velocity 127.0 cm/s Mitral E to A Ratio 0.7 MV PHT Velocity 118.0 cm/s MV Deceleration [place] 519.0 cm/s MV Pressure Half Time 68.2 ms MV Area PHT 3.2 cm MV Deceleration Time 320.0 ms TR Peak Velocity 296.0 cm/s TR Peak Gradient 35.0 mmHg Right Atrial Pressure 5.0 mmHg Pulmonary Artery Systolic Pressu 40.0 mmHg Right Ventricular Systolic Press 40.0 mmHg PV Peak Velocity 121.0 cm/s PV Peak Gradient 5.9 mmHg PV Mean Velocity 83.4 cm/s PV Mean Gradient 3.0 mmHg PV Velocity Time Integral 23.5 cm LV E' Lateral Velocity 6.9 cm/s Mitral E to LV E' Lateral Ratio 13.4 LV E' Septal Velocity 4.6 cm/s Mitral E to LV E' Septal Ratio 20.2
[2017-05-25 13:49] VITALS: BP 100/50
[2017-05-25 16:15] VITALS: BP 106/70
[2017-05-25 22:20] VITALS: BP 122/56
[2017-05-26 06:53] VITALS: BP 152/84
[2017-05-26 07:59] LABS: ABSOLUTE BASOPHIL COUNT 0 /CUMM (0.0-0.2); ABSOLUTE EOSINOPHIL COUNT 0.1 /CUMM (0.0-0.7); ABSOLUTE LYMPH COUNT 0.5 /CUMM (1.2-3.4); ABSOLUTE MONOCYTE COUNT 0.6 /CUMM (0.10-0.60); BASOPHIL % 0.3 % (0.0-2.0); EOSINOPHIL % 1.7 % (0-5); GRANULOCYTE % 75.7 % (42.2-75.2); HEMATOCRIT 37.3 % (42-52); MEAN CORPUSCULAR HGB 32.5 PG (27.0-31.0); MEAN CORPUSCULAR HGB CONC 34.3 G/DL (33.0-37.0); MEAN PLATELET VOLUME 9.5 FL (7.4-10.4); PLATELET COUNT 110 /CUMM (130-400); RBC DISTRIBUTION WIDTH 14.3 % (11.5-14.5); RED BLOOD CELL CT 3.93 /CUMM (4.70-6.10); WHITE BLOOD CELL COUNT 5.2 /CUMM (4.8-10.8)
--- NOTE | 2017-05-26 10:18 | PN- Cardiology ---
Subjective Subjective: Telemetry reveals sinus rhythm. Patient feeding well. Claims to be back on his usual oxygen requirements. Objective Vital Signs and I&Os Vital Signs Date Time Temp Pulse Resp B/P B/P Pulse O2 O2 Flow FiO2 Mean Ox Delivery Rate 05/26 0956 74 140/62 05/26 0953 74 140/62 05/26 0653 97.6 81 18 152/84 93 Nasal Cannula 05/26 0000 Nasal 2.0L Cannula 05/25 2220 98.5 75 18 122/56 94 Nasal 2.0L Cannula 05/25 2104 77 122/56 05/25 1615 106/70 05/25 1600 Nasal 2.0L Cannula 05/25 1349 97.6 74 18 100/50 94 Nasal 2.0L Cannula Intake & Output 05/26 1600 05/26 0800 05/26 0000 05/25 1600 05/25 0800 05/25 0000 Intake Total 210 480 600 220 600 Output Total 300 550 600 550 Balance -90 -70 600 -380 50 Intake, IV 10 Intake, Oral 200 480 600 220 600 Number 1 Bowel Movements Output, Urine 300 550 600 550 Patient 159 lb 165 lb 167 lb Weight Weight Bed scale Bed scale Bed scale Measurement Method Physical Exam: General exam he appeared comfortable Head normocephalic atraumatic Eyes sclera anicteric conjunctiva showed no pallor extraocular muscles were normal Neck no jugular venous distention no thyroid masses no palpable nodes Chest lungs reveal scattered wheezes bilaterally Heart regular rhythm without definite murmurs likes abdomen soft no organomegaly bowel sounds normal Extremities no clubbing cyanosis or edema Neurological no gross motor or sensory deficits Current Medications: Current Medications Sig/Carlito Start time Last Medication Dose Route Stop Time Status Admin Acetaminophen 650 MG Q6P PRN 05/24 1100 AC 05/25 PO 0901 Albuterol Sulfate 2 PUF Q4P PRN 05/24 2130 AC 05/25 INH 0903 Aspirin Buffered 81 MG DAILY 05/24 1154 AC 05/26 PO 0956 Atorvastatin Calcium 40 MG 1700 05/24 1700 AC 05/25 PO 1649 Carvedilol 25 MG BID 05/24 2200 AC 05/26 PO 0956 Cholecalciferol 1,000 IU DAILY 05/24 1154 AC 05/26 PO 0956 Ferrous Sulfate 325 MG DAILY 05/25 1000 AC 05/26 PO 0956 Fluticasone 2 PUF BID 05/24 2199 AC 05/26 Propionate INH 0957 Furosemide 40 MG 7:30 AM, & 4:30 PM 05/26 0945 AC 05/26 PO 0953 Furosemide 40 MG DAILY 05/25 1000 DC 05/25 IV 0900 Heparin Sodium 5,000 UNIT Q8 05/24 1400 AC 05/26 (Porcine) SC 0634 Isosorbide 30 MG DAILY 05/24 1155 AC 05/26 Mononitrate PO 0953 Lorazepam 0.5 MG ONE ONE 05/25 1015 DC 05/25 PO 05/25 1016 1025 Lorazepam 1 MG BID PRN 05/24 1200 AC 05/26 PO 0746 Losartan Potassium 25 MG DAILY 05/26 1000 CAN PO Omeprazole 40 MG DAILY AC 05/24 1155 AC 05/26 PO 0634 Potassium Chloride 40 MEQ ONCE ONE 05/25 1600 DC 05/25 PO 05/25 1601 1918 Potassium Chloride 40 MEQ ONCE ONE 05/25 1315 DC 05/25 PO 05/25 1316 1649 Potassium Chloride 20 MEQ BID 05/24 2200 AC 05/26 PO 0956 Ticagrelor 90 MG BID 05/24 1156 AC 05/26 PO 0956 Results Last 48 Hrs of Labs/Mics: Laboratory Tests 05/26/17 0646: Anion Gap 11, Estimated GFR 38 L, BUN/Creatinine Ratio 16.7, CBC w Diff NO MAN DIFF REQ, RBC 3.93 L, MCV 95.0 H, MCH 32.5 H, MCHC 34.3, RDW 14.3, MPV 9.5, Gran % 75.7 H, Lymphocytes % 10.1 L, Monocytes % 12.2 H, Eosinophils % 1.7, Basophils % 0.3, Absolute Granulocytes 4.0, Absolute Lymphocytes 0.5 L, Absolute Monocytes 0.6, Absolute Eosinophils 0.1, Absolute Basophils 0 05/25/17 0625: Anion Gap 11, Estimated GFR 41 L, BUN/Creatinine Ratio 16.5, CBC w Diff MAN DIFF ORDERED, RBC 3.72 L, MCV 95.3 H, MCH 32.4 H, MCHC 34.0, RDW 14.4, MPV 9.4, Gran % 78.0 H, Lymphocytes % 8.8 L, Monocytes % 12.0 H, Eosinophils % 1.0, Basophils % 0.2, Absolute Granulocytes 4.8, Segmented Neutrophils 73, Band Neutrophils 7 H, Absolute Lymphocytes 0.5 L, Lymphocytes 6 L, Monocytes 13 H , Absolute Monocytes 0.7 H, Eosinophils 1, Absolute Eosinophils 0.1, Absolute Basophils 0, Normocytic RBCs VERIFIED, Normochromic RBCs VERIFIED 05/24/17 1807: Troponin I 0.75 *H 05/24/17 1200: Troponin I 0.84 *H Assessment/Plan Assessment/Plan In summary this 67-year-old gentleman has the following problems 1. Coronary disease as noted above with PCI to the circumflex November 2013, DUNIA to the LAD is September 2016 and DUNIA to the LAD in February 2017. Initial troponin is mildly elevated and flat and there are no acute EKG changes suggestive of an acute infarct 2. Acute diastolic heart failure with an elevated BNP. EF 50% by recent echocardiogram in the hospital with no definite segmental abnormalities 3. COPD 4. Chronic renal insufficiency 5. Hyperlipidemia 6. Hypertension 7. Carcinoma lung status post lobectomy He is back on oral diuretics at the moment. He will continue to be ambulated. Discharge follow-up recommended with pulmonary, cardiology and nephrology. Continue telemetry? Yes
--- NOTE | 2017-05-26 10:30 | PN- Housestaff ---
Albert Mustafa 05/26/17 1026: Subjective Follow-up For: 1. Coronary disease as noted above with PCI to the circumflex November 2013, DUNIA to the LAD is September 2016 and DUNIA to the LAD in February 2017. 2. Acute diastolic heart failure with an elevated BNP. EF of 55% 2016 3. COPD Tele-Events Since Last Visit: Sinus rhythm Subjective: Feels well overall. Reports breathing at baseline. No fevers or chills overnight. No cough. Other systems reviewed and negative exceptions above. Review of Systems Constitutional: Reports: see HPI. Objective Last 24 Hrs of Vital Signs/I&O Vital Signs Date Time Temp Pulse Resp B/P B/P Pulse O2 O2 Flow FiO2 Mean Ox Delivery Rate 05/26 0956 74 140/62 05/26 0953 74 140/62 05/26 0653 97.6 81 18 152/84 93 Nasal Cannula 05/26 0000 Nasal 2.0L Cannula 05/25 2220 98.5 75 18 122/56 94 Nasal 2.0L Cannula 05/25 2104 77 122/56 05/25 1615 106/70 05/25 1600 Nasal 2.0L Cannula 05/25 1349 97.6 74 18 100/50 94 Nasal 2.0L Cannula Intake & Output 05/26 1600 05/26 0800 05/26 0000 Intake Total 210 480 Output Total 300 550 Balance -90 -70 Intake, IV 10 Intake, Oral 200 480 Output, Urine 300 550 Patient 159 lb Weight Weight Bed scale Measurement Method Physical Exam General Appearance: Alert, Oriented X3, Cooperative HEENT: Atraumatic, PERRLA Cardiovascular: Regular Rate, Normal S1, Normal S2 Lungs: Clear to Auscultation, Normal Air Movement Abdomen: Normal Bowel Sounds, Soft, No Tenderness Extremities: No Clubbing, No Cyanosis, No Edema Current Medications: Current Medications Sig/Carlito Start time Last Medication Dose Route Stop Time Status Admin Acetaminophen 650 MG Q6P PRN 05/24 1100 AC 05/25 PO 0901 Albuterol Sulfate 2 PUF Q4P PRN 05/24 2130 AC 05/25 INH 0903 Aspirin Buffered 81 MG DAILY 05/24 1154 AC 05/26 PO 0956 Atorvastatin Calcium 40 MG 1700 05/24 1700 AC 05/25 PO 1649 Carvedilol 25 MG BID 05/24 2200 AC 05/26 PO 0956 Cholecalciferol 1,000 IU DAILY 05/24 1154 AC 05/26 PO 0956 Ferrous Sulfate 325 MG DAILY 05/25 1000 AC 05/26 PO 0956 Fluticasone 2 PUF BID 05/24 2200 AC 05/26 Propionate INH 0957 Furosemide 40 MG 7:30 AM, & 4:30 PM 05/26 0945 AC 05/26 PO 0953 Furosemide 40 MG DAILY 05/25 1000 DC 05/25 IV 0900 Heparin Sodium 5,000 UNIT Q8 05/24 1400 AC 05/26 (Porcine) SC 0634 Isosorbide 30 MG DAILY 05/24 1155 AC 05/26 Mononitrate PO 0953 Lorazepam 1 MG BID PRN 05/24 1200 AC 05/26 PO 0746 Losartan Potassium 25 MG DAILY 05/26 1000 CAN PO Omeprazole 40 MG DAILY AC 05/24 1155 AC 05/26 PO 0634 Potassium Chloride 40 MEQ ONCE ONE 05/25 1600 DC 05/25 PO 05/25 1601 1918 Potassium Chloride 40 MEQ ONCE ONE 05/25 1315 DC 05/25 PO 05/25 1316 1649 Potassium Chloride 20 MEQ BID 05/24 2200 AC 05/26 PO 0956 Ticagrelor 90 MG BID 05/24 1156 AC 05/26 PO 0956 Last 24 Hrs of Lab/Leonel Results Last 24 Hrs of Labs/Mics: Laboratory Tests 05/26/17 0646: Anion Gap 11, Estimated GFR 38 L, BUN/Creatinine Ratio 16.7, CBC w Diff NO MAN DIFF REQ, RBC 3.93 L, MCV 95.0 H, MCH 32.5 H, MCHC 34.3, RDW 14.3, MPV 9.5, Gran % 75.7 H, Lymphocytes % 10.1 L, Monocytes % 12.2 H, Eosinophils % 1.7, Basophils % 0.3, Absolute Granulocytes 4.0, Absolute Lymphocytes 0.5 L, Absolute Monocytes 0.6, Absolute Eosinophils 0.1, Absolute Basophils 0 Assessment/Plan Assessment: 67-year-old gentleman with coronary artery disease status post 3 stents, most recent February 2017, presented with sudden onset shortness of breath requiring BiPAP transiently and intravenous furosemide with subsequent improvement in his breathing symptoms. 1. Acute diastolic heart failure. Continue diuresis now with by mouth Lasix. Monitor renal function tomorrow. Continue current meds. Hold valsartan today. 2. COPD. TRC nebs. 3. Hypertension/hyperlipidemia. Continue current meds. Continue holding valsartan. Full code. Heart healthy diet. DVT prophylaxis-pharmacologic. Problem List: 1. CAD Pain Ratin Pain Location: None Pain Goal: Remain pain free Pain Plan: PRN Tomorrow's Labs & Rationales: Renal function Saravanan BARRIENTOS,Napoleon 05/26/17 1135: Attending MD Review Statement Attending Statement Attending MD Statement: examined this patient, discuss w/resident/PA/GRAIN MIXER, agreed w/resident/PA/GRAIN MIXER, reviewed EMR data (avail), discussed with nursing, discussed with case mgmt, amended to note Attending Assessment/Plan: Patient seen and examined. Resting comfortably not in any acute distress. Reports feeling better compared to presentation. Reports that shortness of breath with exertion. Oxygen requirement remained stable. He appears to have lost 3 kg over the past 48 hours. A positive fluid balance was recorded yesterday however patient reports that urine output may not have been adequately measured yesterday. Creatinine level remained stable. On examination he is not in any respiratory distress. Lungs are clear bilaterally. Abdomen soft and peripheral edema has improved. Recommendations: -Patient has been transitioned to oral Lasix. Dose has been increased to 40 mg twice daily. -Monitor patient today on this regimen. If he continues to maintain a negative fluid balance to be discharged home on this regimen with outpatient follow-up with his primary care providers. -Patient has chronic thrombocytopenia. Levels are relatively stable. He does have history of hepatitis C. Follow-up will be as directed by his PCP as an outpatient.
[2017-05-26] MEDS ORDERED: LASIX40 M1 PO (13:35)
--- NOTE | 2017-05-26 13:37 | Patient Discharge Instructions ---
Discharge Instructions General Discharge Information You were seen/treated for: Acute onset shortness of breath, likely secondary to congestive heart failure Watch for these problems: Worsening shortness of breath. Palpitations, chest pains. Lightheadedness, dizziness. Special Instructions: Please follow-up with hat forming machine operator as an outpatient within 1-2 weeks. Please follow-up with primary care physician as an outpatient within 1-2 weeks for Please follow-up with application development specialist as an outpatient within 1-2 weeks. Please follow-up with sidehand as an outpatient within 1-2 weeks. Diet Continue normal diet: No Recommended Diet: Heart Healthy Activity Full Activity/No Limits: Yes Acute Coronary Syndrome Inclusion Criteria At DC or during hospital stay patient has or had the following: ACS DIAGNOSIS No Discharge Core Measures Meds if any: Prescribed or Continued at Discharge Meds if any: NOT Prescribed or Continued at Discharge Congestive Heart Failure Inclusion Criteria At DC or during hospital stay patient has or had the following: CHF DIAGNOSIS Yes Discharge Core Measures Meds if any: Prescribed or Continued at Discharge AGATA/ARB for EF <40% Yes Meds if any: NOT Prescribed or Continued at Discharge Cerebrovascular accident Inclusion Criteria At DC or during hospital stay patient has or had the following: CVA/TIA Diagnosis No Discharge Core Measures Meds if any: Prescribed or Continued at Discharge Meds if any: NOT Prescribed or Continued at Discharge Venous thromboembolism Inclusion Criteria VTE Diagnosis No VTE Type NONE VTE Confirmed by (Test) NONE Discharge Core Measures - Per Current guidelines, there needs to be overlap - treatment for the first 5 days of Warfarin therapy. - If discharged on Warfarin prior to 5 days of - overlap therapy, the patient will need to be - assessed for post discharge needs including - *Post discharge parental anticoagulation - *Warfarin and/or parental anticoagulation education - *Follow up date to check INR post discharge At least 5 days overlap therapy as Inpatient No Meds if any: Prescribed or Continued at Discharge Note: Overlap Therapy is Warfarin and Anticoagulant Meds if any: NOT Prescribed or Continued at Discharge
--- NOTE | 2017-05-26 13:38 | Discharge Summary ---
Visit Information Visit Dates Admission Date: 05/24/17 Discharge Date: 05/27/17 Hospital Course Course Attending Physician: Napoleon Coe MD Primary Care Physician: Rayray BARRIENTOS,Nacho Maldonado Hospital Course: 67-year-old gentleman past medical history COPD on home oxygen 2 L, hypertension , hyperlipidemia, peripheral arterial disease, coronary artery disease status post PCI to circumflex November 2013, drug-eluting stent to LAD in September 2016, and PCI to the LAD with a DUNIA, with a chronically occluded right coronary artery who presented to [facility] ED feeling unwell and acute nocturnal awakening with shortness of breath and chills. He noted similar episodes in the past, but they resolve quickly. The day of admission his symptoms persisted and he was found to be hypoxemic with rales. Patient was admitted to telemetry. He was treated for acute diastolic heart failure. On the following days, no EKG changes were noted and her troponins trended down ruling out ACS. He was continued on diuresis and renal function was closely monitored. He was transiently treated with BiPAP with symptomatic improvement, and later did well on oxygen via nasal cannula and was discharged on the same. Patient was discharged on Lasix 40 mg twice a day and was advised to follow-up with the CHF clinic as an outpatient. He had transient hypokalemia for which he was supplemented appropriately and was discharged on the same home medications, except for the aforementioned frequent. Allergies: Coded Allergies: amoxicillin (Severe, TROUBLE BREATHING AND RASH 08/01/15) Penicillins (UNKNOWN 08/01/15) Opioids - Morphine Analogues (SENSITIVITY 08/01/15) Uncoded Allergies: ANTIBIOTIC THAT STARTS WITH AN "A" (UNKNOWN 05/05/12) Significant Procedures: EXAM TYPE: CARD - ECHOCARDIOGRAM CONCLUSIONS Normal LV chamber size with mild concentric LVH. The estimated LVEF is 50% there are no focal wall motion abnormalities. Mildly thickened and calcified mitral valvular leaflets and annulus. There is adequate leaflet opening. There is mild mitral regurgitation. The estimated PA systolic pressure is 40 mmHg. Disposition Summary Disposition Principal Diagnosis: Acute diastolic heart failure with an elevated BNP Additional Diagnosis: COPD Chronic renal insufficiency Hypertension Hyperlipidemia Discharge Disposition: home or self care Discharge Instructions General Discharge Information Code Status: Full Code Patient's Diet: CHF diet Patient's Activity: As tolerated Follow-Up Instructions/Appts: Please follow-up with tattoo artist as an outpatient and CHF clinic as an outpatient in 1-2 weeks. Please follow-up with crabbing machine operator in 1-2 weeks. Please follow with primary care physician in 1-2 weeks. Medications at Discharge Discharge Medications: Stop taking the following medications: Furosemide (Furosemide) 40 MG TABLET ORAL DAILY Qty = 90 Continue taking these medications: Fluticasone/Salmeterol (Advair 250-50 Diskus) 250 MCG-50 MCG/DOSE BLST.W.DEV 1 Puff Inhale through mouth TWICE DAILY Comments: NOT GIVEN IN HOSPITAL Aspirin (Ecotrin*) 81 MG TABLET.DR 1 Tablet ORAL DAILY Comments: Last Taken: 05/27/17 Time: 09:12 AM Rosuvastatin Calcium (Crestor) 40 MG TABLET 1 Tablet ORAL DAILY Comments: LIPITOR GIVEN IN HOSPITAL Last Taken: 04/28/17 Time: 16:52 PM LORazepam (Ativan) 1 MG TABLET 1 Tablet ORAL TWICE DAILY as needed for anxiety Comments: Last Taken: 05/27/17 Time: 05:21 AM Potassium Chloride (Klor-Con M20) 20 MEQ TAB.ER.PRT 1 Tablet ORAL TWICE DAILY Comments: TAKE DIRECTED Last Taken: 05/27/17 Time: 11:32 AM Ferrous Sulfate (Ferrous Sulfate) 325 MG (65 MG IRON) TABLET 1 Tablet ORAL DAILY Comments: Last Taken: 05/27/17 Time: 09:12 AM Aclidinium [place] (Tudorza Pressair) 400 MCG/ACTUATION AER.POW.BA 1 PUFF ORAL TWICE DAILY Comments: DID NOT TAKE IN HOSPITAL Valsartan (Diovan) 80 MG TABLET 1 Tablet ORAL DAILY Comments: DID NOT TAKE IN HOSPITAL Cholecalciferol (Vitamin D3) 1,000 UNIT TABLET 1 Tablet ORAL DAILY Comments: Last Taken: 05/27/17 Time: 09:12 AM Omeprazole (Omeprazole) 40 MG CAPSULE.DR 1 Capsule ORAL DAILY Comments: Last Taken: 05/27/17 Time: 05:20 AM Ticagrelor (Brilinta) 90 MG TABLET 90 Milligram ORAL TWICE DAILY Qty = 14 Comments: Last Taken: 05/27/17 Time: 09:12 AM Ondansetron (Zofran Odt) 4 MG TAB.RAPDIS 1 Tablet SUBLINGUAL THREE TIMES DAILY as needed for NAUSEA Qty = 10 Comments: DID NOT TAKE IN HOSPITAL Albuterol Sulfate (Proair Hfa) 90 MCG HFA.AER.AD 2 Puff Inhale through mouth EVERY 4-6 HOURS NEEDED as needed for SHORTNESS OF BREATH Comments: Last Taken: 05/25/17 Time: 09:03 AM Carvedilol (Carvedilol) 25 MG TABLET 1 Tablet ORAL TWICE DAILY Comments: Last Taken: 05/27/17 Time: 09:12 AM Isosorbide Mononitrate (Isosorbide Mononitrate ER) 30 MG TAB.ER.24H 1 Tablet ORAL DAILY Qty = 90 Comments: Last Taken: 05/27/17 Time: 09:12 AM Start taking the following new medications: Furosemide (Lasix) 40 MG TABLET 40 Milligram ORAL 7:30AM & 4:30PM Days = 30 No Refills Copies To: Saravanan BARRIENTOS,Napoleon; Rayray BARRIENTOS,Nacho Maldonado; Grey BARRIENTOS,Song Attending MD Review Statement Documenting Attending: Saravanan BARRIENTOS,Napoleon Other Findings: Patient medically stable to be discharged home today.
[2017-05-26 22:01] VITALS: BP 136/64
[2017-05-27 06:36] VITALS: BP 140/80
--- NOTE | 2017-05-27 08:54 | PN- Housestaff ---
Albert Mustafa 05/27/17 0849: Subjective Follow-up For: 1. Coronary disease as noted above with PCI to the circumflex November 2013, DUNIA to the LAD is September 2016 and DUNIA to the LAD in February 2017. 2. Acute diastolic heart failure with an elevated BNP. EF of 55% 2016 3. COPD Tele-Events Since Last Visit: SR 60s Subjective: Feels well overall. Reports improved breathing. No fevers or chills overnight. No cough. Other systems reviewed and negative exceptions above. Review of Systems Constitutional: Reports: see HPI. Objective Last 24 Hrs of Vital Signs/I&O Vital Signs Date Time Temp Pulse Resp B/P B/P Pulse O2 O2 Flow FiO2 Mean Ox Delivery Rate 05/28 635 98.0 69 140/80 05/26 2202 Nasal 2.0L Cannula 05/26 2200 97.7 68 21 136/64 96 05/26 2100 74 126/62 05/26 1600 Room Air 05/26 0956 74 140/62 05/26 0953 74 140/62 Intake & Output 05/27 1600 05/27 0800 05/27 0000 Intake Total 240 360 Output Total 800 1150 Balance -560 -790 Intake, Oral 240 360 Output, Urine 800 1150 Patient 159 lb Weight Weight Bed scale Measurement Method Physical Exam General Appearance: Alert, Oriented X3, Cooperative Cardiovascular: Regular Rate, Normal S1, Normal S2 Lungs: Clear to Auscultation, Normal Air Movement Abdomen: Normal Bowel Sounds, Soft, No Tenderness Extremities: No Clubbing, No Cyanosis, No Edema Current Medications: Current Medications Sig/Carlito Start time Last Medication Dose Route Stop Time Status Admin Acetaminophen 650 MG Q6P PRN 05/24 1100 AC 05/25 PO 0901 Albuterol Sulfate 2 PUF Q4P PRN 05/24 2130 AC 05/25 INH 0903 Aspirin Buffered 81 MG DAILY 05/24 1154 AC 05/26 PO 0956 Atorvastatin Calcium 40 MG 1700 05/24 1700 AC 05/26 PO 1652 Carvedilol 25 MG BID 05/24 2200 AC 05/26 PO 2100 Cholecalciferol 1,000 IU DAILY 05/24 1154 AC 05/26 PO 0956 Ferrous Sulfate 325 MG DAILY 05/25 1000 AC 05/26 PO 0956 Fluticasone 2 PUF BID 05/24 2199 AC 05/26 Propionate INH 2055 Furosemide 40 MG 7:30 AM, & 4:30 PM 05/26 0945 AC 05/27 PO 0818 Furosemide 40 MG DAILY 05/25 1000 DC 05/25 IV 0900 Heparin Sodium 5,000 UNIT Q8 05/24 1400 AC 05/27 (Porcine) SC 0521 Isosorbide 30 MG DAILY 05/24 1155 AC 05/26 Mononitrate PO 0953 Lorazepam 1 MG BID PRN 05/24 1200 AC 05/27 PO 0521 Omeprazole 40 MG DAILY AC 05/24 1155 AC 05/27 PO 0520 Patient Medication 1 ED ONE ONE 05/26 1515 DC Teaching ED 05/26 1516 Potassium Chloride 40 MEQ ONCE ONE 05/27 1200 UNVr PO 05/27 1201 Potassium Chloride 40 MEQ ONCE ONE 05/27 0900 UNVr PO 05/27 0901 Potassium Chloride 20 MEQ BID 05/24 2200 AC 05/26 PO 205 Ticagrelor 90 MG BID 05/24 1156 AC 05/26 PO 205 Last 24 Hrs of Lab/Leonel Results Last 24 Hrs of Labs/Mics: Laboratory Tests 05/27/17 0616: Anion Gap 12, Estimated GFR 43 L, BUN/Creatinine Ratio 16.3 Assessment/Plan Assessment: 67-year-old gentleman with coronary artery disease status post 3 stents, most recent February 2017, presented with sudden onset shortness of breath now with much improved breathing after treatment with IV Lasix and transitioned to by mouth Lasix 1. Acute diastolic heart failure. Output -1 L yesterday, at goal. Renal function improved. We will discharge him on Lasix 40 mg twice a day, and close follow-up with mri specialist in 1-2 weeks. Hypokalemia. Replete. We'll continue his outpatient potassium regimen. Continue all other current meds. Valsartan was held inpatient, will restart upon discharge, this likely will help his potassium levels as well. 2. COPD. stable. TRC nebs. 3. Hypertension/hyperlipidemia. Continue current meds. Continue holding valsartan upon discharge. Stable to be discharged today. Full code. Heart healthy diet. DVT prophylaxis-pharmacologic. Problem List: 1. Pulmonary edema Pain Ratin Pain Location: None Pain Goal: Remain pain free Pain Plan: When necessary Tomorrow's Labs & Rationales: Not needed Saravanan BARRIENTOS,Napoleon 05/27/17 1149: Attending MD Review Statement Attending Statement Attending MD Statement: examined this patient, discuss w/resident/PA/HEAD OF CONSERVATION, agreed w/resident/PA/HEAD OF CONSERVATION, reviewed EMR data (avail), discussed with nursing, discussed with case mgmt, amended to note Attending Assessment/Plan: Patient seen and examined. Resting comfortably not in any acute distress. Reports any better this morning. Ambulating with no complaints. He has continued to diurese appropriately. He diuresed over 2 L yesterday was negative for 1 L on oral Lasix. Oxygen requirement remains stable. Lungs are clear to auscultation. Peripheral edema has improved compared to presentation. Patient is medically stable to be discharged home today. He will be discharged on Lasix twice with the dose increased to 40 mg orally twice daily. He has been advised to follow-up with the CHF clinic as an outpatient. Potassium was mildly low and he has received supplementation this morning. He is medically stable to be discharged home today.
[2017-05-27 09:12] VITALS: BP 130/70
--- NOTE | 2017-05-27 11:02 | PN- Cardiology ---
Subjective Subjective: The patient is awake, alert The events of the last 24 hours as well as telemetry were reviewed. Review of Systems: The review of systems is negative for chest pains, palpitations nor lightheadedness. The remainder of the 14 point review of systems is noncontributory with the exception of above. Objective Vital Signs and I&Os Vital Signs Date Time Temp Pulse Resp B/P B/P Pulse O2 O2 Flow FiO2 Mean Ox Delivery Rate 05/28 911 98.0 72 12 130/70 05/28 911 98.0 72 12 130/70 05/27 0636 98.0 69 140/80 05/26 2202 Nasal 2.0L Cannula 05/26 2200 97.7 68 21 136/64 96 05/26 2100 74 126/62 05/26 1600 Room Air Intake & Output 05/27 1600 05/27 0800 05/27 0000 05/26 1600 05/26 0800 05/26 0000 Intake Total 240 360 600 210 480 Output Total 800 1150 750 300 550 Balance -560 -790 -150 -90 -70 Intake, IV 10 Intake, Oral 240 360 600 200 480 Output, Urine 800 1150 750 300 550 Patient 159 lb 159 lb Weight Weight Bed scale Bed scale Measurement Method Physical Exam: General: Nontoxic, no apparent distress. HEENT: Sclera and conjunctiva within normal limits, without xanthelasmas. Neck: Carotids 2+ without bruits. Respiratory: Scattered rhonchi, air movement is decreased at bases, without accessory respiratory muscle use. Heart: Regular rate and rhythm, without murmurs, without JVD. Abdomen: Soft, nontender, no masses, normoactive bowel sounds. Extremities: Without clubbing, cyanosis, without edema. Neuro: Nonfocal exam, strength, 5 out of 5 Skin: Within normal limits without lesions. Psych: Mood and affect: Normal Current Medications: Current Medications Sig/Carlito Start time Last Medication Dose Route Stop Time Status Admin Acetaminophen 650 MG Q6P PRN 05/24 1100 AC 05/27 PO 1056 Albuterol Sulfate 2 PUF Q4P PRN 05/24 2130 AC 05/25 INH 0903 Aspirin Buffered 81 MG DAILY 05/24 1154 AC 05/27 PO 09 Atorvastatin Calcium 40 MG 1700 05/24 1700 AC 05/26 PO 1652 Carvedilol 25 MG BID 05/24 2200 AC 05/27 PO 0912 Cholecalciferol 1,000 IU DAILY 05/24 1154 AC 05/27 PO 0912 Ferrous Sulfate 325 MG DAILY 05/25 1000 AC 05/27 PO 1037 Fluticasone 2 PUF BID 05/24 2200 AC 05/27 Propionate INH 0936 Furosemide 40 MG 7:30 AM, & 4:30 PM 05/26 0945 AC 05/27 PO 0818 Heparin Sodium 5,000 UNIT Q8 05/24 1400 AC 05/27 (Porcine) SC 0521 Isosorbide 30 MG DAILY 05/24 1155 AC 05/27 Mononitrate PO 0912 Lorazepam 1 MG BID PRN 05/24 1200 AC 05/27 PO 0521 Omeprazole 40 MG DAILY AC 05/24 1155 AC 05/27 PO 0520 Patient Medication 1 ED ONE ONE 05/26 1515 DC Teaching ED 05/26 1516 Potassium Chloride 40 MEQ ONCE ONE 05/27 1200 AC PO 05/27 1201 Potassium Chloride 40 MEQ ONCE ONE 05/27 0900 DC 05/27 PO 05/27 0901 0917 Potassium Chloride 20 MEQ BID 05/24 2200 AC 05/27 PO 0914 Ticagrelor 90 MG BID 05/24 1156 AC 05/27 PO 0912 Results Last 48 Hrs of Labs/Mics: Laboratory Tests 05/27/17 0616: Anion Gap 12, Estimated GFR 43 L, BUN/Creatinine Ratio 16.3 05/26/17 0646: Anion Gap 11, Estimated GFR 38 L, BUN/Creatinine Ratio 16.7, CBC w Diff NO MAN DIFF REQ, RBC 3.93 L, MCV 95.0 H, MCH 32.5 H, MCHC 34.3, RDW 14.3, MPV 9.5, Gran % 75.7 H, Lymphocytes % 10.1 L, Monocytes % 12.2 H, Eosinophils % 1.7, Basophils % 0.3, Absolute Granulocytes 4.0, Absolute Lymphocytes 0.5 L, Absolute Monocytes 0.6, Absolute Eosinophils 0.1, Absolute Basophils 0 Assessment/Plan Assessment/Plan 1. Coronary disease as noted above with PCI to the circumflex November 2013, DUNIA to the LAD is September 2016 and DUNIA to the LAD in February 2017. Initial troponin is negative and there are no acute EKG changes suggestive of an acute infarct 2. Acute diastolic heart failure with an elevated BNP. EF of 55% 2017 3. COPD 4. Chronic renal insufficiency 5. Hyperlipidemia 6. Hypertension 7. Carcinoma lung status post lobectomy Dyspnea: Likely multifactorial including COPD, as well as acute on chronic congestive heart failure with preserved LV systolic function. The patient has diuresed since admission, and has significant improved symptoms. We have discussed the need for daily weights and CHF precautions at home. Troponin isoenzyme: The patient has known coronary artery disease and has mild troponin isoenzyme elevations. He presented hypoxic as well as hypotensive, and his overall course is consistent with an acute type II (supply demand mismatch) myocardial infarction. He has no otherwise ischemic symptoms, and we will therefore continue his current regimen. Once he is improved from a respiratory standpoint , further follow-up to determine an underlying burden of ischemia will need to be performed. This will be performed as an outpatient. Continue telemetry? No
== END 2017-05-27 14:20 | DRG 280 ==
LOC: ERH 05:13 → 1NO 08:53 → ERHI 08:53 → ENRESERV 14:58 → ENTRNSPT 15:37 → 1NO 16:00 → EDTRNSPT 16:03 → EDTRNSPTSTS 16:03 → CMPTRNSPT 16:14 → ENPENDDIS 05-27 09:08 → ENTRNSPT 05-27 12:26 → EDTRNSPT 05-27 12:28 → EDTRNSPTSTS 05-27 13:09 → CMPTRNSPT 05-27 13:18 → 1NO 05-27 14:20
PROVIDERS: Emergency Medicine; Hospitalist; Internal Medicine Hematology & Oncology
DX: I13.0 Hypertensive heart and chronic kidney disease with heart failure and stage 1 through stage 4 chronic kidney disease, or unspecified chronic kidney disease (principal); J96.21 Acute and chronic respiratory failure with hypoxia; I21.A1 Myocardial infarction type 2; I73.9 Peripheral vascular disease, unspecified; J44.9 Chronic obstructive pulmonary disease, unspecified; N18.3 Chronic kidney disease, stage 3 (moderate); D69.6 Thrombocytopenia, unspecified; I50.33 Acute on chronic diastolic (congestive) heart failure; G62.9 Polyneuropathy, unspecified; E78.5 Hyperlipidemia, unspecified; E87.6 Hypokalemia; I25.10 Atherosclerotic heart disease of native coronary artery without angina pectoris; Z95.5 Presence of coronary angioplasty implant and graft; G50.0 Trigeminal neuralgia; I25.2 Old myocardial infarction; K21.9 Gastro-esophageal reflux disease without esophagitis; Z85.118 Personal history of other malignant neoplasm of bronchus and lung; E09.9 Drug or chemical induced diabetes mellitus without complications; T38.0X5S Adverse effect of glucocorticoids and synthetic analogues, sequela; Z86.19 Personal history of other infectious and parasitic diseases
CPT/HCPCS: 1NP; 36415; 36592; 71045; 81001; 82436; 87040; 93005; 93010; 93306; 94799; 96374; 99291; J1644; J1940; J3490; J7040

== ENCOUNTER 2017-08-17 00:59 | Inpatient (IN) | payer OTHER ==
[~2017-08-17] VITALS: Ht 160 cm; Wt 70.4 kg
[~2017-08-17 00:59] MED LIST changes: +LASIX40 M1 PO
--- NOTE | 2017-08-17 01:02 | ED DYSPNEA/ASTHMA COMPLAINT ---
See Addendum History of Present Illness General Chief Complaint: Dyspnea (COPD, CHF, Other) Stated Complaint: SOB Source: patient Exam Limitations: no limitations Vital Signs & Intake/Output Vital Signs & Intake/Output Vital Signs Date Time Temp Pulse Resp B/P B/P Pulse O2 O2 Flow FiO2 Mean Ox Delivery Rate 08/17 0240 98.2 98 18 127/58 95 Nasal 2.0L Cannula 08/17 0118 95 Nasal 2.0L Cannula 08/17 0107 93 Nasal 2.0L Cannula 08/17 0102 98.5 113 18 181/81 93 Nasal 3.0L Cannula Allergies Coded Allergies: amoxicillin (Severe, TROUBLE BREATHING AND RASH 08/01/15) Penicillins (UNKNOWN 08/01/15) Opioids - Morphine Analogues (SENSITIVITY 08/01/15) Uncoded Allergies: ANTIBIOTIC THAT STARTS WITH AN "A" (UNKNOWN 05/05/12) Reconcile Medications Aclidinium [place] (Tudorza Pressair) 400 MCG/ACTUATION AER.POW.BA 1 PUFF PO BID BREATHING PROBLEMS (Reported) Albuterol Sulfate (Proair Hfa) 90 MCG HFA.AER.AD 2 PUF INH Q4-6 PRN PRN SHORTNESS OF BREATH (Reported) Aspirin (Ecotrin*) 81 MG TABLET.DR 1 TAB PO DAILY HEART HEALTH (Reported) Carvedilol 25 MG TABLET 1 TAB PO BID HEART (Reported) Cholecalciferol (Vitamin D3) 1,000 UNIT TABLET 1 TAB PO DAILY VITAMIN SUPPORT (Reported) Ferrous Sulfate 325 MG (65 MG IRON) TABLET 1 TAB PO DAILY SUPPLEMENT ( Reported) Fluticasone/Salmeterol (Advair 250-50 Diskus) 250 MCG-50 MCG/DOSE BLST.W.DEV 1 PUF INH BID BREATHING PROBLEMS (Reported) Furosemide (Lasix) 40 MG TABLET 40 MG PO 7:30 AM, & 4:30 PM Fluid Isosorbide Mononitrate (Isosorbide Mononitrate ER) 30 MG TAB.ER.24H 1 TAB PO DAILY HEART (Reported) LORazepam (Ativan) 1 MG TABLET 1 TAB PO BID PRN anxiety (Reported) Omeprazole 40 MG CAPSULE.DR 1 CAP PO DAILY ACID REFLUX (Reported) Ondansetron (Zofran Odt) 4 MG TAB.RAPDIS 1 TAB SL TID PRN NAUSEA Potassium Chloride (Klor-Con M20) 20 MEQ TAB.ER.PRT 1 TAB PO BID SUPPLEMENT ( Reported) Rosuvastatin Calcium (Crestor) 40 MG TABLET 1 TAB PO DAILY CHOLESTEROL ( Reported) Ticagrelor (Brilinta) 90 MG TABLET 90 MG PO BID CAD Valsartan (Diovan) 80 MG TABLET 1 TAB PO DAILY HEART (Reported) Triage Nurses Notes Reviewed? yes Onset: Gradual Duration: day(s): Severity: moderate Activities at Onset: none Modifying Factors: Improves With: rest. Associated Symptoms: cough, wheezing HPI: 67 yo gentleman s/p rul lung resection, copd, diastolic chf, presents with dyspnea, cough, wheezing, yellow phlegm that began yesterday. "I knew I was getting sick... the last time I had bipap and I wanted to come in sooner." He is normally on 2 l nasal cannula. Per the medics, his 02 sat was 90% on his baseline 2l, visibly dyspneic, improved to 94% on 4 liters nasal cannula. He notes no fever, chills, chest pain. Past History Travel History Traveled to [place] past 21 day No Medical History Any Pertinent Medical History? 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 No Review of Systems Review of Systems Constitutional: Reports: no symptoms. EENTM: Reports: no symptoms. Respiratory: Reports: no symptoms. Cardiovascular: Reports: no symptoms. GI: Reports: no symptoms. Genitourinary: Reports: no symptoms. Musculoskeletal: Reports: no symptoms. Skin: Reports: no symptoms. Neurological/Psychological: Reports: no symptoms. Hematologic/Endocrine: Reports: no symptoms. Immunologic/Allergic: Reports: no symptoms. All Other Systems: Reviewed and Negative Physical Exam Physical Exam General Appearance: well developed/nourished, moderate distress Head: atraumatic, normal appearance Eyes: Bilateral: normal appearance. Ears, Nose, Throat: normal pharynx, normal ENT inspection Neck: normal inspection, supple, full range of motion Respiratory: rhonchi, wheezing, prolonged expiratory phase Cardiovascular: tachycardia Gastrointestinal: normal bowel sounds, soft, non-tender, no organomegaly Extremities: normal inspection, normal capillary refill, normal range of motion, no edema Neurologic/Psych: no motor/sensory deficits, awake, alert, oriented x 3 Skin: intact, normal color, warm/dry Core Measures ACS in differential dx? No CVA/TIA Diagnosis No Sepsis Present: No Sepsis Focused Exam Completed? No Progress Differential Diagnosis: asthma, bronchitis, CHF, COPD Plan of Care: Orders Procedure Date/time Status Nothing by Mouth 08/17 B Active Patient Data 08/17 1644 Active Saline Lock 08/17 312 Active Misc Message 08/17 312 Active ED Holding Orders 08/17 312 Active Admit to inpatient 08/17 312 Active Vital Signs 08/17 312 Active Code Status 08/17 312 Active Add-on Test (ER Only) 08/17 0241 Active BLOOD CULTURE 08/17 0215 Active B-TYPE NATRIURETIC PEP (BNP) 08/17 0125 Complete BLOOD CULTURE 08/17 010 Active TROPONIN LEVEL 08/17 010 Complete LIPASE 08/17 101 Complete HEPATIC FUNCTION PANEL 08/17 010 Complete D-DIMER 08/17 101 Complete CBC WITHOUT DIFFERENTIAL 08/17 101 Complete BASIC METABOLIC PANEL 08/17 101 Complete AMYLASE 08/17 101 Complete EKG 08/17 101 Active Laboratory Tests 08/17/17 0125: Anion Gap 13, Estimated GFR 36 L, BUN/Creatinine Ratio 12.1, Glucose 110 H, Calcium 9.4, Total Bilirubin 1.3, Direct Bilirubin 0.4, AST 19, ALT 24, Alkaline Phosphatase 66, Troponin I 0.07, Kpn-A-Neymxcieyif Pept 2790 H, Total Protein 5.9 L, Albumin 3.7, Amylase 98, Lipase 69, D-Dimer High Sensitivty 267 H, CBC w Diff NO MAN DIFF REQ, RBC 3.53 L, MCV 98.5 H, MCH 33.5 H, MCHC 34.0, RDW 16.9 H, MPV 9.4, Gran % 86.1 H, Lymphocytes % 4.9 L, Monocytes % 8.8, Eosinophils % 0.2, Basophils % 0, Absolute Granulocytes 9.4 H, Absolute Lymphocytes 0.5 L, Absolute Monocytes 1.0 H, Absolute Eosinophils 0, Absolute Basophils 0 Microbiology 08/17 0215 BLOOD: Blood Culture - RECD 08/17 012 BLOOD: Blood Culture - CAN Cancelled: Quantity not sufficient for Aerobic blood culture bottle. 08/17 0115 BLOOD: Blood Culture - RECD Diagnostic Imaging: Viewed by Me: Radiology Read. Discussed w/RAD: Radiology Read. CXR Impression: PATIENT: MARY FLORES PRESENT AGE: 67 PATIENT ACCOUNT NO: [id number] : 51 LOCATION: [facility] ORDERING PHYSICIAN: Jorge Cormier MD SERVICE DATE: 08/17/17 EXAM TYPE: RAD - XRY- PORTABLE CHEST XRAY EXAMINATION: XR PORTABLE CHEST CLINICAL INFORMATION: Chest pain. COMPARISON: Chest x-ray July 02, 2017, August 28, 2016 TECHNIQUE: Portable frontal view of the chest was obtained. 1:28 AM FINDINGS: There is emphysematous lucency of the upper lobes right greater than left. Is diffuse increased reticular opacities. This could be due to interstitial edema or interstitial pneumonitis. This is worse in the left upper lobe but improved in the right mid and lower lobe since the prior chest x-ray of July 02, 2017. No focal consolidation. No pleural effusion. No pneumothorax. The cardiomediastinal contours are unchanged. There are calcifications of the aortic arch. There are surgical clips at the base of the right neck. IMPRESSION: Diffuse increased interstitial lung markings. Differential diagnosis would include a cardiogenic etiology, interstitial edema, versus inflammatory or infectious. DICTATED BY: Murray Murry MD DATE/TIME DICTATED:08/17/17150 ANESTHESIOLOGISTS' ASSISTANT:CRESENCIO DATE/TIME TRANSCRIBED:08/17/17150 CONFIDENTIAL, DO NOT COPY WITHOUT APPROPRIATE AUTHORIZATION. <Electronically signed in Other Vendor System> SIGNED BY: Murray Murry MD 08/17/17 0157 Initial ED EKG: sinus tach, no acute changes Departure Departure Disposition: STILL A PATIENT Condition: Stable Clinical Impression Primary Impression: COPD exacerbation Secondary Impressions: CHF (congestive heart failure), Pneumonia Referrals: Rayray BARRIENTOS,Nacho Maldonado (PCP/Family) Departure Forms: Customer Survey General Discharge Information Comments 08/17/17, 3:38am... discussed with dr. gallardo (cards) who affirms plan for lasix and treatment for copd. no need for transfer. Critical Care Note Critical Care Note Critical Care Time: 30-74 min
[2017-08-17 01:39] LABS: ABSOLUTE BASOPHIL COUNT 0 /CUMM (0.0-0.2); ABSOLUTE EOSINOPHIL COUNT 0 /CUMM (0.0-0.7); ABSOLUTE GRANULOCYTE CT 9.4 /CUMM (1.4-6.5); ABSOLUTE LYMPH COUNT 0.5 /CUMM (1.2-3.4); BASOPHIL % 0 % (0.0-2.0); EOSINOPHIL % 0.2 % (0-5); GRANULOCYTE % 86.1 % (42.2-75.2); HEMATOCRIT 34.8 % (42-52); MEAN CORPUSCULAR HGB 33.5 PG (27.0-31.0); MEAN CORPUSCULAR VOLUME 98.5 FL (80.0-94.0); MEAN PLATELET VOLUME 9.4 FL (7.4-10.4); RBC DISTRIBUTION WIDTH 16.9 % (11.5-14.5); RED BLOOD CELL CT 3.53 /CUMM (4.70-6.10)
[2017-08-17 01:55] LABS: PLATELET COUNT 100 /CUMM (130-400); WHITE BLOOD CELL COUNT 10.9 /CUMM (4.8-10.8)
--- NOTE | 2017-08-17 01:57 | RADIOLOGY REPORT ---
EXAMINATION: XR PORTABLE CHEST CLINICAL INFORMATION: Chest pain. COMPARISON: Chest x-ray July 02, 2017, August 28, 2016 TECHNIQUE: Portable frontal view of the chest was obtained. 1:28 AM FINDINGS: There is emphysematous lucency of the upper lobes right greater than left. Is diffuse increased reticular opacities. This could be due to interstitial edema or interstitial pneumonitis. This is worse in the left upper lobe but improved in the right mid and lower lobe since the prior chest x-ray of July 02, 2017. No focal consolidation. No pleural effusion. No pneumothorax. The cardiomediastinal contours are unchanged. There are calcifications of the aortic arch. There are surgical clips at the base of the right neck. IMPRESSION: Diffuse increased interstitial lung markings. Differential diagnosis would include a cardiogenic etiology, interstitial edema, versus inflammatory or infectious.
--- NOTE | 2017-08-17 04:13 | History & Physical ---
Susana BARRIENTOS,Real 08/17/17 0411: General Information and HPI MD Statement: I have seen and personally examined MARY FLORES and documented this H&P. The patient is a 67 year old M who presented with a patient stated chief complaint of [chest pain]. Source of Information: patient Exam Limitations: no limitations History of Present Illness: 67-year-old male with past medical history of coronary artery disease status post PCI in 2013, 2016, hypertension, hyperlipidemia, peripheral artery disease, COPD on 2L/min O2, lung cancer s/p Right upper lobectomy, hepatitis C, GERD, CKD stage 3, ?DM (no meds noted in EMR), with a recent admission in April 2017, presented with worsening shortness of breath. According to the patient he has been having some sputum production, light brownish color, without much cough since a week, but since yesterday 2 PM he started feeling short of breath, and some chest tightness, at which point he called 911 and was brought into the emergency department. He denies any chest pain, palpitation, increased leg swelling, any fever/chills, abdominal pain, nausea or vomiting. He did mention that he used to have the same symptoms in the past which led him to get the stents. Of note, patient mentioned that he does not take any extra salt in his diet, and is compliant with his medication, but last Tuesday he attended a wedding veterinary receptionist where he did not control his salt intake at all. In the ED, he received IV Lasix, which immediately relieved the patient's symptoms. Allergies/Medications Allergies: Coded Allergies: amoxicillin (Severe, TROUBLE BREATHING AND RASH 08/01/15) Penicillins (UNKNOWN 08/01/15) Opioids - Morphine Analogues (SENSITIVITY 08/01/15) Uncoded Allergies: ANTIBIOTIC THAT STARTS WITH AN "A" (UNKNOWN 05/05/12) Compliance With Home Meds: GOOD Past History Travel History Traveled to [place] past 21 day No Medical History Neurological: BLE NEUROPATHY TRIGEMINAL NEURALGIA EENT: NONE Cardiovascular: CAD, diastolic CHF, hypertension, hyperlipidemia, myocardial infarction, NSTEMI, PVD, PTCA at [facility] Respiratory: bronchitis, COPD, LUNG CANCER 2006 Gastrointestinal: GERD Hepatic: cholelithiasis, hepatitis C Renal: chronic kidney disease, STAGE 3 Musculoskeletal: chronic back pain, osteoarthritis, DEGENERATIVE DISK D/O Psychiatric: anxiety Endocrine: STEROID INDUCED DM Blood Disorders: NONE Cancer(s): 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 Home Who Do You Live With? self Services at Home: Oxygen Primary Language: Kinyarwanda Smoking Status: Never Smoked ETOH Use: denies use Illicit Drug Use: denies illicit drug use Living Will? yes Functional Ability ADLs Independent: dressing, eating, toileting, bathing. Ambulation: independent IADLs Independent: shopping, housework, finances, food prep, telephone, transportation , medication admin. Review of Systems Review of Systems Constitutional: Reports: see HPI. EENTM: Reports: no symptoms. Cardiovascular: Reports: no symptoms. Respiratory: Reports: see HPI, cough, sputum production. Denies: hemoptysis, orthopnea, stridor. GI: Reports: no symptoms. Genitourinary: Reports: no symptoms. Musculoskeletal: Reports: no symptoms. Skin: Reports: no symptoms. Neurological/Psychological: Reports: no symptoms. Hematologic/Endocrine: Reports: no symptoms. All Other Systems: Reviewed and Negative Exam & Diagnostic Data Last 24 Hrs of Vital Signs/I&O Vital Signs Date Time Temp Pulse Resp B/P B/P Pulse O2 O2 Flow FiO2 Mean Ox Delivery Rate 08/17 0240 98.2 98 18 127/58 95 Nasal 2.0L Cannula 08/17 0118 95 Nasal 2.0L Cannula 08/17 0107 93 Nasal 2.0L Cannula 08/17 0102 98.5 113 18 181/81 93 Nasal 3.0L Cannula Intake & Output 08/17 0800 08/17 0000 08/16 1600 Intake Total Output Total Balance Patient 70.307 kg Weight Weight Reported by Patient Measurement Method Physical Exam General Appearance Alert, Oriented X3, Cooperative, No Acute Distress, overweight Skin No Rashes, No Breakdown, No Significant Lesion Skin Temp/Moisture Exam: Warm/Dry Sepsis Skin Exam (color): Normal for Ethnicity HEENT Atraumatic, PERRLA, EOMI, Mucous Membr. moist/pink Neck Supple, No JVD Lymphatic Cervical nl Cardiovascular Regular Rate, Normal S1, Normal S2 Lungs b/l wheeze heard, not in resp distress Abdomen Normal Bowel Sounds, Soft, No Tenderness Neurological grossly intact Extremities No Clubbing, No Cyanosis, b/l pedal edema+ Vascular Normal Pulses, Pulses Symmetrical Sepsis Peripheral Pulse Location: Radial Sepsis Peripheral Pulse Exam: Normal Sepsis Cap Refill Exam: <2 Sec Last 24 Hrs of Labs/Leonel: Laboratory Tests 08/17/17124: Anion Gap 13, Estimated GFR 36 L, BUN/Creatinine Ratio 12.1, Glucose 110 H, Calcium 9.4, Total Bilirubin 1.3, Direct Bilirubin 0.4, AST 19, ALT 24, Alkaline Phosphatase 66, Troponin I 0.07, Kho-Y-Ylhynihqjel Pept 2790 H, Total Protein 5.9 L, Albumin 3.7, Amylase 98, Lipase 69, D-Dimer High Sensitivty 267 H, CBC w Diff NO MAN DIFF REQ, RBC 3.53 L, MCV 98.5 H, MCH 33.5 H, MCHC 34.0, RDW 16.9 H, MPV 9.4, Gran % 86.1 H, Lymphocytes % 4.9 L, Monocytes % 8.8, Eosinophils % 0.2, Basophils % 0, Absolute Granulocytes 9.4 H, Absolute Lymphocytes 0.5 L, Absolute Monocytes 1.0 H, Absolute Eosinophils 0, Absolute Basophils 0 Microbiology 08/17 0215 BLOOD: Blood Culture - RECD 08/18 119 BLOOD: Blood Culture - CAN Cancelled: Quantity not sufficient for Aerobic blood culture bottle. 08/175 BLOOD: Blood Culture - RECD Diagnostic Data EKG Results no acute ischemic findings noted, sinus tachycardia CXR Results IMPRESSION: Diffuse increased interstitial lung markings. Differential diagnosis would include a cardiogenic etiology, interstitial edema, versus inflammatory or infectious. DICTATED BY: Murray Murry MD DATE/TIME DICTATED:08/17/17150 TELEMETRY MONITOR:CRESENCIO DATE/TIME TRANSCRIBED:08/17/17150 Assessment/Plan Assessment: 67-year-old male with past medical history of coronary artery disease status post PCI in 2013, 2017, hypertension, hyperlipidemia, peripheral artery disease, COPD on 2L/min O2, lung cancer s/p Right upper lobectomy, hepatitis C, GERD, CKD stage 3, ?DM (no meds noted in EMR), with a recent admission in April 2017, presented with worsening shortness of breath. In the ED, he received IV Lasix, which immediately relieved the patient's symptoms. VS on presentation: high BP (181/81-->127/58), tachycardia 113, rest WNL with O2 via NC @3L/min. at the time of examination, he could speak in full sentences, was not seen to be in respiratory distress, was still on nasal cannula, and had bilateral wheezing over lung campa, JVD was not appreciated, moist mucosa. CXR suggestive of interstitial edema. Labs as mentioned above. BNP 2790. Patient is currently being admitted in the telemetry unit for management of following issues: #Acute on chronic hypoxic respiratory failure, 2/2 CHF exacerbation Patient's clinical scenario, along with imaging is suggestive of CHF exacerbation, and he did benefit from IV Lasix. * Admitted to telemetry floor * Monitor vitals, cardiac rate/rhythm * Oxygen, TRC/nebs * IV Lasix already given for the day, will continue patient's home dose of Lasix (meds rconcile needs to be done, as the pharmacy was closed at the time of admission) * Further Lasix dose to be determined upon follow up in the morning * Cardiology consultation to be placed * Blood culture, and LRC ordered #Home meds reconciled as much as possible overnight, but pharmacy was closed at the time of admission. #Housekeeping: Diet: NPO (given initial resp distress), need to reassess DVT ppx: SQ Heparin, ALPS code status: Full code As Ranked By This Provider Problem List: 1. CHF exacerbation Core Measures/Misc (12/12) Acute Coronary Syndrome ACS Diagnosis: No Congestive Heart Failure Congestive Heart Failure Diagnosis Yes Last Known EF % 50 Comment on acei Cerebrovascular Accident CVA/TIA Diagnosis: No VTE (View Protocol) VTE Risk Factors Age>40 No Mechanical VTE Prophylaxis d/t N/A MechProphylax Ordered No VTE Pharm Prophylaxis d/t NA PharmProphylax ordered Sepsis (View protocol) Sepsis Present: No If YES complete Sepsis Event Note If YES complete Sepsis Event Note Radha Seymour 08/17/17 0606: General Information and HPI Allergies/Medications Home Med list Aclidinium Bynum (Tudorza Pressair) 400 MCG/ACTUATION AER.POW.BA 1 PUFF PO BID BREATHING PROBLEMS (Reported) Albuterol Sulfate (Proair Hfa) 90 MCG HFA.AER.AD 2 PUF INH Q4-6 PRN PRN SHORTNESS OF BREATH (Reported) Allopurinol 100 MG TABLET 1 TAB PO DAILY . (Reported) Aspirin (Ecotrin*) 81 MG TABLET.DR 1 TAB PO DAILY HEART HEALTH (Reported) Carvedilol 25 MG TABLET 0.5 TAB PO BID HEART (Reported) Cholecalciferol (Vitamin D3) 1,000 UNIT TABLET 1 TAB PO DAILY VITAMIN SUPPORT (Reported) Ferrous Sulfate 325 MG (65 MG IRON) TABLET 1 TAB PO DAILY SUPPLEMENT ( Reported) Fluticasone/Salmeterol (Advair 250-50 Diskus) 250 MCG-50 MCG/DOSE BLST.W.DEV 1 PUF INH BID BREATHING PROBLEMS (Reported) Furosemide (Lasix) 40 MG TABLET 40 MG PO 7:30AM Fluid Isosorbide Mononitrate (Isosorbide Mononitrate ER) 30 MG TAB.ER.24H 1 TAB PO DAILY HEART (Reported) LORazepam (Ativan) 1 MG TABLET 1 TAB PO BID PRN anxiety (Reported) Omeprazole 40 MG CAPSULE.DR 1 CAP PO DAILY ACID REFLUX (Reported) Ondansetron (Zofran Odt) 4 MG TAB.RAPDIS 1 TAB SL TID PRN NAUSEA Potassium Chloride (Klor-Con M20) 20 MEQ TAB.ER.PRT 1 TAB PO BID SUPPLEMENT ( Reported) Ranolazine (Ranexa) 500 MG TAB.ER.12H 1 TAB PO BID . (Reported) Rosuvastatin Calcium (Crestor) 40 MG TABLET 1 TAB PO DAILY CHOLESTEROL ( Reported) Ticagrelor (Brilinta) 90 MG TABLET 90 MG PO BID CAD Valsartan (Diovan) 80 MG TABLET 1 TAB PO DAILY HEART (Reported) Core Measures/Misc (12/12) Sepsis (View protocol) If YES complete Sepsis Event Note If YES complete Sepsis Event Note Attending MD Review Statement Attending Statement Attending MD Statement: examined this patient, discuss w/resident/PA/HEAT TREAT TECHNICIAN, agreed w/resident/PA/HEAT TREAT TECHNICIAN, reviewed EMR data (avail), reviewed images, amended to note Attending Assessment/Plan: CC: Shortness of breath PMH: COPD on 2 L of oxygen at home, PAD s/p stents bilat LE, coronary artery disease status post PCI to the circumflex in November 2013, DUNIA to the LAD September 2016, and repeat catheterization 03/11/2017 with PCI to the LAD with a drug- eluting stent, PCI to diagonal branch on June 06, 2017, CEA Right and restenosis, hypertension, hyperlipidemia, lung cancer s/p surgery and chemo in 2005, hepatitis C, GERD, CKD stage III, diabetes Patient is very good historian. He states that this happens to him every time when he gets congestive heart failure. This has happened to 3 times so far. He gets up in the middle of the night gasping for air, severely short of breath. The same thing happened tonight. He woke up with an inability to breathe, chest tightness and pain, wheezing. Because of his previous experience of BiPAP he wanted to come in early on to avoid any further complication. Last 7 days he was noticing increased phlegm production but denies any cough, chest pain, chest tightness, wheezing. He had some upper respiratory symptoms but they improved. No fever or chills at home. He is usually very cautious regarding his salt intake but over the weekend he attended a wedding where he could not watch his salt. He weighs himself daily and sees variation of 325 pounds. He has lost 30 pounds since last 6-8 months, unintentional. Patient is very well versed with his medical condition. Patient states that he felt immediate relief after IV Lasix in ER and currently does not have any symptoms. Vitals: Temperature 98.5, pulse 113, RR 18, blood pressure 181/81 on arrival improved to 127/58, saturating 93% on 2 L nasal cannula On exam: A O 3, cooperative, no acute distress, neck supple, JVD normal, no lymphadenopathy, mucosa moist, no focal neurological deficit, +1 leg edema right lower extremity is bigger than left, no obvious skin rashes or inflammation CVS: S1-S2, RRR. RS: Fine crackles in bases. Abdomen: Soft, NT, ND, bowel sounds present. CXR: Diffuse increased interstitial lung markings. Differential diagnosis would include a cardiogenic etiology, interstitial edema, versus inflammatory or infectious. Assessment and plan 67-year-old male with multiple comorbidities and extensive past medical history as mentioned above presented in ER for acute worsening of shortness of breath that woke him up from sleep. He was gasping for air, associated wheezing, chest tightness and he had to call 911. His symptoms improved after IV Lasix. He states that every time it happens the similar way, symptoms appear more like PND. Currently asymptomatic. We will rule out acute coronary syndrome causing flash pulmonary edema, will get cardiology involved. Does not appear to be COPD or pneumonia. We will hold off any antibiotics or steroid treatment. + Acute on chronic heart failure, suspected flash pulmonary edema : Rule out acute coronary syndrome + History of COPD, PAD, CAD, HTN, HLD, lung cancer status post surgery, CKD, DM - Admit to telemetry - Continuous telemetry monitoring - Serial troponin and ECGs - Reevaluate for IV Lasix in a.m. but for now Continue home doses of by mouth Lasix - Cardiology consult - Continue all his home medications - When necessary nebulizations - DVT prophylaxis - Outpatient sleep study - Serial troponin and ECGs - Reevaluate for IV Lasix in a.m. but for now Continue home doses of by mouth Lasix - Cardiology consult - Continue all his home medications - When necessary nebulizations - DVT prophylaxis - Outpatient sleep study
[2017-08-17] MEDS ORDERED: RANEXA500 M1 PO (05:18)
[2017-08-17] MEDS ORDERED: ALLOPURINOL100 M1 PO (05:19)
[2017-08-17] MEDS ORDERED: LORAZEPAM1 M1 PO (05:21)
[2017-08-17] MEDS ORDERED: LASIX40 M1 PO (05:23)
--- NOTE | 2017-08-17 06:07 | Admission Certification ---
Admission Certification Certification Statement - As attending physician, I certify that at the time of - admission, based on clinical presentation, severity of - symptoms, need for further diagnostic testing and - therapeutic interventions, and risk of adverse outcomes - without in-hospital treatment, in my clinical assessment, - this patient requires an acute hospital stay for a minimum - of two nights or longer. I have also considered psychsocial - factors such as support system, advanced age, financial - issues, cognitive issues, and failed out-patient treatments, - past re-admission history, safety of patient, and lack of - compliance as applicable. Specific rationale supporting this admission is: Acute on chronic heart failure
--- NOTE | 2017-08-17 07:43 | PN- Housestaff ---
Ena Amezquita 08/17/17 0743: Subjective Follow-up For: CHEST PAIN Complaints: no complaints Subjective: I have seen and examined the patient today morning. no new complaints. Review of Systems Constitutional: Reports: see HPI. Objective Last 24 Hrs of Vital Signs/I&O Vital Signs Date Time Temp Pulse Resp B/P B/P Pulse O2 O2 Flow FiO2 Mean Ox Delivery Rate 08/17 1600 97 Nasal 2.0L Cannula 08/17 1500 97.7 74 20 110/60 96 08/17 1423 95 Nasal 2.0L Cannula 08/17 1228 97.4 77 16 104/51 97 Room Air 08/17 1130 Nasal 2.0L Cannula 08/17 1024 97.2 81 18 114/53 95 Nasal 2.0L Cannula 08/17 0852 96 Nasal 2.0L Cannula 08/17 0846 96 Nasal 2.0L Cannula 08/17 0841 97.9 82 20 119/58 96 Nasal 2.0L Cannula 08/17 0737 97.1 82 18 119/58 96 Nasal 2.0L Cannula 08/17 0734 96 Nasal Cannula 08/17 0617 98.4 82 18 128/48 98 Room Air 08/17 0416 98.0 86 18 132/60 98 Nasal 2.0L Cannula 08/17 0240 98.2 98 18 127/58 95 Nasal 2.0L Cannula 08/17 0118 95 Nasal 2.0L Cannula 08/17 0107 93 Nasal 2.0L Cannula 08/17 0102 98.5 113 18 181/81 93 Nasal 3.0L Cannula Intake & Output 08/17 1600 08/17 0800 08/17 0000 Intake Total 240 100 Output Total 800 Balance 240 -700 Intake, IV 100 Intake, Oral 240 Output, Urine 800 Patient 69.853 kg 70.307 kg Weight Weight Bed scale Reported by Patient Measurement Method Physical Exam General Appearance: Alert, Oriented X3, Cooperative, No Acute Distress Skin: No Rashes, No Breakdown, No Significant Lesion Skin Temp/Moisture Exam: Warm/Dry Cardiovascular: Normal S1, Normal S2, No Murmurs Lungs: Clear to Auscultation, Normal Air Movement Abdomen: Normal Bowel Sounds, Soft, No Tenderness Neurological: Normal Tone, Sensation Intact, Cranial Nerves 3-12 NL Extremities: No Clubbing, No Cyanosis, No Edema, Normal Pulses Vascular: Normal Pulses Current Medications: Current Medications Sig/Carlito Start time Last Medication Dose Route Stop Time Status Admin Acetaminophen 650 MG Q6P PRN 08/17 1730 AC 08/17 PO 1720 Acetaminophen 325 MG Q6P PRN 08/17 1630 DC 08/17 PO 1712 Albuterol Sulfate 3 ML BID 08/17 2100 AC 08/17 INH 1418 Albuterol Sulfate 3 ML ONCE ONE 08/17 0115 DC 08/17 INH 08/17 0116 0117 Allopurinol 100 MG DAILY 08/17 0900 AC 08/17 PO 0912 Aspirin Buffered 81 MG DAILY 08/17 0900 AC 08/17 PO 0912 Atorvastatin Calcium 80 MG 1700 08/17 1700 AC 08/17 PO 1554 Azithromycin 500 MG DAILY 08/17 1427 AC 08/17 Sodium Chloride 250 ML IV 1554 Carvedilol 12.5 MG BID 08/17 0900 AC 08/17 PO 0912 Clindamycin 600 MG ONCE ONE 08/17 0300 DC 08/17 Dextrose/Water 50 ML IV 08/17 0329 0313 Furosemide 60 MG DAILY 08/18 0900 AC PO Furosemide 0 .STK-MED ONE 08/17 0312 DC IV Furosemide 40 MG ONCE ONE 08/17 0300 DC 08/17 IV 08/17 0301 0313 Heparin Sodium 0 .STK-MED ONE 08/17 0621 DC (Porcine) .ROUTE Heparin Sodium 5,000 UNIT Q8 08/17 06 AC 08/17 (Porcine) SC 1444 Ipratropium [place] 2.5 ML ONCE ONE 08/17 0115 DC 08/17 INH 08/17 011 0117 Isosorbide 30 MG DAILY 08/17 0900 AC 08/17 Mononitrate PO 0914 Lorazepam 1 MG BID PRN 08/17 1630 AC PO Losartan Potassium 25 MG DAILY 08/17 0900 AC 08/17 PO 0912 Methylprednisolone 0 .STK-MED ONE 08/17 0118 DC .ROUTE Methylprednisolone 125 MG ONCE ONE 08/17 0115 DC 08/17 IV 08/17 011 0113 Omeprazole 0 .STK-MED ONE 08/17 0729 DC PO Omeprazole 40 MG DAILY AC 08/17 0700 AC 08/17 PO 0721 Potassium Chloride 0 .STK-MED ONE 08/17 1043 DC PO Potassium Chloride 60 MEQ ONCE ONE 08/17 1030 DC 08/17 PO 08/17 1031 1041 Ranolazine 500 MG BID 08/17 899 AC 08/17 PO 0912 Ticagrelor 90 MG BID 08/17 09 AC 08/17 PO 0914 Last 24 Hrs of Lab/Leonel Results Last 24 Hrs of Labs/Mics: Laboratory Tests 08/17/17 0730: Troponin I Cancelled 08/17/17 0630: Anion Gap 14, Estimated GFR 36 L, BUN/Creatinine Ratio 12.6, Hemoglobin A1c 5.7 , Troponin I 0.07, CBC w Diff NO MAN DIFF REQ, RBC 3.61 L, MCV 99.7 H, MCH 32.9 H, MCHC 33.0, RDW 17.4 H, MPV 9.6, Gran % 95.1 H, Lymphocytes % 3.8 L, Monocytes % 1.0 L, Eosinophils % 0.1, Basophils % 0, Absolute Granulocytes 9.8 H, Absolute Lymphocytes 0.4 L, Absolute Monocytes 0.1, Absolute Eosinophils 0, Absolute Basophils 0 08/17/17 0125: Anion Gap 13, Estimated GFR 36 L, BUN/Creatinine Ratio 12.1, Glucose 110 H, Calcium 9.4, Total Bilirubin 1.3, Direct Bilirubin 0.4, AST 19, ALT 24, Alkaline Phosphatase 66, Troponin I 0.07, [id number]-E-Rfxjqokqecx Pept 2790 H, Total Protein 5.9 L, Albumin 3.7, Amylase 98, Lipase 69, D-Dimer High Sensitivty 267 H, CBC w Diff NO MAN DIFF REQ, RBC 3.53 L, MCV 98.5 H, MCH 33.5 H, MCHC 34.0, RDW 16.9 H, MPV 9.4, Gran % 86.1 H, Lymphocytes % 4.9 L, Monocytes % 8.8, Eosinophils % 0.2, Basophils % 0, Absolute Granulocytes 9.4 H, Absolute Lymphocytes 0.5 L, Absolute Monocytes 1.0 H, Absolute Eosinophils 0, Absolute Basophils 0 Microbiology 08/17 1630 LOWER RESP: Respiratory Culture - RECD 08/17 1630 LOWER RESP: Gram Stain - RECD 08/17 0215 BLOOD: Blood Culture - RECD 08/17 0120 BLOOD: Blood Culture - CAN Cancelled: Quantity not sufficient for Aerobic blood culture bottle. 08/17 0115 BLOOD: Blood Culture - RECD Lines/Diet/Fluids Restraints: none Assessment/Plan Assessment: This is a 67-year-old male with past medical history of coronary artery disease status post PCI in 2013, 2016, hypertension, hyperlipidemia, peripheral artery disease, COPD on 2L/min O2, lung cancer s/p Right upper lobectomy, hepatitis C, GERD, CKD stage 3, ?DM (no meds noted in EMR), with a recent admission in April 2017, presented with worsening shortness of breath. Patient was admitted to the telemetry unit for management of following issues: #Acute on chronic hypoxic respiratory failure, 2/2 CHF exacerbation Patient's clinical scenario, along with imaging is suggestive of CHF exacerbation, and he did benefit from IV Lasix. * ct to monitor on telemetry. * Monitor vitals, cardiac rate/rhythm. * Oxygen, TRC/nebs * IV Lasix 40 given yday, will increase the po dose to 60 mg per cardio. * Cardiology consultation to be placed * Blood culture, and LRC ordered. # Possible bronchitis * Azithromycin iv started today - day 1 #Oxygen dependent COPD * ct to maintain o2 sat > 92% #Acute on chronic heart failure with preserved ejection fraction * ct home meds. #Chronic renal insufficiency #History of lung CA with prior lobectomy #Hypertension/hyperlipidemia #Chronic coronary artery disease status post multiple stents with known chronic RCA occlusion. * He had stenting of the left circumflex in November 2013, stent to the LAD in September 2016, PCI the LAD in February 2017, and PCI of the diagonal branch on June 06, 2017. DVT ppx: SQ Heparin, ALPS code status: Full code Problem List: 1. CHF exacerbation 2. COPD exacerbation 3. Renal failure 4. CHF (congestive heart failure) 5. ACS (acute coronary syndrome) Pain Ratin Pain Location: .. Pain Goal: Remain pain free Pain Plan: ct current plan Tomorrow's Labs & Rationales: ordered Chloé Churchill 08/17/17 1214: Attending MD Review Statement Attending Statement Attending MD Statement: examined this patient, discuss w/resident/PA/TECHNICAL SUPPORT COORDINATOR, agreed w/resident/PA/TECHNICAL SUPPORT COORDINATOR, discussed with family, reviewed EMR data (avail), discussed with nursing, discussed with case mgmt, reviewed images, amended to note Attending Assessment/Plan: 67 o/m pmh of copd/ckd/copd on home oxygen/lung cancer s/p lobectomy/ hypertension/hyperlipidemia/cad with stent in past comes with Shortness of breath likely multifactorial from Possible bronchitis and Acute on chronic heart failure with preserved ejection fraction with mild fluid overlaod. Received iv lasix and iv solu-medrol in ER. PE no use of accessory muscles. PROBNP 2790. Patient admitted to telemetry. Serial cardiac enzymes negative. Increase lasix 60 mg as per cardiology. Add azithromycin to his current meds. gi/dvt prophylaxis full code.
[2017-08-17 07:49] LABS: ABSOLUTE BASOPHIL COUNT 0 /CUMM (0.0-0.2); ABSOLUTE EOSINOPHIL COUNT 0 /CUMM (0.0-0.7); ABSOLUTE GRANULOCYTE CT 9.8 /CUMM (1.4-6.5); ABSOLUTE LYMPH COUNT 0.4 /CUMM (1.2-3.4); ABSOLUTE MONOCYTE COUNT 0.1 /CUMM (0.10-0.60); BASOPHIL % 0 % (0.0-2.0); EOSINOPHIL % 0.1 % (0-5); MEAN CORPUSCULAR HGB 32.9 PG (27.0-31.0); MEAN CORPUSCULAR VOLUME 99.7 FL (80.0-94.0); MEAN PLATELET VOLUME 9.6 FL (7.4-10.4); PLATELET COUNT 103 /CUMM (130-400); RBC DISTRIBUTION WIDTH 17.4 % (11.5-14.5); RED BLOOD CELL CT 3.61 /CUMM (4.70-6.10); WHITE BLOOD CELL COUNT 10.3 /CUMM (4.8-10.8)
[2017-08-17 08:26] LABS: GRANULOCYTE % 95.1 % (42.2-75.2)
[2017-08-17 08:41] VITALS: BP 119/58
--- NOTE | 2017-08-17 11:20 | Cons- Cardiology ---
General Information and HPI Consulting Request Date of Consult: 08/17/17 Requested By: Radha Seymour MD Reason for Consult: Shortness of breath Source of Information: patient, old records History of Present Illness: This is a 67-year-old male who is well-known to me; he has a history of CAD status post multiple stents with known chronic RCA occlusion. He had stenting of the left circumflex in November 2013, stent to the LAD in September 2016, PCI the LAD in February 2017, and PCI of the diagonal branch on June 06, 2017. He also has oxygen dependent COPD, prior lung cancer status post lobectomy, chronic angina, chronic renal insufficiency, heart failure with preserved ejection fraction, hypertension, and hyperlipidemia. He presents to with a chief complaint of cough productive of light brown sputum as well as associated shortness of breath without significant palpitations or chest discomfort. Denies increasing lower extremity edema or worsening orthopnea; he does report intermittent PND. He does think he had a subjective fever but did not check his temperature. Denies headache, slurring of speech, syncope, or visual changes. He reports compliance with his medications. Allergies/Medications Allergies: Coded Allergies: amoxicillin (Severe, TROUBLE BREATHING AND RASH 08/01/15) Penicillins (UNKNOWN 08/01/15) Opioids - Morphine Analogues (SENSITIVITY 08/01/15) Uncoded Allergies: ANTIBIOTIC THAT STARTS WITH AN "A" (UNKNOWN 05/05/12) Home Med List: Aclidinium [place] (Tudorza Pressair) 400 MCG/ACTUATION AER.POW.BA 1 PUFF PO BID BREATHING PROBLEMS (Reported) Albuterol Sulfate (Proair Hfa) 90 MCG HFA.AER.AD 2 PUF INH Q4-6 PRN PRN SHORTNESS OF BREATH (Reported) Allopurinol 100 MG TABLET 1 TAB PO DAILY . (Reported) Aspirin (Ecotrin*) 81 MG TABLET.DR 1 TAB PO DAILY HEART HEALTH (Reported) Carvedilol 25 MG TABLET 0.5 TAB PO BID HEART (Reported) Cholecalciferol (Vitamin D3) 1,000 UNIT TABLET 1 TAB PO DAILY VITAMIN SUPPORT (Reported) Ferrous Sulfate 325 MG (65 MG IRON) TABLET 1 TAB PO DAILY SUPPLEMENT ( Reported) Fluticasone/Salmeterol (Advair 250-50 Diskus) 250 MCG-50 MCG/DOSE BLST.W.DEV 1 PUF INH BID BREATHING PROBLEMS (Reported) Furosemide (Lasix) 40 MG TABLET 40 MG PO 7:30AM Fluid Isosorbide Mononitrate (Isosorbide Mononitrate ER) 30 MG TAB.ER.24H 1 TAB PO DAILY HEART (Reported) LORazepam (Ativan) 1 MG TABLET 1 TAB PO BID PRN anxiety (Reported) Omeprazole 40 MG CAPSULE.DR 1 CAP PO DAILY ACID REFLUX (Reported) Ondansetron (Zofran Odt) 4 MG TAB.RAPDIS 1 TAB SL TID PRN NAUSEA Potassium Chloride (Klor-Con M20) 20 MEQ TAB.ER.PRT 1 TAB PO BID SUPPLEMENT ( Reported) Ranolazine (Ranexa) 500 MG TAB.ER.12H 1 TAB PO BID . (Reported) Rosuvastatin Calcium (Crestor) 40 MG TABLET 1 TAB PO DAILY CHOLESTEROL ( Reported) Ticagrelor (Brilinta) 90 MG TABLET 90 MG PO BID CAD Valsartan (Diovan) 80 MG TABLET 1 TAB PO DAILY HEART (Reported) Current Medications: Current Medications Sig/Carlito Start time Last Medication Dose Route Stop Time Status Admin Albuterol Sulfate 3 ML ONCE ONE 08/17 011 DC 08/17 INH 08/17 011 0117 Allopurinol 100 MG DAILY 08/17 09 AC 08/17 PO 0912 Aspirin Buffered 81 MG DAILY 08/17 09 AC 08/17 PO 0912 Atorvastatin Calcium 80 MG 1700 08/17 1700 AC PO Carvedilol 12.5 MG BID 08/17 09 AC 08/17 PO 0912 Clindamycin 600 MG ONCE ONE 08/17 0300 LA 08/17 Dextrose/Water 50 ML IV 08/17 0329 0313 Furosemide 0 .STK-MED ONE 08/17 0312 DC IV Furosemide 40 MG ONCE ONE 08/17 0300 DC 08/17 IV 08/17 0301 0313 Heparin Sodium 0 .STK-MED ONE 08/17 0621 DC (Porcine) .ROUTE Heparin Sodium 5,000 UNIT Q8 08/17 06 AC 08/17 (Porcine) SC 0619 Ipratropium [place] 2.5 ML ONCE ONE 08/17 0115 DC 08/17 INH 08/17 011 0117 Isosorbide 30 MG DAILY 08/17 899 AC 08/17 Mononitrate PO 0914 Losartan Potassium 25 MG DAILY 08/17 0900 AC 08/17 PO 0912 Methylprednisolone 0 .STK-MED ONE 08/17 0118 DC .ROUTE Methylprednisolone 125 MG ONCE ONE 08/17 0115 DC 08/17 IV 08/17 0116 0113 Omeprazole 0 .STK-MED ONE 08/17 0729 DC PO Omeprazole 40 MG DAILY AC 08/17 0700 AC 08/17 PO 0721 Potassium Chloride 0 .STK-MED ONE 08/17 1043 DC PO Potassium Chloride 60 MEQ ONCE ONE 08/17 1030 DC 08/17 PO 08/17 1031 1041 Ranolazine 500 MG BID 08/17 09 AC 08/17 PO 0912 Ticagrelor 90 MG BID 08/17 09 AC 08/17 PO 0914 Review of Systems Review of Systems: Review of systems as per HPI. The remainder of a 10 point review of systems was reviewed and was otherwise negative. 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 Home Who Do You Live With? self Services at Home: Oxygen Primary Language: Lithuanian Smoking Status: Never Smoked ETOH Use: denies use Illicit Drug Use: denies illicit drug use Living Will? yes Functional Ability ADLs Independent: dressing, eating, toileting, bathing. Ambulation: independent IADLs Independent: shopping, housework, finances, food prep, telephone, transportation , medication admin. Exam & Diagnostic Data Vital Signs and I&O Vital Signs Date Time Temp Pulse Resp B/P B/P Pulse O2 O2 Flow FiO2 Mean Ox Delivery Rate 08/17 1024 97.2 81 18 114/53 95 Nasal 2.0L Cannula 05/23 0852 96 Nasal 2.0L Cannula 08/17 0846 96 Nasal 2.0L Cannula 08/17 0841 97.9 82 20 119/58 96 Nasal 2.0L Cannula 08/17 0737 97.1 82 18 119/58 96 Nasal 2.0L Cannula 08/17 0734 96 Nasal Cannula 08/17 0617 98.4 82 18 128/48 98 Room Air 08/17 0416 98.0 86 18 132/60 98 Nasal 2.0L Cannula 08/17 0240 98.2 98 18 127/58 95 Nasal 2.0L Cannula 08/17 0118 95 Nasal 2.0L Cannula 08/17 0107 93 Nasal 2.0L Cannula 08/17 0102 98.5 113 18 181/81 93 Nasal 3.0L Cannula Intake & Output 08/17 1600 08/17 0800 08/17 0000 08/16 1600 08/16 0800 08/16 0000 Intake Total 60 100 Output Total 800 Balance 60 -700 Intake, IV 100 Intake, Oral 60 Output, Urine 800 Patient 155 lb 155 lb Weight Weight Reported by Patient Measurement Method Physical Exam: General: no apparent distress. Alert. On nasal cannula Eyes: No obvious scleral icterus. HEENT: No jugular venous distention or abnormal jugular venous pulsations. Cardiovascular: Normal intensity S1/S2. PMI not grossly displaced. Respiratory: Lungs clear to auscultation bilaterally. Abdomen: Soft, nontender with no guarding or rebound tenderness. Musculoskeletal: No clubbing or cyanosis noted; no edema Skin: warm Neurologic: No gross focal deficits noted. Lymph: No gross lymphadenopathy. Labs/Leonel Results: Laboratory Tests 08/17 08/17 0730 0630 Chemistry Sodium (137 - 145 mmol/L) 143 Potassium (3.5 - 5.1 mmol/L) 3.3 L Chloride (98 - 107 mmol/L) 102 Carbon Dioxide (22 - 30 mmol/L) 26 Anion Gap (5 - 16) 14 BUN (9 - 20 mg/dL) 24 H Creatinine (0.7 - 1.2 mg/dL) 1.9 H Estimated GFR (>60 ml/min) 36 L BUN/Creatinine Ratio (7 - 25 %) 12.6 Hemoglobin A1c (4.2 - 5.8 %) 5.7 Troponin I (<0.11 ng/ml) Cancelled 0.07 Hematology CBC w Diff NO MAN DIFF REQ WBC (4.8 - 10.8 /CUMM) 10.3 RBC (4.70 - 6.10 /CUMM) 3.61 L Hgb (14.0 - 18.0 G/DL) 11.9 L Hct (42 - 52 %) 36.0 L MCV (80.0 - 94.0 FL) 99.7 H MCH (27.0 - 31.0 PG) 32.9 H MCHC (33.0 - 37.0 G/DL) 33.0 RDW (11.5 - 14.5 %) 17.4 H Plt Count (130 - 400 /CUMM) 103 L MPV (7.4 - 10.4 FL) 9.6 Gran % (42.2 - 75.2 %) 95.1 H Lymphocytes % (20.5 - 51.1 %) 3.8 L Monocytes % (1.7 - 9.3 %) 1.0 L Eosinophils % (0 - 5 %) 0.1 Basophils % (0.0 - 2.0 %) 0 Absolute Granulocytes (1.4 - 6.5 /CUMM) 9.8 H Absolute Lymphocytes (1.2 - 3.4 /CUMM) 0.4 L Absolute Monocytes (0.10 - 0.60 /CUMM) 0.1 Absolute Eosinophils (0.0 - 0.7 /CUMM) 0 Absolute Basophils (0.0 - 0.2 /CUMM) 0 05/23 0125 Chemistry Sodium (137 - 145 mmol/L) 142 Potassium (3.5 - 5.1 mmol/L) 3.7 Chloride (98 - 107 mmol/L) 103 Carbon Dioxide (22 - 30 mmol/L) 26 Anion Gap (5 - 16) 13 BUN (9 - 20 mg/dL) 23 H Creatinine (0.7 - 1.2 mg/dL) 1.9 H Estimated GFR (>60 ml/min) 36 L BUN/Creatinine Ratio (7 - 25 %) 12.1 Glucose (65 - 99 mg/dL) 110 H Calcium (8.4 - 10.2 mg/dL) 9.4 Total Bilirubin (0.2 - 1.3 mg/dL) 1.3 Direct Bilirubin (< 0.4 mg/dL) 0.4 AST (17 - 59 U/L) 19 ALT (21 - 72 U/L) 24 Alkaline Phosphatase (< 127 U/L) 66 Troponin I (<0.11 ng/ml) 0.07 [id number]-A-Ljrmuqneiiz Pept (<125 pg/mL) 2790 H Total Protein (6.3 - 8.2 g/dL) 5.9 L Albumin (3.5 - 5.0 g/dL) 3.7 Amylase (30 - 110 U/L) 98 Lipase (23 - 300 U/L) 69 Coagulation D-Dimer High Sensitivty (0 - 243 ng/ml) 267 H Hematology CBC w Diff NO MAN DIFF REQ WBC (4.8 - 10.8 /CUMM) 10.9 H RBC (4.70 - 6.10 /CUMM) 3.53 L Hgb (14.0 - 18.0 G/DL) 11.8 L Hct (42 - 52 %) 34.8 L MCV (80.0 - 94.0 FL) 98.5 H MCH (27.0 - 31.0 PG) 33.5 H MCHC (33.0 - 37.0 G/DL) 34.0 RDW (11.5 - 14.5 %) 16.9 H Plt Count (130 - 400 /CUMM) 100 L MPV (7.4 - 10.4 FL) 9.4 Gran % (42.2 - 75.2 %) 86.1 H Lymphocytes % (20.5 - 51.1 %) 4.9 L Monocytes % (1.7 - 9.3 %) 8.8 Eosinophils % (0 - 5 %) 0.2 Basophils % (0.0 - 2.0 %) 0 Absolute Granulocytes (1.4 - 6.5 /CUMM) 9.4 H Absolute Lymphocytes (1.2 - 3.4 /CUMM) 0.5 L Absolute Monocytes (0.10 - 0.60 /CUMM) 1.0 H Absolute Eosinophils (0.0 - 0.7 /CUMM) 0 Absolute Basophils (0.0 - 0.2 /CUMM) 0 Diagnostic Data EKG Results Tracing was personally reviewed and shows sinus rhythm with borderline R-wave progression and borderline T-wave abnormality CXR Results Diffuse increased interstitial lung markings. Differential diagnosis would include a cardiogenic etiology, interstitial edema, versus inflammatory or infectious. Other Results Echocardiogram from June showed grossly normal ejection fraction Assessment/Plan Assessment/Plan 1. Shortness of breath likely multifactorial 2. Possible bronchitis 3. Oxygen dependent COPD 4. Acute on chronic heart failure with preserved ejection fraction 5. Chronic renal insufficiency 6. History of lung CA with prior lobectomy 7. Hypertension/hyperlipidemia 8. Chronic coronary artery disease status post multiple stents with known chronic RCA occlusion. He had stenting of the left circumflex in November 2013, stent to the LAD in September 2016, PCI the LAD in February 2017, and PCI of the diagonal branch on June 06, 2017. The patient did report a cough productive of light brown sputum. The patient's shortness of breath was likely multifactorial. Suspect only a mild component of volume overload; he did get a dose of IV Lasix but is currently euvolemic. Can switch back to oral Lasix at slightly higher dose (60 mg PO daily) while monitoring renal function. Continue his other outpatient cardiac medications. Troponins are negative. Management of COPD/bronchitis per the medical team. Benigno Davis MD FAC Consult Acknowledgment - Thank you for your consult request.
[2017-08-17 15:00] VITALS: BP 110/60
[2017-08-17 22:44] VITALS: BP 138/60
--- NOTE | 2017-08-18 06:28 | PN- Housestaff ---
Ena Amezquita 08/18/17 0628: Subjective Follow-up For: chest pain , chf, bronchitis Complaints: no complaints Tele-Events Since Last Visit: nsr, rate of 87,bbb Subjective: I have seen and examined the patient today morning. He seems to be doing fine and does not have any active complaints. We will switch him to by mouth azithromycin today, he has walked outside and into the restroom without much complaint. He still continues to be on 2 L of oxygen however this is his baseline. We will switch him to by mouth Lasix 60 mg per cardiology and this will also be his discharge dosage. He does not have any other new complaints to offer and seems to be feeling very fine today morning. Review of Systems Constitutional: Reports: see HPI. Objective Last 24 Hrs of Vital Signs/I&O Vital Signs Date Time Temp Pulse Resp B/P B/P Pulse O2 O2 Flow FiO2 Mean Ox Delivery Rate 08/18 1111 95 Nasal 2.0L Cannula 08/18 0809 75 132/62 08/18 0809 75 132/62 08/18 0808 75 132/62 08/18 0808 75 132/75 08/18 0800 97 Nasal 2.0L Cannula 08/18 0647 97.4 73 18 132/62 97 Nasal Cannula 08/17 2244 97.4 85 18 138/60 100 Nasal 2.0L Cannula 08/17 2223 95 Nasal 2.0L Cannula 08/17 2018 84 132/70 08/17 2018 84 132/70 08/17 1953 96 Nasal 2.0L Cannula Intake & Output 08/18 1600 08/18 0800 08/18 0000 Intake Total 410 50 960 Output Total 550 600 225 Balance -140 -550 735 Intake, IV 10 250 Intake, Oral 400 50 710 Output, Urine 550 600 225 Patient 70.449 kg Weight Weight Bed scale Measurement Method Physical Exam General Appearance: Alert, Oriented X3, Cooperative, No Acute Distress Skin: No Rashes, No Breakdown, No Significant Lesion Cardiovascular: Normal S1, Normal S2, No Murmurs Lungs: Clear to Auscultation, Normal Air Movement Abdomen: Normal Bowel Sounds, Soft, No Tenderness Extremities: No Clubbing, No Cyanosis, No Edema, Normal Pulses Vascular: Normal Pulses Current Medications: Current Medications Sig/Carlito Start time Last Medication Dose Route Stop Time Status Admin Acetaminophen 650 MG Q6P PRN 08/17 1730 DCD 08/17 PO 1720 Acetaminophen 325 MG Q6P PRN 08/17 1630 DC 08/17 PO 1712 Albuterol Sulfate 3 ML BID 08/17 2100 DCD 08/18 INH 1106 Allopurinol 100 MG DAILY 08/17 0900 DCD 08/18 PO 0809 Aspirin Buffered 81 MG DAILY 08/17 0900 DCD 08/18 PO 0809 Atorvastatin Calcium 80 MG 1700 08/17 1700 DCD 08/17 PO 1554 Azithromycin 250 MG DAILY 08/18 1001 DCD 08/18 PO 08/19 0901 1128 Azithromycin 500 MG DAILY 08/17 1427 DC 08/17 Sodium Chloride 250 ML IV 1554 Carvedilol 12.5 MG BID 08/17 09 DCD 08/18 PO 0809 Furosemide 60 MG DAILY 08/18 0900 DCD 08/18 PO 0809 Heparin Sodium 5,000 UNIT Q8 08/17 06 DCD 08/18 (Porcine) SC 0555 Isosorbide 60 MG DAILY 08/18 09 DCD 08/18 Mononitrate PO 0808 Isosorbide 30 MG DAILY 08/17 0900 DC 08/17 Mononitrate PO 0914 Lorazepam 1 MG BID PRN 08/17 1630 DCD 08/17 PO 2323 Losartan Potassium 25 MG DAILY 08/17 09 DCD 08/18 PO 0809 Nitroglycerin 0.5 GM ONCE ONE 08/17 2300 DC 08/17 TOP 08/17 2301 2319 Omeprazole 40 MG DAILY AC 08/17 0700 DCD 08/18 PO 0555 Ranolazine 500 MG BID 08/17 09 DCD 08/18 PO 0808 Ticagrelor 90 MG BID 08/17 0900 DCD 08/18 PO 0808 Last 24 Hrs of Lab/Leonel Results Last 24 Hrs of Labs/Mics: Laboratory Tests 08/18/17 0841: Anion Gap 15, Estimated GFR 27 L, BUN/Creatinine Ratio 22.5, CBC w Diff MAN DIFF ORDERED, RBC 3.77 L, MCV 97.8 H, MCH 33.4 H, MCHC 34.2, RDW 16.9 H, MPV 9.8, Gran % 91.6 H, Lymphocytes % 3.6 L, Monocytes % 4.8, Eosinophils % 0, Basophils % 0, Absolute Granulocytes 12.4 H, Absolute Lymphocytes 0.5 L, Absolute Monocytes 0.6, Absolute Eosinophils 0, Absolute Basophils 0, Platelet Estimate VERIFIED BY SMEAR, Polychromasia 1+, Poikilocytosis 1+, Anisocytosis 1+ , Ovalocytes 1+ Microbiology 08/17 1630 LOWER RESP: Respiratory Culture - RES 08/17 1630 LOWER RESP: Gram Stain - RES Lines/Diet/Fluids Restraints: none Assessment/Plan Assessment: Mr. Moffett is a pleasant 67-year-old male with a good sense of humor with past medical history of coronary artery disease status post PCI in 2013, 2016, hypertension, hyperlipidemia, peripheral artery disease, COPD on 2 L of home oxygen, history of lung cancer status post right upper lobectomy, hepatitis C, GERD, COPD stage III presents with to the emergency department with chief complaint of worsening shortness of breath. Problem #1 heart failure with preserved ejection fraction. * Patient's presentation was thought to be secondary to CHF exacerbation and therefore he was treated with IV Lasix with initial chest x-ray did show increased interstitial lung markings. * Initially 40 mg IV Lasix daily was given. * Subsequently while monitoring intake and output along with the weight, he was switched to 60 mg of by mouth Lasix. * Cardiology consult appreciated. * It was pleasure mine that he would be going home on a higher dose of 60 mg once daily Lasix. * Continue to monitor electrolytes and kidney functions while on Lasix. * We will discharge him on 60 mg of by mouth Lasix today. #2 Acute bronchitis * Patient presentation was found to be consistent with bronchitis and initially 1 dose of IV azithromycin was given, this was switched to by mouth azithromycin for a total of 3 days. * Sputum sample did not show any abnormal growth. #3 COPD on 2 L of home oxygen. * Continue home inhalers. * Oxygen saturation above 92%. * Patient is maintaining saturations very well on his baseline of 2 L of oxygen. #4 Acute on Chronic renal insufficiency. * Patient does have a baseline creatinine of 1.7, however the creatinine today was elevated to 2.4 this could be secondary to aggressive diuresis affecting his kidney, he will need to have his creatinine function monitored as outpatient. * This was explained to him as his home dosage of Lasix has also been increased. * He is to follow-up with his primary care practitioner and bacteriology professor to reevaluate his Lasix dosage along with rechecking of kidney function tests. We will continue all his other home medications upon discharge. DVT Px Full code. On heart healthy diet. Problem List: 1. CHF exacerbation 2. COPD exacerbation 3. Renal failure 4. CHF (congestive heart failure) Pain Ratin Pain Location: .. Pain Goal: Remain pain free Pain Plan: .. Tomorrow's Labs & Rationales: none Discharge Plan Discharge Disposition: home Stable for Discharge? Yes Anticipated Discharge (Day): today If Discharged Today/In 24 Hrs: enter [facility] discharge ord, W-10/discharge paper done, CMR done Chloé Churchill 08/18/17 1358: Attending MD Review Statement Attending Statement Attending MD Statement: examined this patient, discuss w/resident/PA/UNDERPRESSER HAND, agreed w/resident/PA/UNDERPRESSER HAND, discussed with family, reviewed EMR data (avail), discussed with nursing, discussed with case mgmt, reviewed images, amended to note Attending Assessment/Plan: Patient on baseline home oxygen. He wants to leave hospital. Patient is medically stable for discharge. Needs to follow up with his cardiology Dr Thaddeus jacques and Pulmoanry at [facility].
[2017-08-18 06:47] VITALS: BP 132/62
[2017-08-18 08:09] VITALS: BP 132/62
[2017-08-18 09:21] LABS: ABSOLUTE BASOPHIL COUNT 0 /CUMM (0.0-0.2); ABSOLUTE EOSINOPHIL COUNT 0 /CUMM (0.0-0.7); ABSOLUTE GRANULOCYTE CT 12.4 /CUMM (1.4-6.5); ABSOLUTE LYMPH COUNT 0.5 /CUMM (1.2-3.4); ABSOLUTE MONOCYTE COUNT 0.6 /CUMM (0.10-0.60); BASOPHIL % 0 % (0.0-2.0); EOSINOPHIL % 0 % (0-5); GRANULOCYTE % 91.6 % (42.2-75.2); HEMATOCRIT 36.8 % (42-52); MEAN CORPUSCULAR HGB 33.4 PG (27.0-31.0); MEAN CORPUSCULAR HGB CONC 34.2 G/DL (33.0-37.0); MEAN CORPUSCULAR VOLUME 97.8 FL (80.0-94.0); MEAN PLATELET VOLUME 9.8 FL (7.4-10.4); PLATELET COUNT 138 /CUMM (130-400); RBC DISTRIBUTION WIDTH 16.9 % (11.5-14.5); RED BLOOD CELL CT 3.77 /CUMM (4.70-6.10); WHITE BLOOD CELL COUNT 13.6 /CUMM (4.8-10.8)
--- NOTE | 2017-08-18 09:46 | PN- Cardiology ---
Subjective Subjective: Telemetry reviewed. Sinus rhythm rate of 76 Objective Vital Signs and I&Os Vital Signs Date Time Temp Pulse Resp B/P B/P Pulse O2 O2 Flow FiO2 Mean Ox Delivery Rate 08/18 0809 75 132/62 08/18 0809 75 132/62 08/18 0808 75 132/62 08/18 0808 75 132/75 08/18 0647 97.4 73 18 132/62 97 Nasal Cannula 08/17 2244 97.4 85 18 138/60 100 Nasal 2.0L Cannula 08/17 2223 95 Nasal 2.0L Cannula 08/17 2017 84 132/70 08/17 2018 84 132/70 08/17 1953 96 Nasal 2.0L Cannula 08/17 1600 97 Nasal 2.0L Cannula 08/17 1500 97.7 74 20 110/60 96 08/17 1423 95 Nasal 2.0L Cannula 08/17 1228 97.4 77 16 104/51 97 Room Air 08/17 1130 Nasal 2.0L Cannula 08/17 1024 97.2 81 18 114/53 95 Nasal 2.0L Cannula Intake & Output 08/18 1600 08/18 0800 08/18 0000 08/17 1600 08/17 0800 08/17 0000 Intake Total 50 960 240 100 Output Total 600 225 800 Balance -550 735 240 -700 Intake, IV 250 100 Intake, Oral 50 710 240 Output, Urine 600 225 800 Patient 155 lb 154 lb 155 lb Weight Weight Bed scale Bed scale Reported by Patient Measurement Method Physical Exam: General exam patient was comfortable anxious to go home Normocephalic atraumatic Eyes sclera anicteric conjunctiva showed no pallor extraocular muscles are normal [place] neck no jugular venous distention no thyroid masses no carotid bruits bilateral carotid endarterectomy scar. Next chest lungs scattered wheezes bilaterally Heart regular rhythm with a 1/6 systolic murmur Abdomen soft no organomegaly bowel sounds normal Extremities no clubbing cyanosis or edema Neurological no gross motor or sensory deficits Current Medications: Current Medications Sig/Carlito Start time Last Medication Dose Route Stop Time Status Admin Acetaminophen 650 MG Q6P PRN 08/17 1730 AC 08/17 PO 1720 Acetaminophen 325 MG Q6P PRN 08/17 1630 DC 08/17 PO 1712 Albuterol Sulfate 3 ML BID 08/17 2100 AC 08/17 INH 1952 Allopurinol 100 MG DAILY 08/17 0900 AC 08/18 PO 0809 Aspirin Buffered 81 MG DAILY 08/17 0900 AC 08/18 PO 0809 Atorvastatin Calcium 80 MG 1700 08/17 1700 AC 08/17 PO 1554 Azithromycin 500 MG DAILY 08/17 1427 AC 08/17 Sodium Chloride 250 ML IV 1554 Carvedilol 12.5 MG BID 08/17 0900 AC 08/18 PO 0809 Furosemide 60 MG DAILY 08/18 0900 AC 08/18 PO 0809 Heparin Sodium 5,000 UNIT Q8 08/17 0600 AC 08/18 (Porcine) SC 0555 Isosorbide 60 MG DAILY 08/18 0900 AC 08/18 Mononitrate PO 0808 Isosorbide 30 MG DAILY 08/17 0900 DC 08/17 Mononitrate PO 0914 Lorazepam 1 MG BID PRN 08/17 1630 AC 08/17 PO 2323 Losartan Potassium 25 MG DAILY 08/17 0900 AC 08/18 PO 0809 Nitroglycerin 0.5 GM ONCE ONE 08/17 2300 DC 08/17 TOP 08/17 2301 2319 Omeprazole 40 MG DAILY AC 08/17 0700 AC 08/18 PO 0555 Potassium Chloride 0 .STK-MED ONE 08/17 1043 DC PO Potassium Chloride 60 MEQ ONCE ONE 08/17 1030 DC 08/17 PO 08/17 1031 1041 Ranolazine 500 MG BID 08/17 0900 AC 08/18 PO 0808 Ticagrelor 90 MG BID 08/17 0900 AC 08/18 PO 0808 Results Last 48 Hrs of Labs/Mics: Laboratory Tests 08/18/17 0841: Sodium Pending, Potassium Pending, Chloride Pending, Carbon Dioxide Pending, Anion Gap Pending, BUN Pending, Creatinine Pending, BUN/Creatinine Ratio Pending , CBC w Diff Pending, WBC Pending, RBC Pending, Hgb Pending, Hct Pending, MCV Pending, MCH Pending, MCHC Pending, RDW Pending, Plt Count Pending, MPV Pending 08/17/17 0730: Troponin I Cancelled 08/17/17 0630: Anion Gap 14, Estimated GFR 36 L, BUN/Creatinine Ratio 12.6, Hemoglobin A1c 5.7 , Troponin I 0.07, CBC w Diff NO MAN DIFF REQ, RBC 3.61 L, MCV 99.7 H, MCH 32.9 H, MCHC 33.0, RDW 17.4 H, MPV 9.6, Gran % 95.1 H, Lymphocytes % 3.8 L, Monocytes % 1.0 L, Eosinophils % 0.1, Basophils % 0, Absolute Granulocytes 9.8 H, Absolute Lymphocytes 0.4 L, Absolute Monocytes 0.1, Absolute Eosinophils 0, Absolute Basophils 0 08/17/17 0125: Anion Gap 13, Estimated GFR 36 L, BUN/Creatinine Ratio 12.1, Glucose 110 H, Calcium 9.4, Total Bilirubin 1.3, Direct Bilirubin 0.4, AST 19, ALT 24, Alkaline Phosphatase 66, Troponin I 0.07, Kcr-M-Yaypgxomxty Pept 2790 H, Total Protein 5.9 L, Albumin 3.7, Amylase 98, Lipase 69, D-Dimer High Sensitivty 267 H, CBC w Diff NO MAN DIFF REQ, RBC 3.53 L, MCV 98.5 H, MCH 33.5 H, MCHC 34.0, RDW 16.9 H, MPV 9.4, Gran % 86.1 H, Lymphocytes % 4.9 L, Monocytes % 8.8, Eosinophils % 0.2, Basophils % 0, Absolute Granulocytes 9.4 H, Absolute Lymphocytes 0.5 L, Absolute Monocytes 1.0 H, Absolute Eosinophils 0, Absolute Basophils 0 Assessment/Plan Assessment/Plan In summary this 67-year-old gentleman has a following problems 1. Shortness of breath likely multifactorial 2. Possible bronchitis 3. Oxygen dependent COPD 4. Acute on chronic heart failure with preserved ejection fraction 5. Chronic renal insufficiency 6. History of lung CA with prior lobectomy 7. Hypertension/hyperlipidemia 8. Chronic coronary artery disease status post multiple stents with known chronic RCA occlusion. He had stenting of the left circumflex in November 2013, stent to the LAD in September 2016, PCI the LAD in February 2017, and PCI of the diagonal branch on June 06, 2017. He appears compensated and anxious to go home. We can discharge him on 60 mg of Lasix. Echocardiogram can be done as an outpatient. Continue telemetry? Yes
[2017-08-18] MEDS ORDERED: AZITHROMYCIN250 M1 PO (12:21)
--- NOTE | 2017-08-18 12:23 | Patient Discharge Instructions ---
Discharge Instructions General Discharge Information You were seen/treated for: Bronchitis Special Instructions: please continue to take one more dose of antibiotics as prescribed. please continue to follow up with your PCP upon discharge within one week. Diet Continue normal diet: No Recommended Diet: Heart Healthy Activity Full Activity/No Limits: Yes Acute Coronary Syndrome Inclusion Criteria At DC or during hospital stay patient has or had the following: ACS DIAGNOSIS No Discharge Core Measures Meds if any: Prescribed or Continued at Discharge Meds if any: NOT Prescribed or Continued at Discharge Congestive Heart Failure Inclusion Criteria At DC or during hospital stay patient has or had the following: CHF DIAGNOSIS No Discharge Core Measures Meds if any: Prescribed or Continued at Discharge Meds if any: NOT Prescribed or Continued at Discharge Cerebrovascular accident Inclusion Criteria At DC or during hospital stay patient has or had the following: CVA/TIA Diagnosis No Discharge Core Measures Meds if any: Prescribed or Continued at Discharge Meds if any: NOT Prescribed or Continued at Discharge Venous thromboembolism Inclusion Criteria VTE Diagnosis No VTE Type NONE VTE Confirmed by (Test) NONE Discharge Core Measures - Per Current guidelines, there needs to be overlap - treatment for the first 5 days of Warfarin therapy. - If discharged on Warfarin prior to 5 days of - overlap therapy, the patient will need to be - assessed for post discharge needs including - *Post discharge parental anticoagulation - *Warfarin and/or parental anticoagulation education - *Follow up date to check INR post discharge At least 5 days overlap therapy as Inpatient No Meds if any: Prescribed or Continued at Discharge Note: Overlap Therapy is Warfarin and Anticoagulant Meds if any: NOT Prescribed or Continued at Discharge
--- NOTE | 2017-08-18 12:31 | Discharge Summary ---
Visit Information Visit Dates Admission Date: 08/17/17 Discharge Date: 08/18/2017 Hospital Course Course Attending Physician: Chloé Churchill MD Primary Care Physician: Rayray BARRIENTOS,Nacho Maldonado Hospital Course: Mr. Marcus is a 67-year-old male with past medical history of coronary artery disease status post PCI in 2013, 2016, hypertension, hyperlipidemia, peripheral arterial disease, COPD on 2 L of home oxygen, lung cancer status post right upper lobectomy, hepatitis C, GERD, chronic kidney disease stage III presents her to [facility] on with chief complaint of worsening shortness of breath along with some sputum production which was light brownish in color since one week prior to presentation and worsening shortness of breath since one day prior to presentation. On arrival at the emergency department he was afebrile, pulse was found to be between 98 -113, respiratory rate of 18, blood pressure of 181/81 which came down to 127/58, he was saturating 93% on 2 L of nasal cannula. He had a white count of 10.9 which 8/H of 11.8/34.8, BUN/creatinine 23/1.9, proBNP was elevated at 2790, d-dimer was found to be 267, glucose 110, other than that liver function tests and other electrolytes were mostly within normal limit. EKG did not show any acute ischemic findings but tachycardia was noted. Chest x-ray showed diffuse interstitial lung markings. He was admitted to the telemetry unit for management of following insurance. Problem #1 acute on chronic hypoxic respiratory failure secondary to CHF exacerbation. His worsening shortness of breath was thought to be secondary to pulmonary congestion and CHF exacerbation, he was treated with IV Lasix 40 mg while inpatient, cardiology was consulted, blood and respiratory cultures were found to be negative. He was changed to by mouth 60 mg of Lasix on the day of discharge. Of note this is a higher dose of Lasix previously the patient was an 40 mg therefore his final dosage of Lasix was increased to 60 mg daily with plan to follow-up with cardiology and primary care within 1 week of discharge. Problem #2 bronchitis. Patient continued to present do some clear sputum associated with cough, he was a chronic smoker previously, his presentation was thought to be secondary to acute bronchitis therefore he was treated with a total of 3 days of azithromycin. He seemed to improve nicely while on antibiotic. #3 of COPD. He was maintained on 2 L of oxygen which is his baseline oxygen at home, he was asked to follow up with pulmonary upon discharge, all his home medications were continued. Allergies: Coded Allergies: amoxicillin (Severe, TROUBLE BREATHING AND RASH 08/01/15) Penicillins (UNKNOWN 08/01/15) Opioids - Morphine Analogues (SENSITIVITY 08/01/15) Uncoded Allergies: ANTIBIOTIC THAT STARTS WITH AN "A" (UNKNOWN 05/05/12) Significant Procedures: SERVICE DATE: 08/17/17 EXAM TYPE: RAD - XRY-PORTABLE CHEST XRAY EXAMINATION: XR PORTABLE CHEST CLINICAL INFORMATION: Chest pain. COMPARISON: Chest x-ray July 02, 2017, August 28, 2016 TECHNIQUE: Portable frontal view of the chest was obtained. 1:28 AM FINDINGS: There is emphysematous lucency of the upper lobes right greater than left. Is diffuse increased reticular opacities. This could be due to interstitial edema or interstitial pneumonitis. This is worse in the left upper lobe but improved in the right mid and lower lobe since the prior chest x-ray of July 02, 2017. No focal consolidation. No pleural effusion. No pneumothorax. The cardiomediastinal contours are unchanged. There are calcifications of the aortic arch. There are surgical clips at the base of the right neck. IMPRESSION: Diffuse increased interstitial lung markings. Differential diagnosis would include a cardiogenic etiology, interstitial edema, versus inflammatory or infectious. Pertinent Lab Results: Vital Signs Date Time Temp Pulse Resp B/P B/P Pulse O2 O2 Flow FiO2 Mean Ox Delivery Rate 08/18 1111 95 Nasal 2.0L Cannula 08/18 0809 75 132/62 08/18 0809 75 132/62 08/18 0808 75 132/62 08/18 0808 75 132/75 08/18 0800 97 Nasal 2.0L Cannula 08/18 0647 97.4 73 18 132/62 97 Nasal Cannula 08/17 2244 97.4 85 18 138/60 100 Nasal 2.0L Cannula 08/17 2223 95 Nasal 2.0L Cannula 08/17 2018 84 132/70 08/17 2018 84 132/70 08/17 1953 96 Nasal 2.0L Cannula 08/17 1600 97 Nasal 2.0L Cannula 08/17 1500 97.7 74 20 110/60 96 08/17 1423 95 Nasal 2.0L Cannula 08/17 1228 97.4 77 16 104/51 97 Room Air 08/17 1130 Nasal 2.0L Cannula 08/17 1024 97.2 81 18 114/53 95 Nasal 2.0L Cannula 08/17 0852 96 Nasal 2.0L Cannula 08/17 0846 96 Nasal 2.0L Cannula 08/17 0841 97.9 82 20 119/58 96 Nasal 2.0L Cannula 08/17 0737 97.1 82 18 119/58 96 Nasal 2.0L Cannula 08/17 0734 96 Nasal Cannula 08/17 0617 98.4 82 18 128/48 98 Room Air 08/17 0416 98.0 86 18 132/60 98 Nasal 2.0L Cannula 08/17 0240 98.2 98 18 127/58 95 Nasal 2.0L Cannula 08/17 0118 95 Nasal 2.0L Cannula 08/17 0107 93 Nasal 2.0L Cannula 08/17 0102 98.5 113 18 181/81 93 Nasal 3.0L Cannula Microbiology Date/Time Procedure - Status Source Growth 08/17 1630 Respiratory Culture - COMP LOWER RESP 08/17 1630 Gram Stain - COMP LOWER RESP 08/17 0215 Blood Culture - RES BLOOD Orders Procedure Date/time Status CBC WITHOUT DIFFERENTIAL 08/18 0600 Complete BASIC ELECTROLYTES PLUS BUN&CR 08/18 0600 Complete AEROSOL CHG 08/18 UNK Complete OXYGEN 08/18 UNK Complete OXYGEN DAILY CHARGE 08/18 UNK Complete Discharge Patient 08/18 UNK Active CHF Diet 08/17 B Active Patient Data 08/17 1644 Active Change service to 08/17 1631 Active RT: Evaluation 08/17 1148 Active House Staff 08/17 0945 Active Weight 08/17 0843 Active Vital Signs 08/17 0843 Active Teach/Educate 08/17 0843 Active Pain Treatment and Response 08/17 0843 Active Nutritional Intake, Monitor 08/17 0843 Active Isolation 08/17 0843 Active Intake & Output 08/17 0843 Active Patient Care Conference 08/17 0843 Active Activity/Ambulation 08/17 0843 Active EKG 08/17 0730 Active TROPONIN LEVEL 08/17 0630 Complete GLYCOSYLATED HGB 08/17 0630 Complete CBC WITHOUT DIFFERENTIAL 08/17 0600 Complete BASIC ELECTROLYTES PLUS BUN&CR 08/17 0600 Complete TRC EVALUATION (GEN) 08/17 0419 Complete OXYGEN SETUP (GEN) 05/23 0419 Active Pathway - chart 08/17 418 Active House Staff 08/17 418 Active LOWER RESPIRATORY CULTURE 08/17 418 Complete Saline Lock 08/17 312 Active Misc Message 08/17 312 Active ED Holding Orders 08/17 312 Active Admit to inpatient 08/17 312 Active Vital Signs 08/17 312 Active Code Status 08/17 312 Active Add-on Test (ER Only) 08/17 024 Active BLOOD CULTURE 08/17 214 Active B-TYPE NATRIURETIC PEP (BNP) 08/17 124 Complete BLOOD CULTURE 08/17 104 Active TROPONIN LEVEL 08/17 101 Complete LIPASE 08/17 101 Complete HEPATIC FUNCTION PANEL 08/17 101 Complete D-DIMER 08/17 101 Complete CBC WITHOUT DIFFERENTIAL 08/17 101 Complete BASIC METABOLIC PANEL 08/17 101 Complete AMYLASE 08/17 101 Complete EKG 08/17 101 Active OXYGEN SETUP CHG 08/17 UNK Complete AEROSOL CHG 08/17 UNK Complete OXYGEN 08/17 UNK Complete OXYGEN TRANSPORT 08/17 UNK Complete OXYGEN DAILY CHARGE 08/17 UNK Complete THERAPIST ORDERS 08/17 UNK Complete Lab Add-on Test 08/17 UNK Active VTE Mechanical Prophylaxis 08/17 UNK Active Intake & Output 08/17 UNK Active FingerStick- Glucose 08/17 UNK Active Disposition Summary Disposition Principal Diagnosis: #1 Acute on chronic heart failure with preserved ejection fraction. #2 acute bronchitis Additional Diagnosis: 3 COPD exacerbation. #4 chronic renal insufficiency. #5 history of lung cancer with prior lobectomy. #6 hypertension #7 hyperlipidemia. #8 chronic coronary artery disease with multiple stents with chronic RCA occlusion. Discharge Disposition: home or self care Discharge Instructions General Discharge Information Code Status: Full Code Patient's Diet: heart healthy Patient's Activity: As tolerated Follow-Up Instructions/Appts: These follow-up with your PCP, pulmonary and oil house attendant within 1 week of discharge. Please evaluate the Lasix dosage which has been increased from 40 mg to 60 mg daily along with monitoring the renal function. Medications at Discharge Discharge Medications: Stop taking the following medications: Ondansetron (Zofran Odt) 4 MG TAB.RAPDIS SUBLINGUAL THREE TIMES DAILY as needed for NAUSEA Qty = 10 Furosemide (Lasix) 40 MG TABLET ORAL DAILY Continue taking these medications: Fluticasone/Salmeterol (Advair 250-50 Diskus) 250 MCG-50 MCG/DOSE BLST.W.DEV 1 Puff Inhale through mouth TWICE DAILY Comments: NOT GIVEN IN HOSPITAL Aspirin (Ecotrin*) 81 MG TABLET. 1 Tablet ORAL DAILY Comments: Last Taken: 08/18/17 Time: 09:12 AM Rosuvastatin Calcium (Crestor) 40 MG TABLET 1 Tablet ORAL DAILY Comments: LIPITOR GIVEN IN HOSPITAL Last Taken: 08/17/17 Time: 16:52 PM LORazepam (Ativan) 1 MG TABLET 1 Tablet ORAL TWICE DAILY as needed for anxiety Comments: Last Taken: 05/27/17 Time: 05:21 AM Potassium Chloride (Klor-Con M20) 20 MEQ TAB.ER.PRT 1 Tablet ORAL TWICE DAILY Comments: TAKE DIRECTED Last Taken: 05/27/17 Time: 11:32 AM Ferrous Sulfate (Ferrous Sulfate) 325 MG (65 MG IRON) TABLET 1 Tablet ORAL DAILY Comments: Last Taken: 05/27/17 Time: 09:12 AM Aclidinium [place] (Tudorza Pressair) 400 MCG/ACTUATION AER.POW.BA 1 PUFF ORAL TWICE DAILY Comments: DID NOT TAKE IN HOSPITAL Valsartan (Diovan) 80 MG TABLET 1 Tablet ORAL DAILY Comments: Last Taken: GIVEN COZZAR Time:08/18/17 Cholecalciferol (Vitamin D3) 1,000 UNIT TABLET 1 Tablet ORAL DAILY Comments: Last Taken: 05/27/17 Time: 09:12 AM Omeprazole (Omeprazole) 40 MG CAPSULE. 1 Capsule ORAL DAILY Comments: Last Taken: 08/18/17 Time: 05:20 AM Ticagrelor (Brilinta) 90 MG TABLET 90 Mill[place]ram ORAL TWICE DAILY Qty = 14 Comments: Last Taken: 08/18/17 Time: 09:12 AM Albuterol Sulfate (Proair Hfa) 90 MCG HFA.AER.AD 2 Puff Inhale through mouth EVERY 4-6 HOURS NEEDED as needed for SHORTNESS OF BREATH Comments: Last Taken: 05/25/17 Time: 09:03 AM Carvedilol (Carvedilol) 25 MG TABLET 0.5 Tablet ORAL TWICE DAILY Comments: Last Taken: 08/18/17 Time: 09:12 AM Isosorbide Mononitrate (Isosorbide Mononitrate ER) 30 MG TAB.ER.24H 1 Tablet ORAL DAILY Qty = 90 Comments: Last Taken: 08/18/17 Time: 09:12 AM Ranolazine (Ranexa) 500 MG TAB.ER.12H 1 Tablet ORAL TWICE DAILY Comments: Last Taken:08/18/17 Time:1000 Allopurinol (Allopurinol) 100 MG TABLET 1 Tablet ORAL DAILY Comments: Last Taken:08/18/17 Time:1000 Start taking the following new medications: Azithromycin (Azithromycin) 250 MG TABLET 1 Tablet ORAL DAILY Qty = 1 No Refills Comments: Last Taken:08/18/17 GIVEN IV FORM Time:1000 Furosemide (Lasix) 40 MG TABLET 1.5 Tablet ORAL DAILY Qty = 30 No Refills Copies To: Rayray BARRIENTOS,Nacho Maldonado; Susan BARRIENTOS,Nir Joel MD Review Statement Documenting Attending: Chloé Churchill MD
[2017-08-18] MEDS ORDERED: LASIX40 M1 PO ×2 (13:07→13:08)
== END 2017-08-18 14:55 | DRG 291 ==
LOC: ERH 00:59 → ERHI 03:13 → 1NO 03:13 → ENRESERV 12:08 → ENTRNSPT 13:53 → EDTRNSPT 13:56 → EDTRNSPTSTS 13:56 → 1NO 14:04 → CMPTRNSPT 14:06 → 1NO 16:39 → ENPENDDIS 08-18 12:37 → ENTRNSPT 08-18 14:33 → EDTRNSPT 08-18 14:55 → 1NO 08-18 14:55 → CMPTRNSPT 08-18 15:15
PROVIDERS: Internal Medicine; Pediatrics; Student in an Organized Health Care Education/Training Program
DX: I13.0 Hypertensive heart and chronic kidney disease with heart failure and stage 1 through stage 4 chronic kidney disease, or unspecified chronic kidney disease (principal); I50.33 Acute on chronic diastolic (congestive) heart failure; J96.11 Chronic respiratory failure with hypoxia; Z99.81 Dependence on supplemental oxygen; J44.0 Chronic obstructive pulmonary disease with (acute) lower respiratory infection; N18.3 Chronic kidney disease, stage 3 (moderate); B18.2 Chronic viral hepatitis C; J20.9 Acute bronchitis, unspecified; I25.10 Atherosclerotic heart disease of native coronary artery without angina pectoris; Z98.61 Coronary angioplasty status; E78.5 Hyperlipidemia, unspecified; I73.9 Peripheral vascular disease, unspecified; Z85.118 Personal history of other malignant neoplasm of bronchus and lung; Z90.2 Acquired absence of lung [part of]; K21.9 Gastro-esophageal reflux disease without esophagitis; Z88.1 Allergy status to other antibiotic agents; Z88.5 Allergy status to narcotic agent; Z88.0 Allergy status to penicillin; M54.9 Dorsalgia, unspecified; F41.9 Anxiety disorder, unspecified; G50.0 Trigeminal neuralgia; Z79.51 Long term (current) use of inhaled steroids
CPT/HCPCS: 1NP; 36415; 71045; 82436; 87040; 87070; 93005; 93010; 96374; 96375; J0456; J1644; J1940; J2930; J3490; J7040